=== PATIENT | male | born 1960 | race Caucasian/White ===

== ENCOUNTER → 2017-09-17 | Outpatient (CLI) | payer OTHER ==
[~2017-09-17] MED LIST: ALBIPROI INH; ALBU90OI; ARIP10 PO; ASPI325; ASPI325 PO; ATOR40TA PO; BASAGLAR K100 UNIT/1 SC; CEPH500 PO; CLOP75 PO; CRUTCH4 USE; FLUO10 PO; FLUO20 PO; Flomax0.4 MG PO; GABA100; GABA300 PO; GLIP5; HYDACE5 PO; IBUP800 PO; INSULANPEN SC; LAMO100 PO; LEVSOD150 PO; LISI5 PO; METF500 PO; METPRE4DP PO; Norco 7.5-3251 EACH PO; Novolog Fl100 UNIT/1 SC; OXYACE5T PO; PANT40 PO; POTASSIUM99 MG PO; PROM25 PO; Percocet 5-3251 EACH PO; RXERYTOPTH OP; RXHYDACE PO; RXOXYACE PO; SYNTHROID25 MCG PO; TRAZ100 PO; VICODIN 5-3001 EACH PO; ZOLP5 PO
== END ==
LOC: LAB SHORT 16:11 → LAB 16:11
DX: A49.02 Methicillin resistant Staphylococcus aureus infection, unspecified site (principal)
CPT/HCPCS: 87070; 87205

== ENCOUNTER 2018-01-05 12:30 | Emergency (ER) | payer OTHER ==
[~2018-01-05] VITALS: Ht 172.7 cm; Wt 122.5 kg
[~2018-01-05 12:30] MED LIST changes: +ARIP10; -ARIP10 PO; -ASPI325 PO; -ATOR40TA PO; -BASAGLAR K100 UNIT/1 SC; -CLOP75 PO; -IBUP800 PO; -LEVSOD150 PO; +LEVSOD50; -LISI5 PO; -Norco 7.5-3251 EACH PO; -Novolog Fl100 UNIT/1 SC; -PANT40 PO; -POTASSIUM99 MG PO; +ZOLP5; -ZOLP5 PO
[2018-01-05] MEDS ORDERED: LEVSOD150 PO (12:37)
[2018-01-05] MEDS ORDERED: ATOR10 PO (12:37)
[2018-01-05] MEDS ORDERED: Norco 7.5-3251 EACH PO (13:40)
== END 2018-01-05 13:46 | disposition home or self-care (01) ==
LOC: ER 12:30
DX: M79.672 Pain in left foot (principal); Z88.8 Allergy status to other drugs, medicaments and biological substances; Z79.899 Other long term (current) drug therapy; Z79.4 Long term (current) use of insulin; J44.9 Chronic obstructive pulmonary disease, unspecified; E11.9 Type 2 diabetes mellitus without complications; I25.2 Old myocardial infarction; Z87.891 Personal history of nicotine dependence
CPT/HCPCS: 10160; 99283

== ENCOUNTER 2018-03-17 07:03 | Day surgery (SDC) | payer OTHER ==
[~2018-03-17] VITALS: Ht 172.7 cm; Wt 125.9 kg
[~2018-03-17 07:03] MED LIST changes: -ARIP10; +ARIP10 PO; +ATOR40TA PO; +BASAGLAR K100 UNIT/1 SC; +IBUP800 PO; +LEVSOD150 PO; -LEVSOD50; +LISI5 PO; +Norco 7.5-3251 EACH PO; +Novolog Fl100 UNIT/1 SC; +PANT40 PO; +POTASSIUM99 MG PO; -ZOLP5; +ZOLP5 PO
[2018-03-17] MEDS ORDERED: CLOP75 PO (14:00)
[2018-03-17] MEDS ORDERED: ASPI325 PO (14:00)
== END 2018-03-17 18:17 | disposition home or self-care (01) ==
LOC: MHTC 07:03 → ICUW 15:24 → MHTC 18:17
PROC: 04CQ3ZZ Extirpation of Matter from Left Anterior Tibial Artery, Percutaneous Approach (ICD-10-PCS; principal; 2018-03-17)
PROC: 047L3Z1 Dilation of Left Femoral Artery using Drug-Coated Balloon, Percutaneous Approach (ICD-10-PCS; principal; 2018-03-17)
PROC: 04CL3ZZ Extirpation of Matter from Left Femoral Artery, Percutaneous Approach (ICD-10-PCS; principal; 2018-03-17)
PROC: 04CU3ZZ Extirpation of Matter from Left Peroneal Artery, Percutaneous Approach (ICD-10-PCS; principal; 2018-03-17)
PROC: 047Q3Z1 Dilation of Left Anterior Tibial Artery using Drug-Coated Balloon, Percutaneous Approach (ICD-10-PCS; principal; 2018-03-17)
PROC: 047U3Z1 Dilation of Left Peroneal Artery using Drug-Coated Balloon, Percutaneous Approach (ICD-10-PCS; principal; 2018-03-17)
DX: I70.212 Atherosclerosis of native arteries of extremities with intermittent claudication, left leg (principal); I70.92 Chronic total occlusion of artery of the extremities; I25.10 Atherosclerotic heart disease of native coronary artery without angina pectoris; I25.2 Old myocardial infarction; E11.65 Type 2 diabetes mellitus with hyperglycemia; E11.319 Type 2 diabetes mellitus with unspecified diabetic retinopathy without macular edema; E11.40 Type 2 diabetes mellitus with diabetic neuropathy, unspecified; J44.9 Chronic obstructive pulmonary disease, unspecified; E03.9 Hypothyroidism, unspecified; G47.33 Obstructive sleep apnea (adult) (pediatric); E78.5 Hyperlipidemia, unspecified; M19.90 Unspecified osteoarthritis, unspecified site; Z79.899 Other long term (current) drug therapy; Z79.4 Long term (current) use of insulin; Z87.891 Personal history of nicotine dependence; Z88.8 Allergy status to other drugs, medicaments and biological substances
CPT/HCPCS: 37225; 37229; 37233; 75630; 75774; 76937; 82947; 85347; 99152; 99153; C1714; C1725; C1769; C1884; C1885; C1887; C1894; C2623; J1644; J2250; J2720; J3010; J7030; J7040; Q9967

== ENCOUNTER 2018-04-10 13:06 | Emergency (ER) | payer OTHER ==
[~2018-04-10] VITALS: Ht 172.7 cm; Wt 124.7 kg
[~2018-04-10 13:06] MED LIST changes: +ASPI325 PO; +CLOP75 PO
[2018-04-10 13:45] LABS: BASOPHILS ABSOLUTE AUTO 0.05 K/mm3 (0.00-0.23); BASOPHILS PERCENT AUTO 1 % (0-2); EOSINOPHILS ABSOLUTE AUTO 0.31 K/mm3 (0.00-0.68); EOSINOPHILS PERCENT AUTO 3 % (0-6); Hematocrit 41.4 % (37.0-53.0); Hemoglobin 13.4 g/dL (13.5-17.5); IMMATURE GRAN ABSOLUTE AUTO 0.02 K/mm3 (0.00-0.10); IMMATURE GRAN PERCENT AUTO 0 % (0-1); LYMPHOCYTES ABSOLUTE AUTO 3.04 K/mm3 (0.84-5.20); LYMPHOCYTES PERCENT AUTO 31 % (21-46); MONOCYTES ABSOLUTE AUTO 0.69 K/mm3 (0.16-1.47); MONOCYTES PERCENT AUTO 7 % (4-13); Mean Corpuscular HGB 30.4 pg (26.0-34.0); Mean Corpuscular HGB Conc 32.4 g/dL (31.5-36.5); Mean Corpuscular Volume 94 fL (80-100); Mean Platelet Volume 10.6 fL (9.1-12.4); NEUTROPHILS ABSOLUTE AUTO 5.59 K/mm3 (1.96-9.15); NEUTROPHILS PERCENT AUTO 58 % (41-73); Platelet Count 321 K/mm3 (150-400); RDW Coefficient Variation 12.8 % (11.7-14.2); RDW Standard Deviation 44.3 fL (35.1-46.3); Red Blood Cell Count 4.41 M/mm3 (4.30-5.90)
[2018-04-10 14:05] LABS: Alanine Aminotransfer (ALT/SGP 44 U/L (12-78); Albumin, Blood 3.7 g/dL (3.4-5.0); Albumin/Globulin Ratio 0.9 (0.8-1.8); Alk Phos 137 U/L (50-136); Anion Gap 8 mmol/L (6-16); Aspartate Aminotrans (AST/SGOT 39 U/L (12-37); Bilirubin, Total 0.3 mg/dL (0.1-1.0); Blood Urea Nitrogen 22 mg/dL (8-24); Bun/Creatinine Ratio 16.9 (12.0-20.0); CO2, Blood 27 mmol/L (21-32); Calcium, Blood 8.7 mg/dL (8.5-10.1); Chloride, Blood 102 mmol/L (98-108); Globulin, Blood 4.1 g/dL (2.2-4.0); Glomerular Filtration Rate >60 (60-); Glucose, Blood 304 mg/dL (70-99); Potassium, Blood 4.4 mmol/L (3.5-5.5); Sodium, Blood 137 mmol/L (136-145); Total Protein, Blood 7.8 g/dL (6.4-8.2); Troponin I <0.015 ng/mL (0.000-0.040)
== END 2018-04-10 16:43 | disposition home or self-care (01) ==
LOC: ER 13:06
PROVIDERS: Physician Assistant
DX: R07.2 Precordial pain (principal); M79.661 Pain in right lower leg; J44.9 Chronic obstructive pulmonary disease, unspecified; E11.9 Type 2 diabetes mellitus without complications; I25.2 Old myocardial infarction; F32.9 Major depressive disorder, single episode, unspecified; Z88.8 Allergy status to other drugs, medicaments and biological substances; Z79.899 Other long term (current) drug therapy; Z79.4 Long term (current) use of insulin; Z79.82 Long term (current) use of aspirin; Z79.01 Long term (current) use of anticoagulants; Z79.51 Long term (current) use of inhaled steroids; Z87.891 Personal history of nicotine dependence
CPT/HCPCS: 36415; 71260; 80053; 83690; 83880; 84484; 85025; 93005; 93010; 93971; 96360; 99284-25; J7030; Q9967

== ENCOUNTER 2019-06-27 11:22 | Emergency (ER) | payer MEDICARE, BC ==
[~2019-06-27] VITALS: Ht 172.7 cm; Wt 122.5 kg
[2019-06-27 12:00] LABS: BASOPHILS ABSOLUTE AUTO 0.05 K/mm3 (0.00-0.23); BASOPHILS PERCENT AUTO 1 % (0-2); EOSINOPHILS ABSOLUTE AUTO 0.35 K/mm3 (0.00-0.68); EOSINOPHILS PERCENT AUTO 4 % (0-6); Hematocrit 45.8 % (37.0-53.0); Hemoglobin 14.9 g/dL (13.5-17.5); IMMATURE GRAN ABSOLUTE AUTO 0.04 K/mm3 (0.00-0.10); IMMATURE GRAN PERCENT AUTO 0 % (0-1); LYMPHOCYTES ABSOLUTE AUTO 2.26 K/mm3 (0.84-5.20); LYMPHOCYTES PERCENT AUTO 23 % (21-46); MONOCYTES ABSOLUTE AUTO 0.62 K/mm3 (0.16-1.47); MONOCYTES PERCENT AUTO 6 % (4-13); Mean Corpuscular HGB 29.7 pg (26.0-34.0); Mean Corpuscular HGB Conc 32.5 g/dL (31.5-36.5); Mean Corpuscular Volume 91 fL (80-100); Mean Platelet Volume 10.3 fL (9.1-12.4); NEUTROPHILS ABSOLUTE AUTO 6.39 K/mm3 (1.96-9.15); NEUTROPHILS PERCENT AUTO 66 % (41-73); Platelet Count 316 K/mm3 (150-400); RDW Coefficient Variation 12.9 % (11.7-14.2); RDW Standard Deviation 42.7 fL (35.1-46.3); Red Blood Cell Count 5.01 M/mm3 (4.30-5.90); White Blood Cell Count 9.71 K/mm3 (4.00-11.30)
[2019-06-27 12:30] LABS: Troponin I <0.015 ng/mL (0.000-0.040)
[2019-06-27 12:31] LABS: Alanine Aminotransfer (ALT/SGP 34 U/L (12-78); Albumin, Blood 3.6 g/dL (3.4-5.0); Albumin/Globulin Ratio 0.9 (0.8-1.8); Alk Phos 119 U/L (50-136); Anion Gap 4 mmol/L (6-16); Aspartate Aminotrans (AST/SGOT 26 U/L (12-37); Bilirubin, Total 0.4 mg/dL (0.1-1.0); Blood Urea Nitrogen 21 mg/dL (8-24); CO2, Blood 27 mmol/L (21-32); Calcium, Blood 9.4 mg/dL (8.5-10.1); Chloride, Blood 108 mmol/L (98-108); Creatinine, Blood 0.75 mg/dL (0.60-1.20); Globulin, Blood 4.2 g/dL (2.2-4.0); Glomerular Filtration Rate >60 (60-); Glucose, Blood 124 mg/dL (70-99); Potassium, Blood 4.6 mmol/L (3.5-5.5); Sodium, Blood 139 mmol/L (136-145); Total Protein, Blood 7.8 g/dL (6.4-8.2)
== END 2019-06-27 16:00 | disposition home or self-care (01) ==
LOC: ER 11:22
PROVIDERS: Physician Assistant
DX: M79.661 Pain in right lower leg (principal); J44.9 Chronic obstructive pulmonary disease, unspecified; I25.2 Old myocardial infarction; E11.9 Type 2 diabetes mellitus without complications; F32.9 Major depressive disorder, single episode, unspecified
CPT/HCPCS: 36415; 71046; 80053; 84484; 85025; 85379; 93005; 93010; 99284-25

== ENCOUNTER 2019-10-31 09:10 | Day surgery (SDC) | payer MEDICARE, BC ==
[~2019-10-31] VITALS: Ht 172.7 cm; Wt 120.5 kg
[~2019-10-31 09:10] MED LIST changes: +Cilostazol100 MG PO; +VENTOLIN INH
--- NOTE | 2019-10-31 16:47 | NUR ---
PT BROUGHT BACK TO RECOVERY ROOM WITH FEMSTOP IN PLACE TO LEFT GROIN SITE. REPORTED THAT ANGIOSEAL CLOSURE DEVICE WAS NOT SUCCESSFUL. NO ACTIVE BLEEDING NOTED AT THIS TIME. PT APPEARS DROWSY, SNORING, BUT OPENS EYES TO COMMAND. PT ABLE TO FOLLOW COMMANDS, ALTHOUGH APPEARS ALTERED ASKING REPEATATIVE QUESTIONS. RIGHT PEDAL ACCESS SITES WNL. CLEAR TEGADERMS INTACT TO BOTH PEDAL ACCESS SITES. AWAITING PCU BED FOR EXTENDED RECOVERY. PHONE CALL PLACED TO PT'S TO INFORM HER OF DISCHARGE TIME. WILL CONTINUE TO MONITOR. VSS.
--- NOTE | 2019-10-31 17:13 | NUR ---
TRANSFER OF CARE: THIS NURSE TO TAKE OVER CARE FOR KAITY Yang RN.
--- NOTE | 2019-10-31 18:23 | NUR ---
EXT. RECOVERY ADMISSION / SHIFT SUMMARY: PT ARRIVED TO ICU 11 AT APPROX 1745. ON ARRIVAL, HE IS A&O, PLEASANT & COOPERATIVE. ANGIO SITES TO R DP, R PT & L GROIN. ALL SITES ARE WNL, FREE OF BLEEDING, BRUISING OR HEMATOMA FORMATION. PT ON 1L NC FOR DESATS WHEN SLEEPING R/T LENA DX. LS CLEAR T/O. MONITOR SHOWS SR W/ HR 60s, BP STABLE. PT HAS NO GI COMPLAINTS OTHER THAN BEING HUNGRY, HE IS ABLE TO VOID W/ USE OF URINAL & STAFF ASSIST. NO ACUTE CHANGES SINCE ASSUMING CARE. PT IS NOW SITTING UP W/ HOB AT 30 DEGREES. ALL ANGIO SITES REMAIN STABLE & WNL. PT TOLERATING PO INTAKE W/O DIFFICULTY. PLAN IS FOR HIM TO D/C HOME AT 2030, D/C PAPERWORK HAS BEEN COMPLETED BY HC RN & IS IN CHART. WILL CONTINUE TO MONITOR & REPORT OFF TO ONCOMING RN.
--- NOTE | 2019-10-31 19:58 | NUR ---
REVIEWED DISCHARGE MEDICATIONS WITH PT. WILL REVIEW WITH HIS SPOUSE PRIOR TO DISCHARGE.
--- NOTE | 2019-10-31 20:03 | NUR ---
PT A&0X3. DENIES PAIN. ARMINDA DRESSING INTACT TO RIGHT DP-OLD BLOOD NOTED, BUT IT DOESN'T EXTEND PAST DEMARCATED AREA. PT WITH CLEAR OCCLLUSIVE DRESSING-NO ACUTE BLEEDING OR HEMATOMA TO EITHER SITE-RIGHT DP/PT PULSES 1+ LEFT FEMORAL SITE WITH ANGIOSEAL-RIGHT GROIN IS SOFT AND ARV-PIXOHR-OH BLEEDING OR HEMATOMA. ECG SHOWS SR WITH RATE 60'S. SBP 140-160'S/80-90'S. LUNGS DISTANT, BUT PT DENIES SOB AND MAINTAINS SATS>90% ON RA. TOLERATING PO WELL. MED WITH PLETAL PER DR. MONTALVO ORDERS-SEE EMAR. REVIEWED DISCHARGE INSTRUCTIONS AND MED WITH PT. WILL REVIEW WHEN SPOUSE ARRIVE-LEFT WRITTEN DISCHARGE INSTRUCTIONS AND ENCOURAGED PT TO REVIEW AND ASK QUESTIONS PRN. PT VERBALIZES AGREEMENT.
--- NOTE | 2019-10-31 20:30 | NUR ---
REVIEWED DISCHARGE INSTRUCTIONS WITH PT AND SPOUSE-ALLOWED FOR BOTH TO ANSWER QUESTIONS. PT AND SPOUSE GALLITO DENIED ANY QUESTIONS AT THIS TIME. DISCHARGED TO HOME, OUT VIA WHEELCHAIR WITH DISCHARGE INSTRUCTIONS AND BELONGINGS ON HAND.
== END 2019-10-31 20:30 | disposition home or self-care (01) ==
LOC: MHTC 09:10 → ICUW 17:55 → MHTC 17:55 → ICUW 18:00 → MHTC 20:30
PROC: 04CM3ZZ Extirpation of Matter from Right Popliteal Artery, Percutaneous Approach (ICD-10-PCS; principal; 2019-10-31)
PROC: B41D1ZZ Fluoroscopy of Aorta and Bilateral Lower Extremity Arteries using Low Osmolar Contrast (ICD-10-PCS; principal; 2019-10-31)
PROC: 04CK3ZZ Extirpation of Matter from Right Femoral Artery, Percutaneous Approach (ICD-10-PCS; principal; 2019-10-31)
PROC: 047P3ZZ Dilation of Right Anterior Tibial Artery, Percutaneous Approach (ICD-10-PCS; principal; 2019-10-31)
PROC: 047M3Z1 Dilation of Right Popliteal Artery using Drug-Coated Balloon, Percutaneous Approach (ICD-10-PCS; principal; 2019-10-31)
PROC: 047K3Z1 Dilation of Right Femoral Artery using Drug-Coated Balloon, Percutaneous Approach (ICD-10-PCS; principal; 2019-10-31)
DX: E11.51 Type 2 diabetes mellitus with diabetic peripheral angiopathy without gangrene (principal); I70.213 Atherosclerosis of native arteries of extremities with intermittent claudication, bilateral legs; E11.40 Type 2 diabetes mellitus with diabetic neuropathy, unspecified; I25.10 Atherosclerotic heart disease of native coronary artery without angina pectoris; E11.319 Type 2 diabetes mellitus with unspecified diabetic retinopathy without macular edema; J44.9 Chronic obstructive pulmonary disease, unspecified; E03.9 Hypothyroidism, unspecified; G47.33 Obstructive sleep apnea (adult) (pediatric); E78.5 Hyperlipidemia, unspecified; M19.90 Unspecified osteoarthritis, unspecified site; E66.9 Obesity, unspecified; I69.328 Other speech and language deficits following cerebral infarction; I25.2 Old myocardial infarction; Z79.1 Long term (current) use of non-steroidal anti-inflammatories (NSAID); Z79.02 Long term (current) use of antithrombotics/antiplatelets; Z79.4 Long term (current) use of insulin; Z79.899 Other long term (current) drug therapy; Z87.891 Personal history of nicotine dependence; Z88.8 Allergy status to other drugs, medicaments and biological substances
CPT/HCPCS: 37225; 37228; 37232; 75625; 75716; 75774; 76937; 82947; 85347; 99152; 99153; C1724; C1725; C1760; C1769; C1887; C1894; C2623; J1644; J2250; J3010; J7030; J7040; Q9967

== ENCOUNTER 2020-01-24 10:17 | Day surgery (SDC) | payer BC, MEDICARE ==
[~2020-01-24] VITALS: Ht 172.7 cm; Wt 120.0 kg
[~2020-01-24 10:17] MED LIST changes: +ALBU90OI INH; +ARIPIPRAZOLE15 MG PO; +HUMALOG KW100 UNIT/1 SQ; +PROZAC20 MG PO; +SYNTHROID175 MC1 PO; +TRAZ50 PO; +TRULICITY1.5 MG/0.5 SC; +XARELTO15 MG PO
--- NOTE | 2020-01-24 15:51 | NUR ---
PT TO RECOVERY ROOM POST PROCEDURE. PT IS AWAKE AND CONVERSING APPROPRIATELY, DENIES PAIN POST PROCEDURE. MONITOR SR 70'S, B/P 164/84, AFEBRILE, SPO2 97% RA. L GROIN SITE NO SWELLING/HEMATOMA, TEGADERM DRSG INTACT; ANGIO SEAL DEPLOYED. BLE: RLE-2+ X 2, LLE-1+ x 2.
--- NOTE | 2020-01-24 17:10 | NUR ---
PT AMB TO BATHROOM WITHOUT ISSUE, SITE UNCHANGED.
--- NOTE | 2020-01-24 17:35 | NUR ---
PT TOOK DINNER WITHOUT ISSUE.
--- NOTE | 2020-01-24 17:50 | NUR ---
PT DRESSED SELF WITHOUT ISSUE, SITE UNCHANGED; IV REMOVED-CANNULA INTACT.
--- NOTE | 2020-01-24 18:03 | NUR ---
PT RECEIVED DISCHARGE INSTRUCTIONS, MED LIST AND AFTER CARE INSTRUCTIONS; VERBALIZED GOOD UNDERSTANDING. PT LEFT FACILITY VIA W/C, CONDITION STABLE.
== END 2020-01-24 22:57 | disposition home or self-care (01) ==
LOC: MHTC 10:17
DX: I70.213 Atherosclerosis of native arteries of extremities with intermittent claudication, bilateral legs (principal)
CPT/HCPCS: 37228; 37232; 75625; 75716; 75774; 82947; 85347; 99152; 99153; C1725; C1757; C1769; C1887; C1894; C2623; C9764; J0360; J1644; J2250; J3010; J7030; Q9967

== ENCOUNTER 2020-06-04 17:50 | Emergency (ER) | payer BC, MEDICARE ==
[~2020-06-04] VITALS: Ht 172.7 cm; Wt 119.8 kg
[2020-06-04] MEDS ORDERED: TRULICITY (19:08)
[2020-06-04 19:58] LABS: BASOPHILS ABSOLUTE AUTO 0.06 K/mm3 (0.00-0.23); BASOPHILS PERCENT AUTO 1 % (0-2); EOSINOPHILS ABSOLUTE AUTO 0.18 K/mm3 (0.00-0.68); EOSINOPHILS PERCENT AUTO 2 % (0-6); Hematocrit 41.2 % (37.0-53.0); Hemoglobin 13.8 g/dL (13.5-17.5); IMMATURE GRAN ABSOLUTE AUTO 0.04 K/mm3 (0.00-0.10); IMMATURE GRAN PERCENT AUTO 0 % (0-1); LYMPHOCYTES ABSOLUTE AUTO 2.36 K/mm3 (0.84-5.20); LYMPHOCYTES PERCENT AUTO 23 % (21-46); MONOCYTES ABSOLUTE AUTO 0.79 K/mm3 (0.16-1.47); MONOCYTES PERCENT AUTO 8 % (4-13); Mean Corpuscular HGB 30.1 pg (26.0-34.0); Mean Corpuscular HGB Conc 33.5 g/dL (31.5-36.5); Mean Corpuscular Volume 90 fL (80-100); Mean Platelet Volume 10.8 fL (9.1-12.4); NEUTROPHILS ABSOLUTE AUTO 6.95 K/mm3 (1.96-9.15); NEUTROPHILS PERCENT AUTO 67 % (41-73); Platelet Count 277 K/mm3 (150-400); RDW Coefficient Variation 12.5 % (11.7-14.2); RDW Standard Deviation 40.8 fL (35.1-46.3); Red Blood Cell Count 4.59 M/mm3 (4.30-5.90); White Blood Cell Count 10.38 K/mm3 (4.00-11.30)
[2020-06-04 20:18] LABS: Alanine Aminotransfer (ALT/SGP 29 U/L (12-78); Albumin, Blood 3.7 g/dL (3.4-5.0); Alk Phos 113 U/L (50-136); Anion Gap 7 mmol/L (6-16); Aspartate Aminotrans (AST/SGOT 18 U/L (12-37); Bilirubin, Total 0.3 mg/dL (0.1-1.0); Blood Urea Nitrogen 20 mg/dL (8-24); Bun/Creatinine Ratio 16.5 (12.0-20.0); CO2, Blood 27 mmol/L (21-32); Calcium, Blood 9.2 mg/dL (8.5-10.1); Chloride, Blood 103 mmol/L (98-108); Creatinine, Blood 1.21 mg/dL (0.60-1.20); Globulin, Blood 3.8 g/dL (2.2-4.0); Glomerular Filtration Rate >60 (60-); Glucose, Blood 432 mg/dL (70-99); Potassium, Blood 4.2 mmol/L (3.5-5.5); Sodium, Blood 137 mmol/L (136-145); Total Protein, Blood 7.5 g/dL (6.4-8.2)
[2020-06-04 20:37] LABS: CPK Creatine Kinase 121 U/L (39-308); Creatine Kinase MB 2.5 ng/mL (0.0-3.6); Creatine Kinase MB Index 2.1 (0.0-4.0); Troponin I <0.015 ng/mL (0.000-0.040)
[2020-06-04 21:25] LABS: Source, Urine Clean Catch
[2020-06-04 21:27] LABS: Bilirubin, Urine Neg (Neg); Blood, Urine Neg (Neg); Glucose Qualitative, Urine 4+ (Neg); Ketones, Urine Neg (Neg); Leukocyte Esterase, Urine Neg (Neg); Nitrite, Urine Neg (Neg); Protein, Urine 2+ (Neg); Specific Gravity, Urine 1.015 (1.003-1.022); Urobilinogen, Urine NORM (Normal)
[2020-06-04 21:33] LABS: Appearance, Urine Clear (Clear); Color, Urine Yellow (P-Yellow)
[2020-06-04 21:34] LABS: Amorphous Light (0-Heavy); Bacteria Not Seen /hpf; Red Blood Cells, Urine 0-2 /hpf (0-2); Squamous Epithelial Cells Not Seen /hpf (Few); White Blood Cells, Urine 0-2 /hpf (0-5)
== END 2020-06-04 22:22 | disposition home or self-care (01) ==
LOC: ER 17:50
PROVIDERS: Emergency Medicine
DX: I95.9 Hypotension, unspecified (principal); J44.9 Chronic obstructive pulmonary disease, unspecified; E11.51 Type 2 diabetes mellitus with diabetic peripheral angiopathy without gangrene; I25.10 Atherosclerotic heart disease of native coronary artery without angina pectoris; F32.9 Major depressive disorder, single episode, unspecified; E78.5 Hyperlipidemia, unspecified; E03.9 Hypothyroidism, unspecified; K21.9 Gastro-esophageal reflux disease without esophagitis; Z79.4 Long term (current) use of insulin; Z79.899 Other long term (current) drug therapy; Z79.02 Long term (current) use of antithrombotics/antiplatelets; Z79.01 Long term (current) use of anticoagulants; Z86.73 Personal history of transient ischemic attack (TIA), and cerebral infarction without residual deficits; Z87.891 Personal history of nicotine dependence
CPT/HCPCS: 36415; 70450; 71045; 80053; 81001; 82550; 82553; 84484; 85025; 93005; 93010; 99284-25

== ENCOUNTER 2020-07-03 11:13 | Day surgery (SDC) | payer BC, MEDICARE ==
[~2020-07-03] VITALS: Ht 172.7 cm; Wt 111.9 kg
[~2020-07-03 11:13] MED LIST changes: +CILO100 PO; +HUMALOG KW100 UNIT/1 SC; +TRULICITY
--- NOTE | 2020-07-03 12:38 | NUR ---
07/03/20 [address] AMARAL & DR. TY NOTIFIED OF PT.'S CBG OF 334, ORDERS GIVEN BY DR. TY TO GIVE 6 UNITS OF REGULAR INSULIN SQ WHICH WAS GIVEN. PT VERBALIZES HE HASN'T CHECKED HIS CBG IN OVER A WEEK & HASN'T TAKEN ANY REGULAR INSULIN IN OVER A WEEK. PT. DID TAKE HIS METFORMIN ER TODAY AT 0800. PT. WITH ALLERGY TO REGULAR METFORMIN BUT CAN TAKE THE EXTENDED RELEASE ON. ALSO DENIES ALLERGY TO TRULICITY. PT. ALSO HAS SLEEP APNEA BUT DOESN'T USE HIS CPAP. DR. TY INSTRUCTED PT. ON IMPORTANCE OF USING HIS CPAP.
--- NOTE | 2020-07-03 13:38 | NUR ---
07/03/20 1338 Kaelyn Law [address] TY NOTIFIED, NO NEW ORDERS.
== END 2020-07-03 13:32 | disposition home or self-care (01) ==
LOC: ORSCSDS 11:13
DX: R19.7 Diarrhea, unspecified (principal); Z86.010 Personal history of colon polyps; D12.2 Benign neoplasm of ascending colon; D12.3 Benign neoplasm of transverse colon; K63.5 Polyp of colon; K57.30 Diverticulosis of large intestine without perforation or abscess without bleeding; K64.1 Second degree hemorrhoids; I10 Essential (primary) hypertension; I25.10 Atherosclerotic heart disease of native coronary artery without angina pectoris; J44.9 Chronic obstructive pulmonary disease, unspecified; E11.65 Type 2 diabetes mellitus with hyperglycemia; E03.9 Hypothyroidism, unspecified; Z86.73 Personal history of transient ischemic attack (TIA), and cerebral infarction without residual deficits; E66.01 Morbid (severe) obesity due to excess calories; Z68.37 Body mass index [BMI] 37.0-37.9, adult; Z79.01 Long term (current) use of anticoagulants; Z79.82 Long term (current) use of aspirin; Z79.4 Long term (current) use of insulin
CPT/HCPCS: 82947; 88305; J1815; J2704; J7120

== ENCOUNTER 2020-09-11 19:40 | Observation (INO) | payer BC, MEDICARE, OTHER ==
[~2020-09-11] VITALS: Ht 172.7 cm; Wt 120.2 kg
[2020-09-11] MEDS ORDERED: TRAZ50 PO (20:43)
[2020-09-11] MEDS ORDERED: CILO100 PO (20:43)
[2020-09-11] MEDS ORDERED: PANTOPRAZOLE SO40 M2 PO (20:43)
[2020-09-11] MEDS ORDERED: GABAPENTIN600 MG PO (20:43)
[2020-09-11] MEDS ORDERED: EUTHYROX175 MC1 PO (20:44)
[2020-09-11] MEDS ORDERED: XARELTO20 MG PO (20:44)
[2020-09-11] MEDS ORDERED: METFORMIN HCL500 M3 PO (20:45)
[2020-09-11] MEDS ORDERED: OXYC5 PO (20:45)
[2020-09-11] MEDS ORDERED: ATORVASTATIN CA20 MG PO (20:46)
[2020-09-11] MEDS ORDERED: HUMALOG KW100 UNIT/1 SC (20:47)
[2020-09-11] MEDS ORDERED: BASAGLAR K100 UNIT/1 SC (20:48)
[2020-09-11 23:03] LABS: Alanine Aminotransfer (ALT/SGP 32 U/L (12-78); Albumin, Blood 3.6 g/dL (3.4-5.0); Alk Phos 125 U/L (50-136); Anion Gap 4 mmol/L (6-16); Aspartate Aminotrans (AST/SGOT 28 U/L (12-37); Bilirubin, Total 0.5 mg/dL (0.1-1.0); Blood Urea Nitrogen 17 mg/dL (8-24); Bun/Creatinine Ratio 19.2 (12.0-20.0); CO2, Blood 28 mmol/L (21-32); CPK Creatine Kinase 335 U/L (39-308); Calcium, Blood 8.8 mg/dL (8.5-10.1); Chloride, Blood 107 mmol/L (98-108); Creatinine, Blood 0.89 mg/dL (0.60-1.20); Globulin, Blood 3.7 g/dL (2.2-4.0); Glomerular Filtration Rate >60 (60-); Glucose, Blood 145 mg/dL (70-99); Potassium, Blood 4.4 mmol/L (3.5-5.5); Sodium, Blood 139 mmol/L (136-145); Total Protein, Blood 7.3 g/dL (6.4-8.2)
[2020-09-11 23:03] LABS: BASOPHILS ABSOLUTE AUTO 0.05 K/mm3 (0.00-0.23); BASOPHILS PERCENT AUTO 0 % (0-2); EOSINOPHILS PERCENT AUTO 3 % (0-6); Hematocrit 40.3 % (37.0-53.0); Hemoglobin 13.3 g/dL (13.5-17.5); IMMATURE GRAN ABSOLUTE AUTO 0.03 K/mm3 (0.00-0.10); IMMATURE GRAN PERCENT AUTO 0 % (0-1); LYMPHOCYTES ABSOLUTE AUTO 2.68 K/mm3 (0.84-5.20); LYMPHOCYTES PERCENT AUTO 22 % (21-46); MONOCYTES ABSOLUTE AUTO 1.39 K/mm3 (0.16-1.47); MONOCYTES PERCENT AUTO 11 % (4-13); Mean Corpuscular Volume 91 fL (80-100); Mean Platelet Volume 10.3 fL (9.1-12.4); NEUTROPHILS ABSOLUTE AUTO 7.75 K/mm3 (1.96-9.15); NEUTROPHILS PERCENT AUTO 64 % (41-73); Platelet Count 370 K/mm3 (150-400); RDW Coefficient Variation 12.8 % (11.7-14.2); RDW Standard Deviation 42.2 fL (35.1-46.3); Red Blood Cell Count 4.44 M/mm3 (4.30-5.90)
[2020-09-11 23:21] LABS: Creatine Kinase MB 4.1 ng/mL (0.0-3.6); Creatine Kinase MB Index 1.2 (0.0-4.0)
[2020-09-12] MEDS ORDERED: TRULICITY0.75 MG/01 (00:17)
--- NOTE | 2020-09-12 00:45 | NUR ---
PT ARRIVED TO ROOM FROM ER. PT ACCOMPANIED BY . PT A/O, VSS. RLE SWOLLEN W/2+EDEMA TO FOOT, CALF MUSCLE TIGHT, SWOLLEN AND BOUND UP NEAR TOP OF CALF. PT WIGGLES TOES, REP PAIN W/ATTEMPTING TO FLEX FOOT. PT REP HE HAS BEEN ABLE TO BEAR WT ON LEG. CAP REFILL WNL, PEDAL PULSE PRESENT. DR RYAN IN ROOM TO SEE PT. PLAN TO WRAP LEG W/SHERRY WRAP, ELEVATE AND APPLY ICE. PT EDUCATED ON NPO STATUS. WILL MONITOR AND TX PER ORDERS.
[2020-09-12 05:54] LABS: BASOPHILS ABSOLUTE AUTO 0.05 K/mm3 (0.00-0.23); BASOPHILS PERCENT AUTO 1 % (0-2); EOSINOPHILS ABSOLUTE AUTO 0.22 K/mm3 (0.00-0.68); EOSINOPHILS PERCENT AUTO 2 % (0-6); IMMATURE GRAN ABSOLUTE AUTO 0.03 K/mm3 (0.00-0.10); IMMATURE GRAN PERCENT AUTO 0 % (0-1); LYMPHOCYTES ABSOLUTE AUTO 1.87 K/mm3 (0.84-5.20); LYMPHOCYTES PERCENT AUTO 21 % (21-46); MONOCYTES ABSOLUTE AUTO 0.79 K/mm3 (0.16-1.47); MONOCYTES PERCENT AUTO 9 % (4-13); Mean Corpuscular HGB 29.5 pg (26.0-34.0); Mean Corpuscular HGB Conc 32.5 g/dL (31.5-36.5); Mean Corpuscular Volume 91 fL (80-100); Mean Platelet Volume 10.4 fL (9.1-12.4); NEUTROPHILS ABSOLUTE AUTO 6.14 K/mm3 (1.96-9.15); NEUTROPHILS PERCENT AUTO 68 % (41-73); Platelet Count 330 K/mm3 (150-400); RDW Coefficient Variation 12.8 % (11.7-14.2); RDW Standard Deviation 42.5 fL (35.1-46.3)
[2020-09-12 06:05] LABS: SARS-Cov-2 (COVID-19) PCR, MMC NEGATIVE (NEGATIVE)
[2020-09-12 06:06] LABS: Influenza A, PCR NEGATIVE (NEGATIVE); Influenza B, PCR NEGATIVE (NEGATIVE); Resp Syncytial Virus, PCR NEGATIVE (NEGATIVE)
[2020-09-12 06:08] LABS: Prothrombin Time Results 10.7 Sec (9.7-11.5)
[2020-09-12 06:24] LABS: Anion Gap 5 mmol/L (6-16); Blood Urea Nitrogen 14 mg/dL (8-24); Bun/Creatinine Ratio 16.5 (12.0-20.0); CO2, Blood 29 mmol/L (21-32); Calcium, Blood 8.8 mg/dL (8.5-10.1); Chloride, Blood 107 mmol/L (98-108); Creatinine, Blood 0.85 mg/dL (0.60-1.20); Glomerular Filtration Rate >60 (60-); Glucose, Blood 182 mg/dL (70-99); Sodium, Blood 141 mmol/L (136-145)
--- NOTE | 2020-09-12 06:40 | NUR ---
PT VSS HAD NO CHANGES SINCE ARRIVING TO FLOOR. SHERRY WRAP IN PLACE TO RLE, LEG ELEVATED W/ICE APPLIED. SWELLING APPEARS IMPROVED, CAP REFILL AND PULSE WNL. PT DENIED N/T. PT REP LEG LESS PAINFUL, DECLINED NEED FOR PAIN MEDS. PT NPO SINCE ARRIVING TO FLOOR. DR ADAMS IN TO SEE PT THIS AM, UPDATED ON PT STATUS.
--- NOTE | 2020-09-12 14:56 | NUR ---
DR REZA IN TO SEE PT.
--- NOTE | 2020-09-12 17:15 | NUR ---
DISCHARGED PT REC'D ORTHO BOOT W/INSTRUCTIONS FOR USE. FOUND PT AMBULATING IN ROOM W/O BOOT ON, REITERATED THAT MUST WEAR BOOT WHEN AMBULATING. PT VERBALIZED UNDERSTANDING. REVIEWED DC INSTRUCTIONS W/PT; VERBALIZED UNDERSTANDING. DC'D IV, CATHETER INTACT. REMOVED AND RETURNED TELE. PT AWAITING RIDE.
--- NOTE | 2020-09-12 17:40 | NUR ---
PT LEFT UNIT IN WC W/POSSESSIONS TO RIDE AWAITING OUTSIDE.
== END 2020-09-12 17:25 | disposition home or self-care (01) ==
LOC: ER 19:40 → SURS 23:28
PROVIDERS: Physician Assistant; ADMIT Internal Medicine
DX: S86.011A Strain of right Achilles tendon, initial encounter (principal); V48.4XXA Person boarding or alighting a car injured in noncollision transport accident, initial encounter; G47.33 Obstructive sleep apnea (adult) (pediatric); E11.51 Type 2 diabetes mellitus with diabetic peripheral angiopathy without gangrene; E11.42 Type 2 diabetes mellitus with diabetic polyneuropathy; E11.319 Type 2 diabetes mellitus with unspecified diabetic retinopathy without macular edema; J44.9 Chronic obstructive pulmonary disease, unspecified; I25.2 Old myocardial infarction; E78.5 Hyperlipidemia, unspecified; K21.9 Gastro-esophageal reflux disease without esophagitis; I25.10 Atherosclerotic heart disease of native coronary artery without angina pectoris; E03.9 Hypothyroidism, unspecified; E66.01 Morbid (severe) obesity due to excess calories; I69.928 Other speech and language deficits following unspecified cerebrovascular disease; Z68.41 Body mass index [BMI] 40.0-44.9, adult; Z79.01 Long term (current) use of anticoagulants; Z87.891 Personal history of nicotine dependence; Z79.4 Long term (current) use of insulin; Z88.8 Allergy status to other drugs, medicaments and biological substances; Z20.822 Contact with and (suspected) exposure to COVID-19
CPT/HCPCS: 0241U; 36415; 73590; 80048; 80053; 82550; 82553; 82947; 85025; 85610; 93926; 93971; 96372; 96374; 99285-25; A9270; G0008; G0378; J1644; J3010; Q2038

== ENCOUNTER 2021-11-05 06:33 | Day surgery (SDC) | payer BC ==
[~2021-11-05] VITALS: Ht 172.7 cm; Wt 117.0 kg
[~2021-11-05 06:33] MED LIST changes: +ATORVASTATIN CA20 MG PO; +EUTHYROX175 MC1 PO; +GABAPENTIN600 MG PO; +METFORMIN HCL500 M3 PO; +OXYC5 PO; +PANTOPRAZOLE SO40 M2 PO; +TRULICITY0.75 MG/01; +XARELTO20 MG PO
--- NOTE | 2021-11-05 13:54 | NUR ---
PT UP AND DRESSED, TO AND FROM BATHROOM. BOTH R GROIN AND LEFT PT SITES STABLE. SALINE LOCK REMOVED WITH CATHETER INTACT. DISCHARGE INSTRUCTIONS REVIEWED WITH PT, VERBALIZES UNDERSTANDING. PT TO PRIVATE VEHICLE PER W/C WITH ONE STAFF.
== END 2021-11-05 13:45 | disposition home or self-care (01) ==
LOC: MHTC 06:33
DX: E11.51 Type 2 diabetes mellitus with diabetic peripheral angiopathy without gangrene (principal); I70.213 Atherosclerosis of native arteries of extremities with intermittent claudication, bilateral legs; I10 Essential (primary) hypertension; J44.9 Chronic obstructive pulmonary disease, unspecified; E03.9 Hypothyroidism, unspecified; Z87.891 Personal history of nicotine dependence; Z88.8 Allergy status to other drugs, medicaments and biological substances
CPT/HCPCS: 76937; 85347; 99152; 99153; C1714; C1725; C1760; C1769; C1887; C1894; C2623; J0360; J1644; J2250; J3010; J7030; J7040; Q9967

== ENCOUNTER 2021-11-14 08:13 | Emergency (ER) | payer BC ==
[~2021-11-14] VITALS: Ht 172.7 cm; Wt 114.8 kg
== END 2021-11-14 11:18 | disposition home or self-care (01) ==
LOC: ER 08:13
DX: G89.18 Other acute postprocedural pain (principal); M79.662 Pain in left lower leg; J44.9 Chronic obstructive pulmonary disease, unspecified; E11.9 Type 2 diabetes mellitus without complications; I25.2 Old myocardial infarction; Z87.891 Personal history of nicotine dependence; Z79.4 Long term (current) use of insulin; Z79.899 Other long term (current) drug therapy
CPT/HCPCS: 93926

== ENCOUNTER → 2021-12-31 | Outpatient (CLI) | payer BC, OTHER ==
[~2021-12-31] MED LIST changes: +ABILIFY MYCITE PO; +Golytely Solu4000 ML PO; +PROZAC20 M2 PO
== END | disposition home or self-care (01) ==
LOC: LAB SHORT 10:33 → LAB 10:33
DX: S90.822A Blister (nonthermal), left foot, initial encounter (principal); E11.621 Type 2 diabetes mellitus with foot ulcer; L97.522 Non-pressure chronic ulcer of other part of left foot with fat layer exposed; L08.9 Local infection of the skin and subcutaneous tissue, unspecified
CPT/HCPCS: 87070; 87205

== ENCOUNTER → 2022-02-04 | Day surgery (SDC) | payer BC, OTHER | LOC: WOUND 02:35 | DX: E11.621 Type 2 diabetes mellitus with foot ulcer (principal); L97.522 Non-pressure chronic ulcer of other part of left foot with fat layer exposed; E11.51 Type 2 diabetes mellitus with diabetic peripheral angiopathy without gangrene; I70.213 Atherosclerosis of native arteries of extremities with intermittent claudication, bilateral legs; I10 Essential (primary) hypertension; Z88.8 Allergy status to other drugs, medicaments and biological substances; Z87.891 Personal history of nicotine dependence; E11.40 Type 2 diabetes mellitus with diabetic neuropathy, unspecified | CPT/HCPCS: A9270; G0463 ==

== ENCOUNTER 2022-02-11 01:18 | Day surgery (SDC) | payer BC, MEDICARE, OTHER | END 2022-02-11 23:40 | disposition home or self-care (01) | LOC: WOUND 01:18 | DX: E11.621 Type 2 diabetes mellitus with foot ulcer (principal); L97.525 Non-pressure chronic ulcer of other part of left foot with muscle involvement without evidence of necrosis; E11.51 Type 2 diabetes mellitus with diabetic peripheral angiopathy without gangrene; I70.213 Atherosclerosis of native arteries of extremities with intermittent claudication, bilateral legs; I10 Essential (primary) hypertension | CPT/HCPCS: A9270 ==

== ENCOUNTER 2022-02-18 12:15 | Inpatient (IN) | payer BC, MEDICARE, OTHER ==
[~2022-02-18] VITALS: Ht 172.7 cm; Wt 109.0 kg
[~2022-02-18 12:15] MED LIST changes: -ATORVASTATIN CA20 MG PO; +ATORVASTATIN CA40 M1 PO; +BASAGLAR K100 UNIT/1; -EUTHYROX175 MC1 PO; +LEVOTHYROXINE200 MCG PO; +XARELTO2.5 M1 PO; -XARELTO20 MG PO
[2022-02-18 16:42] LABS: BASOPHILS ABSOLUTE AUTO 0.04 K/mm3 (0.00-0.23); BASOPHILS PERCENT AUTO 0 % (0-2); EOSINOPHILS ABSOLUTE AUTO 0.01 K/mm3 (0.00-0.68); EOSINOPHILS PERCENT AUTO 0 % (0-6); Hematocrit 38.8 % (37.0-53.0); IMMATURE GRAN ABSOLUTE AUTO 0.11 K/mm3 (0.00-0.10); IMMATURE GRAN PERCENT AUTO 1 % (0-1); LYMPHOCYTES ABSOLUTE AUTO 1.28 K/mm3 (0.84-5.20); LYMPHOCYTES PERCENT AUTO 7 % (21-46); MONOCYTES ABSOLUTE AUTO 0.98 K/mm3 (0.16-1.47); MONOCYTES PERCENT AUTO 5 % (4-13); Mean Corpuscular HGB 29.1 pg (26.0-34.0); Mean Corpuscular HGB Conc 33.5 g/dL (31.5-36.5); Mean Corpuscular Volume 87 fL (80-100); Mean Platelet Volume 10.1 fL (9.1-12.4); NEUTROPHILS ABSOLUTE AUTO 16.34 K/mm3 (1.96-9.15); NEUTROPHILS PERCENT AUTO 87 % (41-73); Platelet Count 435 K/mm3 (150-400); RDW Coefficient Variation 12.1 % (11.7-14.2); RDW Standard Deviation 38.8 fL (35.1-46.3); Red Blood Cell Count 4.46 M/mm3 (4.30-5.90); White Blood Cell Count 18.76 K/mm3 (4.00-11.30)
[2022-02-18 17:09] LABS: Albumin, Blood 2.6 g/dL (3.4-5.0); Albumin/Globulin Ratio 0.4 (0.8-1.8); Bilirubin, Total 0.6 mg/dL (0.1-1.0); Bun/Creatinine Ratio 21.2 (12.0-20.0); Calcium, Blood 9.9 mg/dL (8.5-10.1); Creatinine, Blood 0.76 mg/dL (0.60-1.20); Globulin, Blood 5.8 g/dL (2.2-4.0); Potassium, Blood 4.4 mmol/L (3.5-5.5); Total Protein, Blood 8.4 g/dL (6.4-8.2)
[2022-02-18] MEDS ORDERED: Prozac20 MG PO (17:43)
[2022-02-18] MEDS ORDERED: CLOP75 PO (17:43)
[2022-02-18] MEDS ORDERED: Avidoxy100 MG PO (17:50)
--- NOTE | 2022-02-19 04:57 | NUR ---
SHIFT SUMMARY: A/OX4, 1 PERSON ASSIST WITH AMBULATION OR STAND AND PIVOT. LEFT LEG ELEVATED ON PILLOW DUE TO SWELLING FROM DIABETIC ULCERS ON LEFT FOOT (PICTURES IN CHART. PT REPORTS SLIGHT DISCOMFORT BUT IS TOLERABLE NOT REQUIRING MEDICATION INTERVENTION. PT HAS FREQUENT URINATION, URGENCY AND SMALL AMOUNTS WITH EACH OUTPUT- REPORTS THIS IS BASELINE. NEW IV PLACED IN LEFT UPPER ARM DUE TO IV ANTIBIOTIC NON COMPATABILITY WITH IV FLUIDS. PATIENT CONTINUES TO CALL APPROPRIATELY- NO ATTEMPTS TO GET OUT OF BED AND AMBULATE WITHOUT ASSISTANCE. BED REMAINS IN LOW POSITION, CALL CACERES AND BELONGINGS IN REACH.
[2022-02-19 05:56] LABS: Hematocrit 36.5 % (37.0-53.0); Hemoglobin 12.1 g/dL (13.5-17.5); Mean Corpuscular HGB 28.7 pg (26.0-34.0); Mean Corpuscular HGB Conc 33.2 g/dL (31.5-36.5); Mean Corpuscular Volume 87 fL (80-100); Mean Platelet Volume 10.1 fL (9.1-12.4); Platelet Count 453 K/mm3 (150-400); RDW Coefficient Variation 12.1 % (11.7-14.2); RDW Standard Deviation 38.5 fL (35.1-46.3); Red Blood Cell Count 4.22 M/mm3 (4.30-5.90); White Blood Cell Count 15.26 K/mm3 (4.00-11.30)
[2022-02-19 06:29] LABS: Bun/Creatinine Ratio 17.4 (12.0-20.0); Calcium, Blood 9.2 mg/dL (8.5-10.1); Creatinine, Blood 0.63 mg/dL (0.60-1.20); Thyroid Stimulating Hormone 7.02 uIU/mL (0.360-4.800)
[2022-02-19 08:03] LABS: SARS-Cov-2 (COVID-19) Antigen Positive (NEGATIVE)
--- NOTE | 2022-02-19 13:02 | NUR ---
PATIENT WAS TRANSFERED DOWN FOR PROCEDURE AT [facility] NOON TODAY. AFTER THE PROCEDURE, HE WILL ENTER PCU #[id number]. HIS BELONGINGS HAVE ALREADY BEEN SENT TO PCU.
--- NOTE | 2022-02-19 16:44 | NUR ---
END OF SHIFT SUMMARY: PATIENT HAS BEEN RESTING SINCE TRANSFERRED FROM [facility]. PATIENT HAS A RIGHT GROIN SITE TO ACCESS LEFT LEG. DR. Zamarripa. PATIENT HAS BEEN SLIGHTLY HYPERTENSIVE SPOKE WITH HOSP. DR. GARCIA AND PRN HYDRALAZINE ORDERED WILL AWAIT NEXT BLOOD PRESSURE AND EVALUATE NEED FOR HTN MED. DENIES CHEST PAIN, MCKEON, SOB. PATIENT RESTING IN NO PAIN, INCONTINENT WHEN SLEEPING OF URINE DURING THIS SHIFT. SHALLOW BREATHES, CPAP ORDER FOR RT, PATIENT DOES NOT LIKE THE NC IN WHILE SLEEPING SPO2 > 88 PERCENT, WHILE SLEEPING. PATIENT WHEN AWAKE ON RA 94%. PATIENT HAS BEEN ALERT AND ORIENTED, FOLLOWING COMMANDS APPROPRIATELY. PATIENT HAD HEMOSTASIS ACHIEVED AT 1325 AND WILL NEED TO BE FLAT AND REACCESSED 4 HOURS AFTER. PATIENT CBG ON ARRIVAL 202 HELD FOOD DUE TO SEDATION, HE IS STILL DROWSY AT THIS TIME. WILL CONTINUE TO MONITOR AT THIS TIME, NO CONCERNS, NO SIGNS OF ACUTE DISTRESS, RIGHT FOOT ACCESSED MULITPLE TIMES SINCE ARRIVAL AND PULSES ARE PALPABLE TO TOUCH AND DOPPLER, FOOT IS STILL PINK AND WARM TO TOUCH. SITE IS CDI NO MORE DRAINAGE SINCE ARRIVAL.
[2022-02-20 05:07] LABS: BASOPHILS ABSOLUTE AUTO 0.04 K/mm3 (0.00-0.23); BASOPHILS PERCENT AUTO 0 % (0-2); EOSINOPHILS ABSOLUTE AUTO 0.15 K/mm3 (0.00-0.68); EOSINOPHILS PERCENT AUTO 1 % (0-6); Hematocrit 37.4 % (37.0-53.0); Hemoglobin 12.2 g/dL (13.5-17.5); IMMATURE GRAN ABSOLUTE AUTO 0.08 K/mm3 (0.00-0.10); IMMATURE GRAN PERCENT AUTO 1 % (0-1); LYMPHOCYTES ABSOLUTE AUTO 1.71 K/mm3 (0.84-5.20); LYMPHOCYTES PERCENT AUTO 12 % (21-46); MONOCYTES ABSOLUTE AUTO 1.09 K/mm3 (0.16-1.47); MONOCYTES PERCENT AUTO 7 % (4-13); Mean Corpuscular HGB 28.6 pg (26.0-34.0); Mean Corpuscular HGB Conc 32.6 g/dL (31.5-36.5); Mean Corpuscular Volume 88 fL (80-100); Mean Platelet Volume 9.9 fL (9.1-12.4); NEUTROPHILS ABSOLUTE AUTO 11.69 K/mm3 (1.96-9.15); NEUTROPHILS PERCENT AUTO 79 % (41-73); Platelet Count 490 K/mm3 (150-400); RDW Coefficient Variation 12.1 % (11.7-14.2); Red Blood Cell Count 4.26 M/mm3 (4.30-5.90); White Blood Cell Count 14.76 K/mm3 (4.00-11.30)
--- NOTE | 2022-02-20 06:19 | NUR ---
SHIFT SUMMARY ASSUMED CARE OF PT AT 1900. PT IS A/OX4 BUT VERY LETHARGIC AND EASILY AWAKENED. HEART SOUNDS REGULAR. TELE SHOWS SINUS. LUNG SOUNDS CLEAR. PT WAS RA T/O THE NIGHT. PT WAS INCONTIENT/ CONTINENT DURING THE NIGHT. PT R GROIN SITE SOFT AND NONTENDER. PT L FOOT HAS VERY FAINT PEDL PULSE. WOUND OPEN TO AIR. PT HAD NO NEW COMPLAINTS. N/T IN EXTREMITIES IS NORMAL FOR HIM PER PT. PT HAD NO NEW COMPLAINTS.
--- NOTE | 2022-02-20 18:18 | NUR ---
END OF SHIFT SUMMARY: CHANGES: PATIENT SEEN BY PODIATRY, PATIENT WENT TO OR THIS EVENING, PARTIAL REMOVAL OF LEFT FOOT PLEASE SEE OP NOTE. CURRENLTY WRAPPED WITH XEROFORM GAUZE AND SHERRY BANDAGE, HE RECIEVED 150 OF PROP AND 50 OF FENTANYL. ADDITIONALLY, LEFT FOTT IS BLOCKED PATIENT IS CURRENLTY RESTING IN ACUTE SIGN OF DISTRESS. FLAGYL AND TAZICEF NON WEIGHT BEARING ON THAT FOOT. PATIENT IS SLEEPING HAS BEEN UPDATED. INFUSING: LR AT 50. BOTH IV'S FLUSH WELL, CURRENLTY RUNNING LR IN MANAS. PATIENT HAS NEW ANTIBIOTICS. FROM PREVIOUS SHIFT. INCONTINENT MOST OF THE DAY WAS ABLE TO USE THE URINAL A COUPLE OF TIMES. HAS BEEN SINUS RHYTHM NO CHEST PAIN PRESSURE, OR SOB. PATIENT ALSO RESTED MOST OF THE DAY DID NOT NEED ANY COVERAGE FROM THIS RN. SKIPPED LUNCH PATIENT WAS SO SLEEPY. AND HODLING DINNER UNTIL PATIENT IS MORE ALERT AND ORIENTED AFTER SURGERY, TRAY IS IN PANTRY. WILL CONTINUE TO MONITOR UNTIL SHIFT CHANGE.
[2022-02-21 04:42] LABS: BASOPHILS ABSOLUTE AUTO 0.01 K/mm3 (0.00-0.23); BASOPHILS PERCENT AUTO 0 % (0-2); EOSINOPHILS ABSOLUTE AUTO 0.02 K/mm3 (0.00-0.68); EOSINOPHILS PERCENT AUTO 0 % (0-6); Hematocrit 38.2 % (37.0-53.0); Hemoglobin 12.1 g/dL (13.5-17.5); IMMATURE GRAN ABSOLUTE AUTO 0.11 K/mm3 (0.00-0.10); IMMATURE GRAN PERCENT AUTO 1 % (0-1); LYMPHOCYTES PERCENT AUTO 11 % (21-46); MONOCYTES ABSOLUTE AUTO 0.72 K/mm3 (0.16-1.47); MONOCYTES PERCENT AUTO 5 % (4-13); Mean Corpuscular HGB 28.3 pg (26.0-34.0); Mean Corpuscular HGB Conc 31.7 g/dL (31.5-36.5); Mean Corpuscular Volume 89 fL (80-100); Mean Platelet Volume 10.1 fL (9.1-12.4); NEUTROPHILS ABSOLUTE AUTO 10.97 K/mm3 (1.96-9.15); NEUTROPHILS PERCENT AUTO 82 % (41-73); Platelet Count 524 K/mm3 (150-400); RDW Coefficient Variation 12.2 % (11.7-14.2); RDW Standard Deviation 39.8 fL (35.1-46.3); Red Blood Cell Count 4.28 M/mm3 (4.30-5.90); White Blood Cell Count 13.33 K/mm3 (4.00-11.30)
[2022-02-21 04:54] LABS: International Normalized Ratio 1.16; Prothrombin Time Results 12.1 Sec (9.7-11.5)
[2022-02-21 05:03] LABS: CPK Creatine Kinase 54 U/L (39-308)
[2022-02-21 05:48] LABS: Alanine Aminotransfer (ALT/SGP 24 U/L (12-78); Albumin, Blood 2.1 g/dL (3.4-5.0); Albumin/Globulin Ratio 0.4 (0.8-1.8); Alk Phos 114 U/L (50-136); Anion Gap 5 mmol/L (6-16); Aspartate Aminotrans (AST/SGOT 23 U/L (12-37); Bilirubin, Total 0.4 mg/dL (0.1-1.0); Blood Urea Nitrogen 11 mg/dL (8-24); Bun/Creatinine Ratio 14.3 (12.0-20.0); CO2, Blood 30 mmol/L (21-32); Calcium, Blood 8.9 mg/dL (8.5-10.1); Chloride, Blood 102 mmol/L (98-108); Creatine Kinase MB <1.0 ng/mL (0.0-3.6); Creatine Kinase MB Index Unable to Calculate (0.0-4.0); Creatinine, Blood 0.77 mg/dL (0.60-1.20); Globulin, Blood 5.4 g/dL (2.2-4.0); Glomerular Filtration Rate 101 (60-); Glucose, Blood 199 mg/dL (70-99); Potassium, Blood 4.2 mmol/L (3.5-5.5); Sodium, Blood 137 mmol/L (136-145); Total Protein, Blood 7.5 g/dL (6.4-8.2)
--- NOTE | 2022-02-21 06:25 | NUR ---
SHIFT SUMMARY PT REMAINS A&O X4, VSS, 3 L VIA NC, PT REFUSES BIPAP SO O2 WAS LEFT IN PLACE WHILE SLEEPING. PT ENC TO KEEP LEFT LOWER EXTREMITY ELEVATED ON A PILLOW, DRSG REMAINS C/D/I, PAIN WNL AND MEDICATED PER EMAR, PT STATES HE HAS MINOR "TINGLING & ITCHING TO HIS TOES". PT ENC TO ASSIST IN BED MOBILITY BUT EDUCATED ON HOW TO NOT USE THE SURGICAL FOOT. PT IS TOLERATING PO INTAKE, URINE OUTPUT WNL. CALL LIGHT IN REACH WCTM & REPORT TO RN
--- NOTE | 2022-02-21 16:54 | NUR ---
SHIFT SUMMARY PT A/O X4 AND COOPERATIVE OF CARE. VSS THROUGHOUT SHIFT WITH O2 SATS >91% ON RA THROUGHOUT SHIFT. NO REPORT OF CHEST PAIN/PRESSURE THROUGHOUT SHIFT. NO REPORT OF SOB/DYSPNEA THROUGHOUT SHIFT. PT SEEN BY PHYSICAL THERAPYMONTY, 2 PERSON ASSIST. PT ABLE TO SIT UP AT EDGE OF BED ON HIS OWN, REMINDERS OF NO WEIGHT BEARING ON LEFT FOOT. PEDIATRIST SEEN PT TODAY, CHANGED DRESSING OF LEFT FOOT, DILAUDID ORDERED FOR PAIN, SEE EMAR. PT CALLED APPROPIATE DURING SHIFT. REPORT GIVEN TO HASEEB KERN AROUND 1630.
--- NOTE | 2022-02-22 01:00 | NUR ---
OXYGEN PT PLACED ON 3L O2 VIA NC FOR SPO2 <88%, PT STATES HE HAS NOT BEEN COMPLIANT WITH HOME CPAP BECAUSE HE "LOST IT", PT STATES HE WILL ATTEMPT HOSPITAL CPAP, RT NOTIFIED AT THIS TIME TO ASSIT WITH SET UP, SPO2 >90% ON 3L.
[2022-02-22 06:30] LABS: BASOPHILS ABSOLUTE AUTO 0.04 K/mm3 (0.00-0.23); BASOPHILS PERCENT AUTO 0 % (0-2); EOSINOPHILS ABSOLUTE AUTO 0.25 K/mm3 (0.00-0.68); EOSINOPHILS PERCENT AUTO 2 % (0-6); Hematocrit 36.7 % (37.0-53.0); Hemoglobin 11.6 g/dL (13.5-17.5); IMMATURE GRAN PERCENT AUTO 1 % (0-1); LYMPHOCYTES ABSOLUTE AUTO 2.46 K/mm3 (0.84-5.20); LYMPHOCYTES PERCENT AUTO 21 % (21-46); MONOCYTES ABSOLUTE AUTO 0.91 K/mm3 (0.16-1.47); MONOCYTES PERCENT AUTO 8 % (4-13); Mean Corpuscular HGB 28.4 pg (26.0-34.0); Mean Corpuscular HGB Conc 31.6 g/dL (31.5-36.5); Mean Corpuscular Volume 90 fL (80-100); NEUTROPHILS ABSOLUTE AUTO 8.13 K/mm3 (1.96-9.15); NEUTROPHILS PERCENT AUTO 68 % (41-73); Platelet Count 498 K/mm3 (150-400); RDW Coefficient Variation 12.2 % (11.7-14.2); RDW Standard Deviation 40.5 fL (35.1-46.3); Red Blood Cell Count 4.08 M/mm3 (4.30-5.90); White Blood Cell Count 11.89 K/mm3 (4.00-11.30)
--- NOTE | 2022-02-22 06:48 | NUR ---
SHIFT SUMMARY PT HAS BEEN RESTING COMFORTABLY THROUGH THE NIGHT, VSS, PAIN MNGD WITH PO MEDS, PT ENC TO KEEP LEFT LEG ELEVATED ON PILLOWS, DRSG REMAINS C/D/I. INCENTIVE SPIROMETER ENC, PT PLACED ON CPAP WHILE SLEEPING TO KEEP SPO2 >90%, PT STATED HE HAD LOST HIS HOME MACHINE. PT IS VOIDING WNL & TOLERATING PO INTAKE, ABX INFUSED PER EMAR, NO OTHER ACUTE CHANGES NOTED. CALL LIGHT IN REACH WCTM & REPORT TO DAY RN.
[2022-02-22 06:55] LABS: Bun/Creatinine Ratio 17.2 (12.0-20.0); C-REACTIVE PROTEIN, EXT RANGE 6.56 mg/dL (0.000-0.300); Calcium, Blood 8.6 mg/dL (8.5-10.1); Creatinine, Blood 0.7 mg/dL (0.60-1.20); Potassium, Blood 3.4 mmol/L (3.5-5.5)
--- NOTE | 2022-02-22 16:20 | NUR ---
END OF SHIFT: CARMINA HAS BEEN UNCHAGED FROM ASSUMPTION OF CARE. PATIENT REQUIRES 2L VIA NC WHILE ASLEEP AND NOT ON CPAP. PATIENT TOLERATED THE CPAP DURING THE NIGHT, HAS BEEN REFUSING DURING THIS DAY SHIFT, WHILE NAPPING, BUT IS AGREEABLE TO WEARING THE O2. PATIENT HAS BEEN ALERT AND ORIENTED, BUT VERY SLIGHTLY WITHDRAWN, IMPROVED MOOD WITH STOPPING BY. PATIENT HAS NOT NEEDED COVERAGE FOR CBG, INFORMED PATIENT THAT WE NEED ATLEAST A MINIMUM OF 2 HOURS OF FASTING FOR ACCURATE CBG. PATIENT AWARE, WILL PREFORM CBG AT 1800. ZOSYN WAS CHANGED BY PHARMACY TO QID AND FAST RATE, NOW THAT HE HAS BEEN CHANGED TO SURGICAL STATUS. PATIENT HAS BEEN ABLE TO TRANSFER VIA PIVOT AND NONWEIGHTBEARING ON HIS LEFT FOOT. PATIENT TOLERATED WELL WAS IN THE CHAIR FOR LUNCH AND RETURNED TO BED, DUE TO NEED OF ELEVATING AFFECTED LIMB AND PATIENT PREFERENCE. CAP REFILL ON LEFT FOOOT, AND PULSES FELT THROUGHOUT LOWER EXTREMITY NO SIGN SOF OCCLUSION WILL CONTINUE TO MONITOR UNTIL SHIFT CHANGE.
[2022-02-23 04:36] LABS: BASOPHILS ABSOLUTE AUTO 0.04 K/mm3 (0.00-0.23); BASOPHILS PERCENT AUTO 0 % (0-2); EOSINOPHILS ABSOLUTE AUTO 0.27 K/mm3 (0.00-0.68); EOSINOPHILS PERCENT AUTO 2 % (0-6); Hematocrit 37.3 % (37.0-53.0); Hemoglobin 11.8 g/dL (13.5-17.5); IMMATURE GRAN ABSOLUTE AUTO 0.15 K/mm3 (0.00-0.10); IMMATURE GRAN PERCENT AUTO 1 % (0-1); LYMPHOCYTES ABSOLUTE AUTO 2.44 K/mm3 (0.84-5.20); LYMPHOCYTES PERCENT AUTO 20 % (21-46); MONOCYTES ABSOLUTE AUTO 0.78 K/mm3 (0.16-1.47); MONOCYTES PERCENT AUTO 6 % (4-13); Mean Corpuscular HGB 28.5 pg (26.0-34.0); Mean Corpuscular HGB Conc 31.6 g/dL (31.5-36.5); Mean Corpuscular Volume 90 fL (80-100); Mean Platelet Volume 9.7 fL (9.1-12.4); NEUTROPHILS ABSOLUTE AUTO 8.62 K/mm3 (1.96-9.15); NEUTROPHILS PERCENT AUTO 70 % (41-73); Platelet Count 617 K/mm3 (150-400); RDW Coefficient Variation 12.2 % (11.7-14.2); RDW Standard Deviation 40.4 fL (35.1-46.3); Red Blood Cell Count 4.14 M/mm3 (4.30-5.90)
[2022-02-23 04:50] LABS: International Normalized Ratio 1.09; Prothrombin Time Results 11.4 Sec (9.7-11.5)
[2022-02-23 04:53] LABS: Albumin, Blood 2.1 g/dL (3.4-5.0); Albumin/Globulin Ratio 0.4 (0.8-1.8); Bilirubin, Total 0.2 mg/dL (0.1-1.0); Bun/Creatinine Ratio 13.7 (12.0-20.0); C-REACTIVE PROTEIN, EXT RANGE 5.71 mg/dL (0.000-0.300); Calcium, Blood 8.7 mg/dL (8.5-10.1); Creatinine, Blood 0.8 mg/dL (0.60-1.20); Globulin, Blood 5.5 g/dL (2.2-4.0); Magnesium, Blood 1.6 mg/dL (1.6-2.4); Phosphorus, Blood 3.3 mg/dL (2.5-4.9); Potassium, Blood 3.6 mmol/L (3.5-5.5); Total Protein, Blood 7.6 g/dL (6.4-8.2)
--- NOTE | 2022-02-23 06:28 | NUR ---
SOFT IRON INSPECTOR SUMMARY PT IS ALERT AND ORIENTED COMMUNICATING APPRORPIATELY W STAFF THIS SHIFT. PT HAS DENIED ANY PAIN OR NAUSEA THIS SHIFT. O2 SATS >90% ON 2L NC HE REFUSED TO WEAR HIS CPAP THIS SHIFT.BP WNL AND STABLE THIS SHIFT. PT WAS ABLE TO SLEEP FOR MOST OF THE NIGHT W NO EVENTS THIS SHIFT. WILL REPORT TO ONCOMING RN.
--- NOTE | 2022-02-23 13:11 | NUR ---
PODIATRY AND HOSPITALIST: NO CONCERNS EXPRESSED FROM EITHER PROVIDER, HOWEVER, DR. RHODES ENDORSED TO SEE PATIENT AGAIN ON WEDNESDAY, OR IF HE IS DISCHARGED, TO SEE PATIENT WEDNESDAY. PATIENT AWARE, WILL PASS ONTO NIGHT RN. IF NOT IN PODIATRY NOTE. DR. LARA, HAD NO ACUTE ISSUES AT THIS TIME.
--- NOTE | 2022-02-23 16:16 | NUR ---
END OF SHIFT SUMMARY: PATIENT HAS BEEN AFEBRILE ALERT AND ORIENTED, WAS SEEN BY PODIATRY AND HOSPITALIST PLEASE SEE NOTE, NO CHANGE IN CARE. PATIENT HAS BEEN PLESANT, COOPERATIVE WITH CARE, HAS BEEN EXPERIECING CONSISTENT HTN AND HAS NEEDED TREATMENT WITH HYDRALAZINE THIS SHIFT, HOSPITALIST INFORMED. NO NEW ORDERS. PATIENT HAS BEEN CHEST PAIN FREE NO SOB, OR PRESSURE. PATIENT ON RA WHILE AWAKE, 2L VIA NC WHILE SLEEPING, HAS BEEN REFUSING THE CPAP. PATIENT EDUCATED MULTIPLE TIMES, ABOUT IMPORTANCE, WILL CONSIDER. PATIENT HAS BEEN MANAGED FOR PAIN PER SEP AND ROTATING BETWEEN PAIN MED AND TYLENOL. PATIENT TOLERATES WELL, ATTEMPTED TO WORK WITH PHYSICAL THERAPY BUT DUE TO RECENT ADMINISTRATION OF HYDRALAZINE PATIENT FELT SLIGHTLY DIZZY DURING ATTEMPT TO STNAD. PATIENT PIVOT TRANSFERRED FOR THIS RABBLER YESTERDAY. PATIENT ATE AT THE SIDE OF THE BED, EDUCATED ON INCENTIVE SPIROMETRY AND IMPORTANCE OF DEEP BREATHING TECHNIQUES. PATIENT IS NON WEIGHT BEARING ON THAT FOOT, GOOD CONCEPT. PATIENT IS OCCASSIONALLY INCONTINENT/ MAKES A MESS, URINAL IN THE BED MOST OF THE DAY RECIEVED A BEDBATH. WILL CONTINUE TO MONITOR UNTIL SHIFT CHANGE. NO ACUTE SIGNS OF DISTRESS.
--- NOTE | 2022-02-23 19:57 | NUR ---
ARRIVAL/SHIFT SUMMARY PT ARRIVED JUST AFTER 1800 FROM PCU VIA WC, TRANSFERED TO BSC UPON ARRIVAL AND INITIAL VS TAKEN WHEN FINISHED AND TRANSFERRED TO BED. PT STABLE AT TIME OF ARRIVAL AND AT TIME OF REPORT TO NOC RN. PT DENIES ANY NEEDS AT THIS TIME, ORIENTED TO ROOM. REPORT GIVEN TO NOC RN.
--- NOTE | 2022-02-24 04:16 | NUR ---
SUMMARY NO NEW ISSUES NOTED. PT DENIES PAIN AND IS IN GOOD SPIRITS. PT HAS SLEPT DURING SHIFT WITHOUT ISSUE. CALL LIGHT IN REACH
[2022-02-24 05:57] LABS: Hemoglobin 12.1 g/dL (13.5-17.5); Mean Corpuscular HGB Conc 32.7 g/dL (31.5-36.5); Mean Corpuscular Volume 89 fL (80-100); Mean Platelet Volume 9.6 fL (9.1-12.4); Platelet Count 636 K/mm3 (150-400); RDW Coefficient Variation 12.3 % (11.7-14.2); RDW Standard Deviation 40.2 fL (35.1-46.3); Red Blood Cell Count 4.17 M/mm3 (4.30-5.90); White Blood Cell Count 13.93 K/mm3 (4.00-11.30)
[2022-02-24 06:09] LABS: Albumin, Blood 2.1 g/dL (3.4-5.0); Anion Gap 4 mmol/L (6-16); Blood Urea Nitrogen 7 mg/dL (8-24); Bun/Creatinine Ratio 9.9 (12.0-20.0); CO2, Blood 33 mmol/L (21-32); Calcium, Blood 9.1 mg/dL (8.5-10.1); Chloride, Blood 103 mmol/L (98-108); Glomerular Filtration Rate 104 (60-); Glucose, Blood 89 mg/dL (70-99); Phosphorus, Blood 3.2 mg/dL (2.5-4.9); Potassium, Blood 3.5 mmol/L (3.5-5.5); Sodium, Blood 140 mmol/L (136-145)
--- NOTE | 2022-02-24 16:14 | NUR ---
SHIFT SUMMARY POD4 L TMA c NWB STATUS, A/OX4, VSS, TOLERATING PO, PAIN WELL MANAGED. PT WORKED WITH PHYSICAL THERAPY TODAY, SPENT A FEW HOURS UP TO THE CHAIR BUT REPORTED IT TO BE UNCOMFORTABLE TO STAY IN MUCH LONGER, DOES WELL WITH TRANSFERS AND KNOWS ABOUT HIS WEIGHT BEARING STATUS. CALLS APPROPRIATELY AND ABLE TO MAKE NEEDS KNOWN. NO ACUTE EVENTS THIS SHIFT, CALL LIGHT IN REACH, WILL CTM AND REPORT TO ONCOMING ARABELLA RN.
[2022-02-25 05:08] LABS: Hematocrit 36.9 % (37.0-53.0); Hemoglobin 11.7 g/dL (13.5-17.5); Mean Corpuscular HGB 28.4 pg (26.0-34.0); Mean Corpuscular HGB Conc 31.7 g/dL (31.5-36.5); Mean Corpuscular Volume 90 fL (80-100); Mean Platelet Volume 9.5 fL (9.1-12.4); Platelet Count 607 K/mm3 (150-400); RDW Coefficient Variation 12.5 % (11.7-14.2); RDW Standard Deviation 40.5 fL (35.1-46.3); Red Blood Cell Count 4.12 M/mm3 (4.30-5.90); White Blood Cell Count 13.89 K/mm3 (4.00-11.30)
[2022-02-25 05:31] LABS: Albumin, Blood 2.1 g/dL (3.4-5.0); Anion Gap 4 mmol/L (6-16); Blood Urea Nitrogen 8 mg/dL (8-24); Bun/Creatinine Ratio 11.6 (12.0-20.0); CO2, Blood 31 mmol/L (21-32); Calcium, Blood 9.2 mg/dL (8.5-10.1); Chloride, Blood 104 mmol/L (98-108); Creatinine, Blood 0.69 mg/dL (0.60-1.20); Glomerular Filtration Rate 105 (60-); Glucose, Blood 155 mg/dL (70-99); Phosphorus, Blood 3.4 mg/dL (2.5-4.9); Potassium, Blood 3.7 mmol/L (3.5-5.5); Sodium, Blood 139 mmol/L (136-145)
--- NOTE | 2022-02-25 05:32 | NUR ---
SHIFT SUMMARY: PT SLEPT WELL T/O THE NIGHT. PAIN WAS WELL MANAGED WITH ORDERS PER EMAR AND UNINTERUPTED REST. BANDAGE AND WRAP ON THE L FOOT IS CLEAN, DRY, AND INTACT. PT USES URINAL AT BEDSIDE. DRINKING AND VOIDING. NO NEW CHANGES.
--- NOTE | 2022-02-25 18:35 | NUR ---
SHIFT SUMMARY PT POD #5 FOR TOE AMPUTATION ON THE LEFT FOOT. PT IS NON-WEIGHT BEARING ON THAT FOOT AND DOES NOT ADHERE TO PRECAUTIONS WELL. PT AGREEABLE TO GO TO SNF AND WILL POSSIBLY DISCHARGE TO [facility] ON WEDNESDAY. VSS. WILL REPORT TO ARABELLA KERN.
[2022-02-26 04:16] LABS: Hemoglobin 11.6 g/dL (13.5-17.5); Mean Corpuscular HGB 28.9 pg (26.0-34.0); Mean Corpuscular HGB Conc 32.2 g/dL (31.5-36.5); Mean Corpuscular Volume 90 fL (80-100); Mean Platelet Volume 9.5 fL (9.1-12.4); Platelet Count 560 K/mm3 (150-400); RDW Coefficient Variation 12.5 % (11.7-14.2); RDW Standard Deviation 41.4 fL (35.1-46.3); Red Blood Cell Count 4.01 M/mm3 (4.30-5.90); White Blood Cell Count 13.69 K/mm3 (4.00-11.30)
--- NOTE | 2022-02-26 06:35 | NUR ---
CUT OFF OPERATOR SCORER SUMMARY NO ACUTE CHANGES THIS SHIFT. PT AAOX4 AND PLEASANT. ENCOURAGED PT TO GET UP TO BSC WHICH HE HAS DONE SEVERAL TIMES TONIGHT. NO ADDITIONAL DRAINAGE NOTED TO L FOOT DRESSING. MEDICATED FOR PAIN X1 EARLY THIS AM WITH MIREYA 5 MG. GOOD PAIN CONTROL. VSS, WILL CONTINUE TO MONITOR.
[2022-02-26 13:44] LABS: Influenza A, PCR NEGATIVE (NEGATIVE); Influenza B, PCR NEGATIVE (NEGATIVE); Resp Syncytial Virus, PCR NEGATIVE (NEGATIVE)
[2022-02-26 13:49] LABS: SARS-Cov-2 (COVID-19) PCR, MMC POSITIVE (NEGATIVE)
--- NOTE | 2022-02-26 16:57 | NUR ---
SUMMARY NO ACUTE CHANGES T/O SHIFT. PT WORKED W/THERAPY TODAY. HAS DIFFICULTY MAINTAINING NWB STATUS TO LLE, LIGHTLY PLACED HEEL ON FLOOR FOR BALANCE. NO BOWEL MOVEMENTS THUS FAR THIS SHIFT. VOIDING W/O DIFFICULTY. MEDICATED ONCE THIS SHIFT FOR LLE PAIN. USES CALL LIGHT APPROPRIATELY.
--- NOTE | 2022-02-27 05:53 | NUR ---
DENTAL HYGIENE ADMINISTRATIVE ASSISTANT SUMMARY NO ACUTE CHANGES THIS SHIFT. PT AAOX4 AND PLEASANT. DRESSING TO L FOOT REMAINS INTACT WITH NO CHANGES NOTED. PT DENIES ANY NEW N/T TO THE AREA ASIDE FROM HIS CHRONIC NEUROPATHY. PT TO HOPEFULLY BE SEEN BY PODIATRY LATER TODAY. VSS, WILL CONTINUE TO MONITOR.
--- NOTE | 2022-02-27 17:21 | NUR ---
SUMMARY NO ACUTE CHANGES T/O SHIFT. DR RHODES IN TODAY AND CHANGED DRESSING TO PT'S L FOOT. NEW DRESSING TO STAY IN PLACE UNTIL FOLLOW UP IN 1 WEEK. KEEP CDI. PT HAD ONE SMALL INCONTINENT BM. MEDICATED ONCE DURING SHIFT FOR PAIN. CALL LIT WITHIN REACH.
[2022-02-28 04:44] LABS: Hematocrit 35.9 % (37.0-53.0); Hemoglobin 11.4 g/dL (13.5-17.5); Mean Corpuscular HGB 28.6 pg (26.0-34.0); Mean Corpuscular HGB Conc 31.8 g/dL (31.5-36.5); Mean Corpuscular Volume 90 fL (80-100); Mean Platelet Volume 9.8 fL (9.1-12.4); Platelet Count 500 K/mm3 (150-400); RDW Coefficient Variation 12.6 % (11.7-14.2); RDW Standard Deviation 41.3 fL (35.1-46.3); Red Blood Cell Count 3.98 M/mm3 (4.30-5.90); White Blood Cell Count 11.18 K/mm3 (4.00-11.30)
--- NOTE | 2022-02-28 06:02 | NUR ---
PETROLEUM ANALYST SUMMARY NO ACUTE CHANGES THIS SHIFT. PT AAOX4 AND PLEASANT. PT ABLE TO PLACE PARTIAL WEIGHT ON HEEL WHEN PIVOT TRANSFERING TO BSC PER DR RHODES. MEDICATED FOR PAIN X2 WITH OXYCODONE. NEW DRESSING ON L FOOT C/D/I. PLAN FOR DISCHARGE TO SNF ON WEDNESDAY. VSS, LUCAS.
--- NOTE | 2022-02-28 16:25 | NUR ---
SHIFT SUMMARY POD 8 PARTIAL AMPUTATION OF L FOOT. PT WORKING WITH THERAPY TODAY, REPORTS FEELING STRONGER TODAY. PAIN WELL CONTROLLED WITH PO MEDICATIONS. REINFORCED DRESSING TO LEFT FOOT PT STRUGGLING TO FOLLOW PRECAUTIONS WHEN MOVING FROM SHOWER. SOME SPOTTING TO SHERRY WRAP ON LEFT FOOT. PT TOLERATING PO WELL.
--- NOTE | 2022-03-01 05:17 | NUR ---
SHIFT SUMMARY: PT VERY PLEASANT AND COOPERATIVE. SLEPT WELL T/O THE NIGHT. HAD MINIMAL PAIN EARLY IN THE SHIFT THAT WAS WELL MANAGED WITH UNINTERRUPTED REST AND ORDERS PER EMAR. SHERRY WRAP AND GAUZE ON L FOOT IS CLEAN, DRY, AND INTACT. PT IS STILL USING THE URINAL AT BEDSIDE. HE WAS ABLE TO STAND WITH THE WALKER/GAIT BELT AT BEDSIDE FOR BEDDING AND BRIEF CHANGE. EATING, DRINKING, AND URINATING WELL. CALL LIGHT IS WITHIN REACH. NO NEW CHANGES AT THIS TIME.
--- NOTE | 2022-03-01 16:38 | NUR ---
SHIFT SUMMARY POD 9 PART AMPUTATION LEFT FOOT DRESSING REMAINS CDI. PT AA0X4 DURING SHIFT. REPORTS PAIN WELL CONTROLLED PER EMAR. TOLERATING PO WELL. VOIDING WELL. PT EAGER TO DISCHARGE AND PLAN IS FOR DISCHARGE TOMORROW.
--- NOTE | 2022-03-02 05:26 | NUR ---
SHIFT SUMMARY: PT SLEPT COMFORTABLY T/O THE NIGHT. PAIN WAS WELL MANAGED PER EMAR ORDERS. BANDAGE IS C/D/I ON L FOOT. PT USING URINAL AND AMBULATING TO BATHROOM W/ FWW. EATING, DRINKING, VOIDING. PT WAS REPOSITIONED TO RELIEVE PRESSURE ON COCCYX AND WAS RECEPTIVE TO EDUCATION. CALLS APPROPORATELY. PLAN FOR DISCHARGE TODAY TO SNF.
--- NOTE | 2022-03-02 14:45 | NUR ---
TRANSFER SUMMARY PT A&OX4, VSS/RA, PAIN MANAGED WELL WITH OXY 5 MG PRN (GIVEN 1X TODAY), NINFA PO, VOIDING/BMS, AMB TO BRP W/HEEL/NWB, UP TO CHAIR FOR MEALS. REPORT CALLED TO [facility]. IV DC'D. LEFT VIA WC WITH TRANSPORT WITH ALL PERSONAL POSSESSIONS. PACKET GIVEN TO PLANE RUNNER WITH NARC SCRIPT INSIDE.
[2022-03-15] MEDS ORDERED: MIRALAX1713 PO (06:28)
[2022-03-15] MEDS ORDERED: LISI5 PO (07:39)
[2022-03-15] MEDS ORDERED: MULVITA PO (07:40)
[2022-03-15] MEDS ORDERED: VITAMIN D5000 UNIT PO (07:45)
[2022-03-16] MEDS ORDERED: PROBIOTIC1 EA13 PO (16:10)
[2022-03-16] MEDS ORDERED: SULTRIDS PO (16:11)
== END 2022-03-02 14:42 | DRG 239 ==
LOC: ER 12:15 → SURS 18:40 → PCU 18:40 → MEDS 18:40 → PCU 02-19 12:00 → SURS 02-23 18:38
PROVIDERS: Emergency Medicine; Family Medicine; Internal Medicine; ADMIT Internal Medicine
PROC: 8E0ZXY6 Isolation (ICD-10-PCS; 2022-02-18)
PROC: 04FL3ZZ Fragmentation of Left Femoral Artery, Percutaneous Approach (ICD-10-PCS; principal; 2022-02-19)
PROC: 047Q3ZZ Dilation of Left Anterior Tibial Artery, Percutaneous Approach (ICD-10-PCS; 2022-02-19)
PROC: B41GYZZ Fluoroscopy of Left Lower Extremity Arteries using Other Contrast (ICD-10-PCS; 2022-02-19)
PROC: 0Y6N0Z9 Detachment at Left Foot, Partial 1st Ray, Open Approach (ICD-10-PCS; 2022-02-20)
PROC: 0Y6N0ZF Detachment at Left Foot, Partial 5th Ray, Open Approach (ICD-10-PCS; 2022-02-20)
DX: E11.52 Type 2 diabetes mellitus with diabetic peripheral angiopathy with gangrene (principal); U07.1 COVID-19; K52.1 Toxic gastroenteritis and colitis; I25.110 Atherosclerotic heart disease of native coronary artery with unstable angina pectoris; M86.8X7 Other osteomyelitis, ankle and foot; I70.262 Atherosclerosis of native arteries of extremities with gangrene, left leg; E11.69 Type 2 diabetes mellitus with other specified complication; E11.51 Type 2 diabetes mellitus with diabetic peripheral angiopathy without gangrene; E11.40 Type 2 diabetes mellitus with diabetic neuropathy, unspecified; I10 Essential (primary) hypertension; E03.9 Hypothyroidism, unspecified; T36.0X5A Adverse effect of penicillins, initial encounter; Z79.01 Long term (current) use of anticoagulants; G47.33 Obstructive sleep apnea (adult) (pediatric); E11.319 Type 2 diabetes mellitus with unspecified diabetic retinopathy without macular edema; E78.5 Hyperlipidemia, unspecified; M19.90 Unspecified osteoarthritis, unspecified site; Z87.891 Personal history of nicotine dependence; Z88.8 Allergy status to other drugs, medicaments and biological substances; Z79.02 Long term (current) use of antithrombotics/antiplatelets; Z79.899 Other long term (current) drug therapy; Z79.4 Long term (current) use of insulin; I69.328 Other speech and language deficits following cerebral infarction; E66.01 Morbid (severe) obesity due to excess calories; I25.2 Old myocardial infarction; Z98.890 Other specified postprocedural states; Z68.38 Body mass index [BMI] 38.0-38.9, adult
CPT/HCPCS: 0241U; 36415; 37228; 73630; 75716; 75774; 76937; 80048; 80053; 80069; 82550; 82553; 82947; 83735; 84100; 84443; 85025; 85027; 85347; 85610; 85651; 86140; 86141; 87070; 87077; 87186; 87205; 87426; 88307; 88311; 93926; 94660; 94760; 94762; 96365; 96366; 97110; 97112; 97116; 97161; 97530; 99152; 99153; 99285-25; A9270; C1725; C1760; C1769; C1887; C1894; C9764; C9803; J0295; J0360; J0713; J1170; J1644; J1650; J1815; J2001; J2250; J2370; J2543; J2704; J2795; J3010; J3370; J7030; J7040; J7060; J7120; Q9967

== ENCOUNTER 2022-05-14 17:13 | Inpatient (IN) | payer BC, MEDICARE ==
[~2022-05-14] VITALS: Ht 172.7 cm; Wt 119.1 kg
[~2022-05-14 17:13] MED LIST changes: +Avidoxy100 MG PO; +MIRALAX1713 PO; +MULVITA PO; +PROBIOTIC1 EA13 PO; +Prozac20 MG PO; +SULTRIDS PO; +VITAMIN D5000 UNIT PO
[2022-05-14] MEDS ORDERED: Cleocin HCl150 MG PO (18:21)
[2022-05-14 19:36] LABS: BASOPHILS ABSOLUTE AUTO 0.04 K/mm3 (0.00-0.23); BASOPHILS PERCENT AUTO 0 % (0-2); EOSINOPHILS ABSOLUTE AUTO 0.23 K/mm3 (0.00-0.68); EOSINOPHILS PERCENT AUTO 2 % (0-6); Hematocrit 37.4 % (37.0-53.0); Hemoglobin 12.4 g/dL (13.5-17.5); IMMATURE GRAN ABSOLUTE AUTO 0.03 K/mm3 (0.00-0.10); IMMATURE GRAN PERCENT AUTO 0 % (0-1); LYMPHOCYTES ABSOLUTE AUTO 2.11 K/mm3 (0.84-5.20); LYMPHOCYTES PERCENT AUTO 22 % (21-46); MONOCYTES ABSOLUTE AUTO 0.82 K/mm3 (0.16-1.47); MONOCYTES PERCENT AUTO 9 % (4-13); Mean Corpuscular HGB 29.2 pg (26.0-34.0); Mean Corpuscular HGB Conc 33.2 g/dL (31.5-36.5); Mean Corpuscular Volume 88 fL (80-100); Mean Platelet Volume 10.1 fL (9.1-12.4); NEUTROPHILS PERCENT AUTO 66 % (41-73); Platelet Count 407 K/mm3 (150-400); RDW Coefficient Variation 14.6 % (11.7-14.2); RDW Standard Deviation 47.4 fL (35.1-46.3); Red Blood Cell Count 4.25 M/mm3 (4.30-5.90); White Blood Cell Count 9.53 K/mm3 (4.00-11.30)
[2022-05-14 19:56] LABS: Albumin/Globulin Ratio 0.5 (0.8-1.8); Bilirubin, Total 0.2 mg/dL (0.1-1.0); Bun/Creatinine Ratio 11.3 (12.0-20.0); Calcium, Blood 9.2 mg/dL (8.5-10.1); Creatinine, Blood 0.89 mg/dL (0.60-1.20); Globulin, Blood 5.5 g/dL (2.2-4.0); Potassium, Blood 3.9 mmol/L (3.5-5.5); Total Protein, Blood 8.5 g/dL (6.4-8.2)
[2022-05-14] MEDS ORDERED: CHLO25B PO (22:40)
[2022-05-14] MEDS ORDERED: MIRALAX17 GM PO (22:49)
[2022-05-14] MEDS ORDERED: LEVEMIR FL100 UNIT/2 SC (22:50)
[2022-05-14] MEDS ORDERED: OXYC5 PO (22:51)
[2022-05-14] MEDS ORDERED: FIASP 100100 UNIT/3 SC (22:54)
[2022-05-14] MEDS ORDERED: HUMALOG KW100 UNIT/1 SC (22:56)
[2022-05-14] MEDS ORDERED: MUPIROCIN1 G1 TOP (22:57)
[2022-05-14] MEDS ORDERED: FLUT.05NI (22:57)
[2022-05-14] MEDS ORDERED: SELENIUM SULFIDE TOP (23:00)
[2022-05-15 05:45] LABS: BASOPHILS ABSOLUTE AUTO 0.03 K/mm3 (0.00-0.23); BASOPHILS PERCENT AUTO 0 % (0-2); EOSINOPHILS PERCENT AUTO 2 % (0-6); Hematocrit 34.1 % (37.0-53.0); IMMATURE GRAN ABSOLUTE AUTO 0.02 K/mm3 (0.00-0.10); IMMATURE GRAN PERCENT AUTO 0 % (0-1); LYMPHOCYTES ABSOLUTE AUTO 1.84 K/mm3 (0.84-5.20); LYMPHOCYTES PERCENT AUTO 21 % (21-46); MONOCYTES ABSOLUTE AUTO 0.81 K/mm3 (0.16-1.47); MONOCYTES PERCENT AUTO 9 % (4-13); Mean Corpuscular HGB 28.6 pg (26.0-34.0); Mean Corpuscular HGB Conc 32.3 g/dL (31.5-36.5); Mean Corpuscular Volume 89 fL (80-100); Mean Platelet Volume 10.3 fL (9.1-12.4); NEUTROPHILS ABSOLUTE AUTO 5.86 K/mm3 (1.96-9.15); NEUTROPHILS PERCENT AUTO 67 % (41-73); Platelet Count 339 K/mm3 (150-400); RDW Coefficient Variation 14.6 % (11.7-14.2); Red Blood Cell Count 3.84 M/mm3 (4.30-5.90); White Blood Cell Count 8.76 K/mm3 (4.00-11.30)
[2022-05-15 06:03] LABS: International Normalized Ratio 1.04; Prothrombin Time Results 10.9 Sec (9.7-11.5)
--- NOTE | 2022-05-15 06:14 | NUR ---
SHIFT SUMMARY PT ADMITTED FOR LEFT FOOT WOUND- REPORT THAT PT WILL HAVE A BKA TODAY- NPO AT MIDNIGHT- CBG Q6, IV INFUSING NS AT 100, MEDICATED WITH FENTANYL FOR LEFT FOOT PAIN, POWERGLIDE IN LEFT UPPER ARM- PT A&O X 4- SBA TO BSC - USES URINAL
[2022-05-15 06:18] LABS: Bun/Creatinine Ratio 13.7 (12.0-20.0); Calcium, Blood 8.8 mg/dL (8.5-10.1); Creatinine, Blood 0.8 mg/dL (0.60-1.20)
[2022-05-15 07:18] LABS: Influenza A, PCR NEGATIVE (NEGATIVE); Influenza B, PCR NEGATIVE (NEGATIVE); Resp Syncytial Virus, PCR NEGATIVE (NEGATIVE); SARS-Cov-2 (COVID-19) PCR, MMC NEGATIVE (NEGATIVE)
--- NOTE | 2022-05-15 17:35 | NUR ---
SHIFT SUMMARY: PATIENT A&OX4. PLEASANT AND COOPERATIVE WITH CARE. USES CALL LIGHT APPROPRIATLEY AND ABLE TO ADVOCATE FOR HIS NEEDS. PATIENT HAS BEEN RESTING IN BED OFF AND ON T/O THE DAY. RECEIVED ALL SCHEDULED MEDS THIS SHIFT. RECEIVED ONE DOSE OF PRN FENTANYL FOR PAIN TO L FOOT 11/25. PATIENT REPORTS OF GREAT RELIEF PAIN DOWN TO 08/28. AROUND 1518 PATIENT BP TAKEN ON R ARM WAS 184/98, HR OF 91 BPM, L ARM WAS 169/78, HR OF [address] NOVOA HOSPITALIST. RECEIVED AN ORDER TO GIVE HYDRALAZINE 10 MG IV ONE TIME DOSE. AROUND 1633 BP TAKEN TO R ARM 144/74 WITH HR OF 84 BPM. PATIENT RECEIVED BS COVERAGE T/O SHIFT PER EMAR. RECEIVED CALL FROM DR. WEINER (ORTHO SURGEON) AROUND 1601. RECEIVED ORDER TO HAVE PATIENT NPO AFTER MN FOR POSSIBLE SURGERY TO L BKA TOMORROW 05/16/22 IN AM. POWERGLIDE TO L AC,INFUSING NS AT 100 MLS/HR. PATIENT IS INCONTINENCE/CONTINENCE VOID WEAR ATTENDS AND USES URINAL T/O SHIFT. SCD'S INPLACE TO BLE'S. BED IN LOWEST POSITION, LOCKED AND BED ALARM ON FOR SAFETY. CALL LIGHT, ICE WATER AND URINAL WITHIN REACH.
[2022-05-15 22:34] LABS: Vancomycin, Trough 12.5 ug/mL (5.0-10.0)
--- NOTE | 2022-05-16 05:16 | NUR ---
SHIFT SUMMARY PT NPO T/O NIGHT FOR SURGERY PLANNED THIS AM- NS @100 INFUSING TO POWERGLIDE IN LEFT UPPER ARM- VANCOMYCIN AND CEFEPIME INFUSED T/O NIGHT - PT IN NWB TO LEFT FOOT- PT A&OX4- MEDICATED WITH FENTANYL FOR LEFT FOOT PAIN
[2022-05-16 05:21] LABS: BASOPHILS ABSOLUTE AUTO 0.04 K/mm3 (0.00-0.23); BASOPHILS PERCENT AUTO 0 % (0-2); EOSINOPHILS ABSOLUTE AUTO 0.27 K/mm3 (0.00-0.68); EOSINOPHILS PERCENT AUTO 2 % (0-6); Hematocrit 37.2 % (37.0-53.0); Hemoglobin 11.7 g/dL (13.5-17.5); IMMATURE GRAN ABSOLUTE AUTO 0.03 K/mm3 (0.00-0.10); IMMATURE GRAN PERCENT AUTO 0 % (0-1); LYMPHOCYTES ABSOLUTE AUTO 1.98 K/mm3 (0.84-5.20); LYMPHOCYTES PERCENT AUTO 17 % (21-46); MONOCYTES ABSOLUTE AUTO 0.92 K/mm3 (0.16-1.47); MONOCYTES PERCENT AUTO 8 % (4-13); Mean Corpuscular HGB 28.3 pg (26.0-34.0); Mean Corpuscular HGB Conc 31.5 g/dL (31.5-36.5); Mean Corpuscular Volume 90 fL (80-100); Mean Platelet Volume 9.9 fL (9.1-12.4); NEUTROPHILS ABSOLUTE AUTO 8.15 K/mm3 (1.96-9.15); NEUTROPHILS PERCENT AUTO 71 % (41-73); Platelet Count 343 K/mm3 (150-400); RDW Coefficient Variation 14.6 % (11.7-14.2); Red Blood Cell Count 4.14 M/mm3 (4.30-5.90); White Blood Cell Count 11.39 K/mm3 (4.00-11.30)
[2022-05-16 05:46] LABS: Bun/Creatinine Ratio 16.4 (12.0-20.0); Creatinine, Blood 0.61 mg/dL (0.60-1.20)
--- NOTE | 2022-05-16 12:33 | NUR ---
PT TO OR AT 1220.
--- NOTE | 2022-05-16 18:00 | NUR ---
LATE ENTRY/RETURNED FROM OR 1605: PT RETURNED FROM OR VIA BED TRANSFER. PT HAD L BKA, DRESSING C/D/I WITH A HEMOVAC DRAIN INTACT & PATENT. SCANT AMOUNT OF SEROSANGUINOUS DRAINAGE NOTED IN DRAIN TUBE. POWERHOUSE OPERATOR GAVE BEDSIDE REPORT, REPORTING THAT FENTANYL GIVEN JUST PRIOR TO TRANSFER BACK TO ROOM. PT DROWSY THOUGH AROUSABLE, ON 2 L's O2 VIA N/C, O2 SATS >90%. POWERGLIDE IV IN L UPPER ARM INTACT AND PATENT, FLUSHED WELL WITH 10ML NS. AT BEDSIDE. PER EMAR PT DUE FOR PAIN MEDS AT 1945. PT A&O X 4. VSS.
[2022-05-17 06:01] LABS: BASOPHILS ABSOLUTE AUTO 0.02 K/mm3 (0.00-0.23); BASOPHILS PERCENT AUTO 0 % (0-2); EOSINOPHILS ABSOLUTE AUTO 0.04 K/mm3 (0.00-0.68); EOSINOPHILS PERCENT AUTO 0 % (0-6); Hematocrit 31.6 % (37.0-53.0); Hemoglobin 10.3 g/dL (13.5-17.5); IMMATURE GRAN ABSOLUTE AUTO 0.04 K/mm3 (0.00-0.10); IMMATURE GRAN PERCENT AUTO 0 % (0-1); LYMPHOCYTES ABSOLUTE AUTO 1.64 K/mm3 (0.84-5.20); LYMPHOCYTES PERCENT AUTO 12 % (21-46); MONOCYTES ABSOLUTE AUTO 1.33 K/mm3 (0.16-1.47); MONOCYTES PERCENT AUTO 10 % (4-13); Mean Corpuscular HGB 28.5 pg (26.0-34.0); Mean Corpuscular HGB Conc 32.6 g/dL (31.5-36.5); Mean Corpuscular Volume 88 fL (80-100); Mean Platelet Volume 10.3 fL (9.1-12.4); NEUTROPHILS ABSOLUTE AUTO 10.72 K/mm3 (1.96-9.15); NEUTROPHILS PERCENT AUTO 78 % (41-73); Platelet Count 370 K/mm3 (150-400); RDW Coefficient Variation 14.3 % (11.7-14.2); Red Blood Cell Count 3.61 M/mm3 (4.30-5.90); White Blood Cell Count 13.79 K/mm3 (4.00-11.30)
[2022-05-17 06:20] LABS: Bun/Creatinine Ratio 12.6 (12.0-20.0); Calcium, Blood 8.9 mg/dL (8.5-10.1); Creatinine, Blood 0.79 mg/dL (0.60-1.20); Potassium, Blood 3.9 mmol/L (3.5-5.5)
--- NOTE | 2022-05-17 07:59 | NUR ---
STARCH MANGLE TENDER SUMMARY: A&Ox4. PLEASANT AND COOPERATIVE WITH CARE. ABLE TO COMMUNICATE NEEDS AND CALLS APPROPRIATELY. C/O INCREASED PAIN T/O THE NIGHT AND ADMINISTERED ALTERNATING IV FENTANYL AND PO TRAMADOL. PAIN WHEN ELEVATING ON A PILLOW SO CONTINUES TO KEEP OFF OF A PILLOW. GLUCOSE CHECKS COVERED WITH SS. NO ACUTE CONCERNS THROUGHOUT THE NIGHT. WILL REPORT TO ONCOMING RN.
[2022-05-17 10:56] LABS: Vancomycin, Trough 17.1 ug/mL (5.0-10.0)
--- NOTE | 2022-05-17 18:57 | NUR ---
SHIFT SUMMARY PT A&O X 4. VSS. BG's COVERED PER SS INDICATED. PT SAT UP ON EDGE OF BED FOR DINNER AND DID QUITE WELL. MD CHANGED PT'S PAIN MEDICATION AND PT RECEIVED GOOD PAIN RELIEF WITH PERCOCET ORDERED. FENTANYL WAS USED ONCE TO RELIEVE PAIN. SURGEON REMOVED HEMOVAC DRAIN FROM WOUND AND CHANGED THE DRESSING. DRESSING REMAINS C/D/I. IV ABX GIVEN ORDERED.
[2022-05-18 03:42] LABS: BASOPHILS ABSOLUTE AUTO 0.02 K/mm3 (0.00-0.23); BASOPHILS PERCENT AUTO 0 % (0-2); EOSINOPHILS ABSOLUTE AUTO 0.21 K/mm3 (0.00-0.68); EOSINOPHILS PERCENT AUTO 2 % (0-6); Hematocrit 29.2 % (37.0-53.0); Hemoglobin 9.5 g/dL (13.5-17.5); IMMATURE GRAN ABSOLUTE AUTO 0.05 K/mm3 (0.00-0.10); IMMATURE GRAN PERCENT AUTO 0 % (0-1); LYMPHOCYTES ABSOLUTE AUTO 1.96 K/mm3 (0.84-5.20); LYMPHOCYTES PERCENT AUTO 15 % (21-46); MONOCYTES ABSOLUTE AUTO 1.58 K/mm3 (0.16-1.47); MONOCYTES PERCENT AUTO 12 % (4-13); Mean Corpuscular HGB 29.1 pg (26.0-34.0); Mean Corpuscular HGB Conc 32.5 g/dL (31.5-36.5); Mean Corpuscular Volume 89 fL (80-100); Mean Platelet Volume 10.2 fL (9.1-12.4); NEUTROPHILS ABSOLUTE AUTO 8.94 K/mm3 (1.96-9.15); NEUTROPHILS PERCENT AUTO 70 % (41-73); Platelet Count 336 K/mm3 (150-400); RDW Coefficient Variation 14.5 % (11.7-14.2); RDW Standard Deviation 47.7 fL (35.1-46.3); Red Blood Cell Count 3.27 M/mm3 (4.30-5.90); White Blood Cell Count 12.76 K/mm3 (4.00-11.30)
[2022-05-18 04:10] LABS: Vancomycin, Trough 20.6 ug/mL (5.0-10.0)
--- NOTE | 2022-05-18 05:32 | NUR ---
CITY CONSTABLE SUMMARY: A&Ox4. PLEASANT AND COOPERATIVE WITH CARE. CONTINUES TO C/O PAIN BUT IS TRYING TO STRETCH OUT THE TIME BETWEEN DOSES OF MEDICATIONS. UTILIZING FENTALYL IV 25MCG q4-6h AND PERCOCET 5/325 1 PO Q4-6h. REPORTS HE IS ABLE TO MOVE HIS LEG A LITTLE MORE THAN HE WAS YESTERDAY. HAS BEEN ABLE TO GET SOME SLEEP AND STATES THIS HAS HELPED HIS PSYCHE. VSS. NO BM; STATES HE IS HAVING A DIFFICULT TIME ALLOWING HIMSELF TO GO "IN BED" IN SPITE OF HAVING BED NELSON BENEATH HIM. DISCUSSED USING BEDSIDE COMMODE; STATES HE WILL CONSIDER IT AND LET US KNOW IF HE FEELS THE NEED TO STOOL. NO ACUTE CONCERNS T/O THE NIGHT. WILL REPORT TO ONCOMING RN.
--- NOTE | 2022-05-18 19:32 | NUR ---
SHIFT SUMMARY PT A&O X 4. VSS, THOUGH BP SOMEWHAT SOFTER THAN WHAT HE'S BEEN RUNNING. (SEE VITAL SIGNS) PT STATES HE'S QUITE TIRED AND IS SLEEPY. LOW GRADE TEMP 100.1, GAVE TYLENOL. WBC'S 12.6 TODAY. ENCOURAGED DEEP BREATHING & COUGHING. SAT PT UPRIGHT AND HAD HIM TAKE IN DEEP BREATHS AND COUGH. CHECKED BG's TWICE TO BE SURE HE WASN'T HAVING LOW BG. HE HAS RESTED THROUGHOUT AFTERNOON, RESP EVEN & UNLABORED. HAS DENIED PAIN THIS SHIFT. L STUMP DRESSING C/D/I. PT COOPERATED WITH PT & OT TODAY. PLAN IS FOR SNF PLACEMENT UPON DC.
--- NOTE | 2022-05-19 06:04 | NUR ---
PARKING ENFORCEMENT TECHNICIAN SUMMARY PT VERY LETHARGIC T/O THE SHIFT; ABLE TO AROUSE FOR BRIEF PERIODS OF TIME; NOT STAYING AWAKE. PT WAS ON 2L 02 NC AT THE BEGINNING OF SHIFT; TRIED WEANING; PT FELL ASLEEP; O2 SAT DROPPED TO 74%. BACK ON 2L NC AND NEW ORDER FOR CONT PULSE OX. PT HAS A FEW EPISODES OF DROPPING INTO THE 80'S T/O THE NIGHT. PT THINKS THE PAIN MEDS ARE THE REASON FOR DROWSINESS AND REPORTED NO PAIN T/O MOST OF THE NIGHT UNTIL THIS AM; C/O PHANTOM PAIN 01/25; ADMIN 1 DOSE OF PERCOSET. CONT TO ENCOURAGE DEEP BREATH/COUGH; INCENTIVE SPIROMETER AT BEDSIDE W/INSTRUCTION. PT EPISODE OF INCONTENINCE; SAT BRIEF AND CHUCKS; DURING HEAVY SLEEP. CALL LIGHT IN REACH.
--- NOTE | 2022-05-19 17:50 | NUR ---
PATIENT GROGGY THIS AM. SOME MEDICATIONS HELD PER PROVIDER. PAIN MEDICATION HAS A HIGH EFFECT WITH LETHARGY. PAIN IS HIGH WHEN UNTREATED. OXYGEN CONTINUES TO DESAT WITHOUT THE NC. WE ARE ATTEMPTING TO WEAN BUT WHEN HE FALLS ASLEEP, THE SATS DROP. ARPITA WAS SEEN BY THE SURGEON THIS SHIFT. WE UNWRAPPED HIS AMP, AND THE SURGEON WAS HAPPY WITH THE RESULT. PIERCE ARE IN PLACE WITH SLIGHT BROWN DRAINIAGE- NOT MUCH. DRESSING WAS CHANGED AND SURGEON STATED THAT DRESSING CHANGES COULD BE DRY, GAUZE THEN ABD WITH WRAP AROUND. COMPANY PRESENT THIS SHIFT. IS HERE NOW. SHE TAMELA IN FOOD, AND THEY ALSO DRANK ROOT BEER- PATIENT IS WORKING ON HIS HOSPITAL [facility] [employer].
--- NOTE | 2022-05-20 04:05 | NUR ---
SHIFT SUMMARY 62 YR M ADMITTED ON 05/14/22 FOR LEFT BKA. FULL CODE. NO ACUTE CHANGES THIS SHIFT. PT WAS MEDICATED FOR PAIN EARLY IN THIS SHIFT AND OF 399 HAS HAD NO OTHER C/O PAIN. HE HAD SEVERAL INCONTINENT EPISODES THIS SHIFT, HE SLEPT FOR MOST OF IT. BLOOD GLUCOSE WAS 196 @ 2100 DESPITE HAVING OUTSIDE FOOD AND SODA. LANTIS GIVEN BUT SLIDING SCALE COVERAGE WAS NOT INDICATED. PT IS PLEASANT AND COOPERATIVE WITH CARE.
[2022-05-20 06:20] LABS: BASOPHILS ABSOLUTE AUTO 0.03 K/mm3 (0.00-0.23); BASOPHILS PERCENT AUTO 0 % (0-2); EOSINOPHILS ABSOLUTE AUTO 0.29 K/mm3 (0.00-0.68); EOSINOPHILS PERCENT AUTO 3 % (0-6); Hematocrit 26.2 % (37.0-53.0); Hemoglobin 8.4 g/dL (13.5-17.5); IMMATURE GRAN ABSOLUTE AUTO 0.02 K/mm3 (0.00-0.10); IMMATURE GRAN PERCENT AUTO 0 % (0-1); LYMPHOCYTES ABSOLUTE AUTO 1.46 K/mm3 (0.84-5.20); LYMPHOCYTES PERCENT AUTO 14 % (21-46); MONOCYTES ABSOLUTE AUTO 1.09 K/mm3 (0.16-1.47); MONOCYTES PERCENT AUTO 11 % (4-13); Mean Corpuscular HGB 29.1 pg (26.0-34.0); Mean Corpuscular HGB Conc 32.1 g/dL (31.5-36.5); Mean Corpuscular Volume 91 fL (80-100); Mean Platelet Volume 10.2 fL (9.1-12.4); NEUTROPHILS ABSOLUTE AUTO 7.39 K/mm3 (1.96-9.15); NEUTROPHILS PERCENT AUTO 72 % (41-73); Platelet Count 386 K/mm3 (150-400); RDW Coefficient Variation 14.6 % (11.7-14.2); Red Blood Cell Count 2.89 M/mm3 (4.30-5.90); White Blood Cell Count 10.28 K/mm3 (4.00-11.30)
[2022-05-20 06:35] LABS: Bun/Creatinine Ratio 18.4 (12.0-20.0); Calcium, Blood 8.8 mg/dL (8.5-10.1); Creatinine, Blood 2.39 mg/dL (0.60-1.20); Potassium, Blood 4.3 mmol/L (3.5-5.5)
--- NOTE | 2022-05-20 16:37 | NUR ---
SHIFT SUMMARY- PT CONFUSED AND SLEEPY AT TIMES. VSS. PT REQUESTED 'BREAK FROM O2" PT STABLE SATING 92-94% ACCORDING TO PULSE OX. WILL CONTINUE TO MONITOR. PT ABLE TO URINATE SMALL AMOUNTS AT A TIME VIA URINAL. C/O PAIN X2, MEDICATED PER EMAR. ALERT WHEN AROUSED. PT UP IN CHAIR FOR 1 HR TODAY. ELEVATED LLE UNDER PILLOW. SOME TIMES OF INCONITENCE. SIDE RAILS UP FOR SAFETY, CALL LIGHT IN REACH.
--- NOTE | 2022-05-20 17:53 | NUR ---
END OF SHIFT- PT REPORTS HAVING HALLUCINATIONS A TIMES THROUGHOUT DAY. MENTATIONS SLOW TO RESPOND AT TIMES, VSS. BLADDER SCAN 288ML , PT VOIDED 150 AFTER. WILL CONTINUE TO MONITOR.
--- NOTE | 2022-05-21 05:09 | NUR ---
SHIFT LARGELY UNREMARKABLE. CLIENT IS RESPONDING WELL TO PAIN MANAGEMENT PER EMR AND OXYGEN SATURATION HAS REMAINED >90% WITH 2 LITERS OF O2 VIA NASAL CANNULA. AMPUTATION DRESSING SCHEDULED TO BE CHANGED TODAY. PATIENT HAS BEEN AOX2-3 THROUGHOUT SHIFT. USES URINAL FOR VOIDING, OUTPUT IS DOCUMENTED. CALL LIGHT LEFT WITHIN REACH.
[2022-05-21 06:07] LABS: Bun/Creatinine Ratio 21.8 (12.0-20.0); Calcium, Blood 8.7 mg/dL (8.5-10.1); Creatinine, Blood 1.88 mg/dL (0.60-1.20); Potassium, Blood 4.2 mmol/L (3.5-5.5)
[2022-05-21] MEDS ORDERED: DOCU100 PO (12:09)
[2022-05-21 12:57] LABS: SARS-Cov-2 (COVID-19) PCR, MMC NEGATIVE (NEGATIVE)
--- NOTE | 2022-05-21 16:18 | NUR ---
DISCHARGE NOTE: PT A&O X3, PLEASANT AND COOPERATIVE. PT NOTIFIED OF TRANSPORTATION TO [facility] BY . PT POWERGLIDE REMOVED WITH CATHETER INTACTED. PT TRANSFERED TO BY LIFT. PT PERSONAL BELONGINGS PACKED BY CASER ANU KERN. PT ESCORTED BY TRANSPORTATION TO [facility] VIA . REPORT GIVEN TO RIKKI KERN AT [facility] AT 1500.
== END 2022-05-21 16:12 | DRG 474 ==
LOC: ER 17:13 → MEDS 21:17
PROVIDERS: Family Medicine; Orthopaedic Surgery; Physician Assistant; Student in an Organized Health Care Education/Training Program; ADMIT Family Medicine
PROC: 3E03329 Introduction of Other Anti-infective into Peripheral Vein, Percutaneous Approach (ICD-10-PCS; principal; 2022-05-14)
PROC: 0Y6J0Z1 Detachment at Left Lower Leg, High, Open Approach (ICD-10-PCS; 2022-05-16)
DX: T87.44 Infection of amputation stump, left lower extremity (principal); A41.1 Sepsis due to other specified staphylococcus; E87.1 Hypo-osmolality and hyponatremia; L03.116 Cellulitis of left lower limb; M86.8X7 Other osteomyelitis, ankle and foot; N17.9 Acute kidney failure, unspecified; E78.00 Pure hypercholesterolemia, unspecified; K21.9 Gastro-esophageal reflux disease without esophagitis; I10 Essential (primary) hypertension; E03.9 Hypothyroidism, unspecified; E11.42 Type 2 diabetes mellitus with diabetic polyneuropathy; R34 Anuria and oliguria; A49.02 Methicillin resistant Staphylococcus aureus infection, unspecified site; E11.51 Type 2 diabetes mellitus with diabetic peripheral angiopathy without gangrene; E11.621 Type 2 diabetes mellitus with foot ulcer; L97.529 Non-pressure chronic ulcer of other part of left foot with unspecified severity; J44.9 Chronic obstructive pulmonary disease, unspecified; M83.9 Adult osteomalacia, unspecified; F32.A Depression, unspecified; M46.02 Spinal enthesopathy, cervical region; M79.7 Fibromyalgia; D75.839 Thrombocytosis, unspecified; D64.9 Anemia, unspecified; I25.10 Atherosclerotic heart disease of native coronary artery without angina pectoris; M79.2 Neuralgia and neuritis, unspecified; G47.33 Obstructive sleep apnea (adult) (pediatric); Z20.822 Contact with and (suspected) exposure to COVID-19; Z86.718 Personal history of other venous thrombosis and embolism; I25.2 Old myocardial infarction; Z79.891 Long term (current) use of opiate analgesic; Z88.8 Allergy status to other drugs, medicaments and biological substances; Z86.711 Personal history of pulmonary embolism; Z87.891 Personal history of nicotine dependence; Z98.890 Other specified postprocedural states; Z79.2 Long term (current) use of antibiotics; Z79.899 Other long term (current) drug therapy; Z79.01 Long term (current) use of anticoagulants; Z79.02 Long term (current) use of antithrombotics/antiplatelets; Z79.4 Long term (current) use of insulin; Z79.811 Long term (current) use of aromatase inhibitors; Z95.820 Peripheral vascular angioplasty status with implants and grafts; Z89.432 Acquired absence of left foot; Z79.52 Long term (current) use of systemic steroids
CPT/HCPCS: 0241U; 36415; 73552; 73590; 73620; 76770; 80048; 80053; 80202; 82947; 83605; 85025; 85610; 85651; 86140; 87040; 88307; 88311; 94760; 94762; 97110; 97116; 97162; 97166; 97530; 97535; 99285-25; A9270; C1751; J0360; J0692; J1650; J1815; J2370; J2704; J3010; J3370; J7030; J7050; J7120; U0004

== ENCOUNTER → 2022-06-29 | Outpatient (CLI) | payer BC, MEDICARE ==
[~2022-06-29] MED LIST changes: +CHLO25B PO; +Cleocin HCl150 MG PO; +DOCU100 PO; +FIASP 100100 UNIT/3 SC; +FLUT.05NI; +LEVEMIR FL100 UNIT/2 SC; +MIRALAX17 GM PO; +MUPIROCIN1 G1 TOP; +SELENIUM SULFIDE TOP
[2022-06-30 15:20] LABS: Campylobacter Sp Not Detected (NOT DETECT); Enteroaggregative E. coli-EAEC Not Detected (NOT DETECT); Plesiomonas Shigelloides Not Detected (NOT DETECT); Salmonella Sp Not Detected (NOT DETECT); Vibrio Cholerae Not Detected (NOT DETECT); Vibrio Sp Not Detected (NOT DETECT); Yersinia Enterocolitica Not Detected (NOT DETECT)
[2022-06-30 15:21] LABS: Adenovirus F 40/41 Not Detected (NOT DETECT); Astrovirus Not Detected (NOT DETECT); Cryptosporidium Not Detected (NOT DETECT); Cyclospora Cayetanensis Not Detected (NOT DETECT); E. Coli O157 Not Detected (NOT DETECT); Entamoeba Histolytica Not Detected (NOT DETECT); Enteropathogenic E. coli-EPEC Not Detected (NOT DETECT); Enterotoxigenic E. coli-ETEC Not Detected (NOT DETECT); Giardia Lamblia Not Detected (NOT DETECT); Norovirus GI/GII Not Detected (NOT DETECT); Rotavirus A Not Detected (NOT DETECT); Sapovirus Not Detected (NOT DETECT); Shiga Toxin-prod E. coli-STEC Not Detected (NOT DETECT); Shigella/Enteroin E. coli-EIEC Not Detected (NOT DETECT)
== END | disposition home or self-care (01) ==
LOC: LAB SHORT 19:45 → LAB 19:45
PROVIDERS: Nurse Practitioner Family
DX: R19.7 Diarrhea, unspecified (principal)
CPT/HCPCS: 87507

== ENCOUNTER → 2022-10-23 | Outpatient (CLI) | payer BC, MEDICARE, OTHER | END | disposition home or self-care (01) | LOC: LAB SHORT 17:34 | DX: M54.50 Low back pain, unspecified (principal); R35.0 Frequency of micturition; R42 Dizziness and giddiness | CPT/HCPCS: 87086 ==

== ENCOUNTER → 2023-06-22 | Outpatient (CLI) | payer MEDICARE, OTHER | LOC: LAB 13:46 → LAB SHORT 13:46 | DX: R07.89 Other chest pain (principal) | CPT/HCPCS: 84484 ==

== ENCOUNTER → 2023-12-28 | Outpatient (CLI) | payer OTHER ==
[~2023-12-28] MED LIST changes: +INSULANI SC; +JARDIANCE25 MG PO; +TRULICITY3 MG/0.5 M SC
== END | disposition home or self-care (01) ==
LOC: LAB SHORT 08:30 → LAB 08:30
DX: T87.40 Infection of amputation stump, unspecified extremity (principal)
CPT/HCPCS: 87070; 87075; 87076; 87205

== ENCOUNTER 2024-03-08 05:40 | Day surgery (SDC) | payer OTHER | END 2024-03-08 23:16 | disposition home or self-care (01) | LOC: WOUND 05:40 | DX: L89.893 Pressure ulcer of other site, stage 3 (principal); E11.622 Type 2 diabetes mellitus with other skin ulcer; E11.51 Type 2 diabetes mellitus with diabetic peripheral angiopathy without gangrene; I10 Essential (primary) hypertension; Z88.8 Allergy status to other drugs, medicaments and biological substances; Z87.891 Personal history of nicotine dependence; J44.9 Chronic obstructive pulmonary disease, unspecified; G47.30 Sleep apnea, unspecified; E03.9 Hypothyroidism, unspecified | CPT/HCPCS: A6213; G0463 ==

== ENCOUNTER 2024-03-22 09:23 | Day surgery (SDC) | payer OTHER | END 2024-03-22 22:52 | disposition home or self-care (01) | LOC: WOUND 09:23 | DX: L89.93 Pressure ulcer of unspecified site, stage 3 (principal); E11.622 Type 2 diabetes mellitus with other skin ulcer; E11.51 Type 2 diabetes mellitus with diabetic peripheral angiopathy without gangrene; I10 Essential (primary) hypertension | CPT/HCPCS: G0463 ==

== ENCOUNTER 2024-07-03 10:27 | Inpatient (IN) | payer OTHER ==
[~2024-07-03] VITALS: Ht 172.7 cm; Wt 114.8 kg
[2024-07-03 11:18] LABS: BASOPHILS ABSOLUTE AUTO 0.04 K/mm3 (0.00-0.23); BASOPHILS PERCENT AUTO 0 % (0-2); EOSINOPHILS ABSOLUTE AUTO 0.11 K/mm3 (0.00-0.68); EOSINOPHILS PERCENT AUTO 1 % (0-6); Hematocrit 42.2 % (37.0-53.0); Hemoglobin 14.1 g/dL (13.5-17.5); IMMATURE GRAN ABSOLUTE AUTO 0.04 K/mm3 (0.00-0.10); IMMATURE GRAN PERCENT AUTO 0 % (0-1); LYMPHOCYTES ABSOLUTE AUTO 1.66 K/mm3 (0.84-5.20); LYMPHOCYTES PERCENT AUTO 18 % (21-46); MONOCYTES ABSOLUTE AUTO 0.69 K/mm3 (0.16-1.47); MONOCYTES PERCENT AUTO 7 % (4-13); Mean Corpuscular HGB 30.5 pg (26.0-34.0); Mean Corpuscular HGB Conc 33.4 g/dL (31.5-36.5); Mean Corpuscular Volume 91 fL (80-100); Mean Platelet Volume 10.6 fL (9.1-12.4); NEUTROPHILS ABSOLUTE AUTO 6.73 K/mm3 (1.96-9.15); NEUTROPHILS PERCENT AUTO 73 % (41-73); Platelet Count 269 K/mm3 (150-400); RDW Standard Deviation 42.7 fL (35.1-46.3); Red Blood Cell Count 4.63 M/mm3 (4.30-5.90); White Blood Cell Count 9.27 K/mm3 (4.00-11.30)
[2024-07-03 11:46] LABS: Albumin, Blood 3.3 g/dL (3.4-5.0); Albumin/Globulin Ratio 0.8 (0.8-1.8); Bilirubin, Total 0.5 mg/dL (0.1-1.0); Bun/Creatinine Ratio 18.4 (12.0-20.0); Calcium, Blood 9.5 mg/dL (8.5-10.1); Creatinine, Blood 1.03 mg/dL (0.60-1.20); Globulin, Blood 4.4 g/dL (2.2-4.0); Potassium, Blood 4.3 mmol/L (3.5-5.5); Total Protein, Blood 7.7 g/dL (6.4-8.2)
[2024-07-03] MEDS ORDERED: Nitroglycerin 0.4 MG SUBL SL PRN (13:40)
[2024-07-03 14:37] LABS: Prothrombin Time Results 10.7 Sec (9.7-11.5)
[2024-07-03] MEDS ORDERED: Dose Adjust by Pharmacy XX STA ×2 (14:39→22:21)
[2024-07-03] MEDS ORDERED: Heparin Sodium 5000 Units/ML 1ML MDV IV ONE (14:40)
[2024-07-03] MEDS ORDERED: Heparin Sodium,Porcine/0.5 NS 500 ML IV SCH (14:40)
[2024-07-03] MEDS ORDERED: BASAGLAR K100 UNIT/8 SC (15:32)
[2024-07-03] MEDS ORDERED: FIASP 100100 UNIT/3 SC (15:34)
[2024-07-03] MEDS ORDERED: FLU VACC TS2024-25(6MOS UP)/PF 45 MCG/0.5 ML SYRINGE IM ONE (15:50)
[2024-07-03] MEDS ORDERED: OxyCODONE HCL 5 MG TAB PO PRN (16:05)
[2024-07-03] MEDS ORDERED: Insulin Human Lispro 100 Units/ML 3ML Syringe SC SCH (16:30)
[2024-07-03 18:25] VITALS: BP 151/84
--- NOTE | 2024-07-03 18:52 | NUR ---
ASSUMPTION OF CARE/ SHIFT SUMMARY PT FROM ER, REPORT RECEIVED BY THIS RN FROM ER NURSE. PT BROUGHT TO PCU 17 , PT SLIDE HIMSELF WITH ASSISTANCE FROM ER BED TO PCU BED. PT RESTING IN THE ROOM REQUESTING FOOD VSS.
[2024-07-03 20:06] VITALS: BP 135/69
[2024-07-03] MEDS ORDERED: Cilostazol 50 MG Tab PO SCH (21:00)
[2024-07-03] MEDS ORDERED: Gabapentin 300 MG Cap PO SCH (21:00)
[2024-07-03] MEDS ORDERED: Atorvastatin 40 MG Tab PO SCH (21:00)
[2024-07-03] MEDS ORDERED: Insulin Glargine-Yfgn 100 Unit/mL 3 ML SYR SC SCH (21:00)
[2024-07-03] MEDS ORDERED: TraZODone HCl 100 MG Tab PO SCH (21:00)
[2024-07-04] VITALS (12 sets, daily range): BP systolic 118–166; BP diastolic 51–92
[2024-07-04 04:33] LABS: BASOPHILS ABSOLUTE AUTO 0.03 K/mm3 (0.00-0.23); BASOPHILS PERCENT AUTO 0 % (0-2); EOSINOPHILS PERCENT AUTO 2 % (0-6); Hematocrit 41.7 % (37.0-53.0); Hemoglobin 13.7 g/dL (13.5-17.5); IMMATURE GRAN ABSOLUTE AUTO 0.03 K/mm3 (0.00-0.10); IMMATURE GRAN PERCENT AUTO 0 % (0-1); LYMPHOCYTES ABSOLUTE AUTO 1.39 K/mm3 (0.84-5.20); LYMPHOCYTES PERCENT AUTO 13 % (21-46); MONOCYTES ABSOLUTE AUTO 0.85 K/mm3 (0.16-1.47); MONOCYTES PERCENT AUTO 8 % (4-13); Mean Corpuscular HGB 30.2 pg (26.0-34.0); Mean Corpuscular HGB Conc 32.9 g/dL (31.5-36.5); Mean Corpuscular Volume 92 fL (80-100); Mean Platelet Volume 10.5 fL (9.1-12.4); NEUTROPHILS ABSOLUTE AUTO 8.31 K/mm3 (1.96-9.15); NEUTROPHILS PERCENT AUTO 77 % (41-73); Platelet Count 252 K/mm3 (150-400); RDW Coefficient Variation 13.1 % (11.7-14.2); RDW Standard Deviation 44.4 fL (35.1-46.3); Red Blood Cell Count 4.53 M/mm3 (4.30-5.90); White Blood Cell Count 10.81 K/mm3 (4.00-11.30)
[2024-07-04 05:13] LABS: Albumin, Blood 3.1 g/dL (3.4-5.0); Albumin/Globulin Ratio 0.7 (0.8-1.8); Bilirubin, Total 0.6 mg/dL (0.1-1.0); Bun/Creatinine Ratio 20.8 (12.0-20.0); Calcium, Blood 9.3 mg/dL (8.5-10.1); Creatinine, Blood 1.01 mg/dL (0.60-1.20); Globulin, Blood 4.3 g/dL (2.2-4.0); Potassium, Blood 4.1 mmol/L (3.5-5.5); Total Protein, Blood 7.4 g/dL (6.4-8.2)
[2024-07-04] MEDS ORDERED: Dose Adjust by Pharmacy XX STA (05:26)
[2024-07-04] MEDS ORDERED: Levothyroxine Sodium 0.1 MG Tab PO SCH (06:00)
[2024-07-04] MEDS ORDERED: Pantoprazole Sodium 40 MG Tab PO SCH (06:00)
--- NOTE | 2024-07-04 06:40 | NUR ---
SHIFT SUMMARY ASSUMED CARE OF PT AT 1900. PT A&O4, COOPERATIVE IN CARE AND ABLE TO EXPRESS NEEDS APPROPRIATELY. PT PRESENTED WITH HEALED L BKA AND CALLUS TO THE KNEE AND STUMP; NO OTHER SKIN BREAKDOWN PRESENT. PT C/O SOB WITH EXERTION, PLACED 2LNC AND MALE WICKING SYSTEM. PT DENIED CP/PRESSURE OVERNIGHT. HEP GTTS RUNNING AND TITRATION ORDERS MANAGED BY RX. BED IN LOWEST POSITION CAN CALL LIGHT WITHIN REACH.
[2024-07-04] MEDS ORDERED: Nitroglycerin 2 MG/20 ML BTL ONE (07:38)
[2024-07-04] MEDS ORDERED: NS 250 ML IV ONE (07:38)
[2024-07-04] MEDS ORDERED: Verapamil HCL 2.5 MG/ML 2ML Injection ONE (07:38)
[2024-07-04] MEDS ORDERED: Heparin Sodium 1000 Units/ML 10ML MDV ONE (07:38)
[2024-07-04] MEDS ORDERED: NS 1,000 ML IV ONE ×2 (07:38→10:50)
[2024-07-04] MEDS ORDERED: Clopidogrel Bisulfate 75 MG Tab PO SCH (09:00)
[2024-07-04] MEDS ORDERED: FLUoxetine HCL 20 MG CAP PO SCH (09:00)
[2024-07-04] MEDS ORDERED: Empagliflozin 25 MG TAB PO SCH (09:00)
[2024-07-04] MEDS ORDERED: ARIPiprazole 5 MG Tab PO SCH (09:00)
[2024-07-04] MEDS ORDERED: FentaNYL Citrate 50 MCG/ML 2 ML Injection ONE (10:49)
[2024-07-04] MEDS ORDERED: Midazolam HCl 1MG / ML 2ML Vial ONE (10:50)
[2024-07-04] MEDS ORDERED: Tirofiban HCL Monohydrate 3.75 MG/15 ML Vial ONE (11:30)
--- NOTE | 2024-07-04 13:17 | NUR ---
TRANSFER OF CARE NOTE. PT TRANSFERED TO PCU 17 AT 1200 S/P CORONARY ANGIOGRAM/DIAGNOSTIC. PT AWAKE AND ALERT, DENIES COMPLAINTS. BEDSIDE REPORT GIVEN TO SYLWIA KERN. TR BAND SITE TO RIGHT RADIAL REVIEWED W RN, SITE WNL.
--- NOTE | 2024-07-04 18:20 | NUR ---
SHIFT SUMMARY; ASSUMED CARE AT 0700. ANGIO TODAY RIGHT WRIST TR BAND RECOVERED PER ORDERS. NO BLEEDING OR HEMATOMA. HEPARIN RESTARTED PER CARDILOGY AFTER TR BANK RECOVERED. ARM BOARD INPLACE. A/A/OX4, SPOUSE AT BEDSIDE MOST OF SHIFT. PLEASANT AND COOPERATIVE WITH CARE. PENDING COBRA TRANSFER, DENIES CP OR SOB. 2L 02 VIA NC PRN TO MAINTAIN SATS 94%. WILL CONTINUE TO MONITOR AND TREAT UNTIL CHANGE OF SHIFT.
[2024-07-04] MEDS ORDERED: Insulin Glargine-Yfgn 100 Unit/mL 3 ML SYR SC SCH (21:00)
--- NOTE | 2024-07-04 21:18 | NUR ---
ASSUMPTION OF CARE THIS RN ASSUMED CARE OF PATIENT AT 1900. BEDSIDE SHIFT REPORT DONE WITH CONCHA CHATTERJEE. PT NOTED TO HAVE PULLED IV OUT, HEPARIN GTT STILL RUNNING AND PUDDLE NOTED ON FLOOR. PHARMACY NOTIFIED. NEW IV ESTABLISHED AND HEPARIN GTT INFUSING AGAIN PER EMAR. VSS. ON 2L VIA NC TO MAINTAIN SPO2. RT RADIAL SITE WITH TEGADERM IN PLACE. C/D/I. SIT WITH MINIMAL SWELLING AT PUNCTURE SITE. ARMBOARD IN PLACE. THIS RN REINFORCED EDUCATION REGARDING USE OF HAND/WRIST AND RESTRICTIONS. PPP. PT REPORTS CONTINUED CHEST PAIN, MD AWARE. PT STATES IT IS MINIMAL AND HE IS ABLE TO SLEEP THROUGH IT. BED IN LOWEST POSITION AND CALL LIGHT WITHIN REACH.
[2024-07-05] MEDS ORDERED: Dose Adjust by Pharmacy XX STA (00:06)
[2024-07-05 04:04] VITALS: BP 134/72
--- NOTE | 2024-07-05 04:34 | NUR ---
SHIFT SUMMARY SEE PREVIOUS NOTE. HEP GTT INFUSING PER EMAR. NO CHANGES TO RT RADIAL ACCESS SITE, MINIMAL SWELLING UNCHANGED DURING THIS SHIFT. ON 2L VIA NC. OTHER VSS. NO ACUTE CHANGES DURING THIS SHIFT. MALE PUREWICK IN PLACE DRAINING DARK YELLOW URINE. PT CALLING APPROPRIATELY. BED IN LOWEST POSITION AND CALL LIGHT WITHIN REACH. THIS RN WILL REPORT TO ONCOMING DAYSHIFT RN.
[2024-07-05 06:45] LABS: BASOPHILS ABSOLUTE AUTO 0.05 K/mm3 (0.00-0.23); BASOPHILS PERCENT AUTO 1 % (0-2); EOSINOPHILS ABSOLUTE AUTO 0.21 K/mm3 (0.00-0.68); EOSINOPHILS PERCENT AUTO 2 % (0-6); Hematocrit 39.3 % (37.0-53.0); Hemoglobin 12.8 g/dL (13.5-17.5); IMMATURE GRAN ABSOLUTE AUTO 0.03 K/mm3 (0.00-0.10); IMMATURE GRAN PERCENT AUTO 0 % (0-1); LYMPHOCYTES ABSOLUTE AUTO 1.82 K/mm3 (0.84-5.20); LYMPHOCYTES PERCENT AUTO 20 % (21-46); MONOCYTES ABSOLUTE AUTO 0.89 K/mm3 (0.16-1.47); MONOCYTES PERCENT AUTO 10 % (4-13); Mean Corpuscular HGB 30.6 pg (26.0-34.0); Mean Corpuscular HGB Conc 32.6 g/dL (31.5-36.5); Mean Corpuscular Volume 94 fL (80-100); Mean Platelet Volume 10.8 fL (9.1-12.4); NEUTROPHILS ABSOLUTE AUTO 6.15 K/mm3 (1.96-9.15); NEUTROPHILS PERCENT AUTO 67 % (41-73); Platelet Count 242 K/mm3 (150-400); RDW Coefficient Variation 13.2 % (11.7-14.2); RDW Standard Deviation 45.1 fL (35.1-46.3); Red Blood Cell Count 4.18 M/mm3 (4.30-5.90); White Blood Cell Count 9.15 K/mm3 (4.00-11.30)
[2024-07-05 06:55] LABS: Albumin, Blood 2.7 g/dL (3.4-5.0); Albumin/Globulin Ratio 0.6 (0.8-1.8); Bilirubin, Total 0.7 mg/dL (0.1-1.0); Bun/Creatinine Ratio 21.2 (12.0-20.0); Calcium, Blood 9.2 mg/dL (8.5-10.1); Creatinine, Blood 1.18 mg/dL (0.60-1.20); Globulin, Blood 4.2 g/dL (2.2-4.0); Potassium, Blood 4.1 mmol/L (3.5-5.5); Total Protein, Blood 6.9 g/dL (6.4-8.2)
[2024-07-05] MEDS ORDERED: Lactated Ringer's 500 ML IV SCH (08:00)
[2024-07-05 08:34] VITALS: BP 142/67
[2024-07-05 10:50] VITALS: BP 142/67
[2024-07-05 11:42] VITALS: BP 125/65
--- NOTE | 2024-07-05 12:50 | NUR ---
COBRA NOTE PT A&O X4, ABLE TO MAKE NEEDS KNOWN, OBEYS COMMANDS. DID NOT GET UP FOR THIS RN THIS SHIFT BUT BASELINE PT IS ABLE TO AMBULATE IND WITH FWW AND PROSTHETIC LEG, PT HAS HX LEFT BKA. LUNGS SOUND CLEAR T/O, DENIES SOB, NO SIGNS OF RESPIRIATORY DISTRESS NOTED, PT ON 2L O2 VIA NC WHILE SLEEPING, RA WHILE AWAKE. CONTINUOUS TELE MONITORING, SINUS RHYTHEM WITH PVC S, PT REPORTS CHEST PAIN/DISCOMFORT THAT HAS REMAINED THE SAME SINCE ADMISSION, DENIES ANY WORSENING CHEST P/P, HR 70-80 S. PT DENIES NAUSEA OR FEELINGS OF CONSTIPATION. PT CONNECTED TO MALE PUREWICK THAT IS SET TO LOW CONTINUOUS SUCTION, URINE CARL IN COLOR. RIGHT RADIAL SITE REMAINED UNCHANGED FROM START OF THIS SHIFT/NO SIGNS OF INFECTION/SMALL AMOUNT OF SWELLING, DRESSING C/D/I. REPORT GIVEN TO PCU NURSE AT [facility]. PT TAKING OUT MY MEDICAL TRANSPORT VIA [facility] @ APPROX 1244.
== END 2024-07-05 12:35 | disposition short-term general hospital (02) | DRG 281 ==
LOC: ER 10:27 → PCU 18:06
PROVIDERS: Emergency Medicine; Physician Assistant; ADMIT Family Medicine
PROC: B2111ZZ Fluoroscopy of Multiple Coronary Arteries using Low Osmolar Contrast (ICD-10-PCS; principal; 2024-07-04)
PROC: 4A023N7 Measurement of Cardiac Sampling and Pressure, Left Heart, Percutaneous Approach (ICD-10-PCS; 2024-07-04)
DX: I21.4 Non-ST elevation (NSTEMI) myocardial infarction (principal); F33.9 Major depressive disorder, recurrent, unspecified; J44.9 Chronic obstructive pulmonary disease, unspecified; E11.51 Type 2 diabetes mellitus with diabetic peripheral angiopathy without gangrene; I25.10 Atherosclerotic heart disease of native coronary artery without angina pectoris; Z96.652 Presence of left artificial knee joint; G47.33 Obstructive sleep apnea (adult) (pediatric); R51.9 Headache, unspecified; E03.9 Hypothyroidism, unspecified; K21.9 Gastro-esophageal reflux disease without esophagitis; M79.7 Fibromyalgia; E66.01 Morbid (severe) obesity due to excess calories; E11.65 Type 2 diabetes mellitus with hyperglycemia; T81.89XA Other complications of procedures, not elsewhere classified, initial encounter; X58.XXXA Exposure to other specified factors, initial encounter; Z87.891 Personal history of nicotine dependence; Z68.39 Body mass index [BMI] 39.0-39.9, adult; Z86.718 Personal history of other venous thrombosis and embolism; Z98.890 Other specified postprocedural states; Z79.891 Long term (current) use of opiate analgesic; Z79.4 Long term (current) use of insulin; Z88.8 Allergy status to other drugs, medicaments and biological substances; Z86.73 Personal history of transient ischemic attack (TIA), and cerebral infarction without residual deficits; Z79.899 Other long term (current) drug therapy; Z79.890 Hormone replacement therapy; Z79.02 Long term (current) use of antithrombotics/antiplatelets; Z79.84 Long term (current) use of oral hypoglycemic drugs; Z89.512 Acquired absence of left leg below knee; E78.5 Hyperlipidemia, unspecified
CPT/HCPCS: 36415; 71046; 76937; 80053; 80061; 82947; 83036; 83880; 84484; 85025; 85610; 85730; 93005; 93010; 93458; 96374; 99152; 99153; 99285-25; A9270; C1769; C1887; C1894; C8929; J1644; J1815; J2250; J3010; J3246; J7030; J7050; Q9957; Q9967

== ENCOUNTER 2025-02-26 11:01 | Inpatient (IN) | payer OTHER ==
[2025-02-26] VITALS (24 sets, daily range): BP systolic 98–148; BP diastolic 55–107
[~2025-02-26] VITALS: Ht 172.7 cm; Wt 109.7 kg
[~2025-02-26 11:01] MED LIST changes: +BASAGLAR K100 UNIT/8 SC
[2025-02-26] MEDS ORDERED: FentaNYL Citrate 50 MCG/ML 2 ML Injection IV PRN (11:10)
[2025-02-26 11:27] LABS: BASOPHILS ABSOLUTE AUTO 0.04 K/mm3 (0.00-0.23); BASOPHILS PERCENT AUTO 0 % (0-2); EOSINOPHILS ABSOLUTE AUTO 0.10 K/mm3 (0.00-0.68); EOSINOPHILS PERCENT AUTO 1 % (0-6); Hematocrit 42.6 % (37.0-53.0); Hemoglobin 13.5 g/dL (13.5-17.5); IMMATURE GRAN ABSOLUTE AUTO 0.02 K/mm3 (0.00-0.10); IMMATURE GRAN PERCENT AUTO 0 % (0-1); LYMPHOCYTES ABSOLUTE AUTO 1.57 K/mm3 (0.84-5.20); LYMPHOCYTES PERCENT AUTO 14 % (21-46); MONOCYTES ABSOLUTE AUTO 0.93 K/mm3 (0.16-1.47); MONOCYTES PERCENT AUTO 8 % (4-13); Mean Corpuscular HGB Conc 31.7 g/dL (31.5-36.5); Mean Corpuscular Volume 93 fL (80-100); NEUTROPHILS ABSOLUTE AUTO 8.36 K/mm3 (1.96-9.15); NEUTROPHILS PERCENT AUTO 76 % (41-73); NRBC ABSOLUTE 0.00 K/mm3 (0.00-0.02); NRBC Auto 0.0 /100 WBC (0.0-0.2); Platelet Count 206 K/mm3 (150-400); RDW Coefficient Variation 13.3 % (11.7-14.2); RDW Standard Deviation 45.4 fL (35.1-46.3)
[2025-02-26 11:54] LABS: Prothrombin Time Results 13.5 Sec (9.7-11.5)
[2025-02-26 11:56] LABS: Alanine Aminotransfer (ALT/SGP 29.0 U/L (12-78); Albumin, Blood 3.4 g/dL (3.4-5.0); Albumin/Globulin Ratio 0.8 (0.8-1.8); Anion Gap 5.0 mmol/L (3-11); Aspartate Aminotrans (AST/SGOT 42.0 U/L (12-37); Bilirubin, Total 0.9 mg/dL (0.1-1.0); Blood Urea Nitrogen 24.0 mg/dL (8-24); CO2, Blood 23.0 mmol/L (21-32); Calcium, Blood 9.0 mg/dL (8.5-10.1); Chloride, Blood 107.0 mmol/L (98-108); Creatinine, Blood 1.05 mg/dL (0.60-1.20); Globulin, Blood 4.0 g/dL (2.2-4.0); Glucose, Blood 143.0 mg/dL (70-99); Potassium, Blood 4.3 mmol/L (3.5-5.5); Sodium, Blood 131.0 mmol/L (136-145); Total Protein, Blood 7.4 g/dL (6.4-8.2)
[2025-02-26] MEDS ORDERED: Dose Adjust by Pharmacy XX STA (12:24)
[2025-02-26] MEDS ORDERED: Heparin Sodium 5000 Units/ML 1ML MDV IV ONE (12:25)
[2025-02-26] MEDS ORDERED: Heparin Sodium,Porcine/0.5 NS 500 ML IV SCH (12:25)
[2025-02-26] MEDS ORDERED: Midazolam HCl 1MG / ML 2ML Vial ONE (15:18)
[2025-02-26] MEDS ORDERED: FentaNYL Citrate 50 MCG/ML 2 ML Injection ONE (15:18)
[2025-02-26] MEDS ORDERED: Verapamil HCL 2.5 MG/ML 2ML Injection ONE (15:18)
[2025-02-26] MEDS ORDERED: NS 250 ML IV ONE (15:19)
[2025-02-26] MEDS ORDERED: Nitroglycerin 2 MG/20 ML BTL ONE (15:19)
[2025-02-26] MEDS ORDERED: NS 2,000 ML IV ONE (15:19)
[2025-02-26] MEDS ORDERED: Heparin Sodium 1000 Units/ML 10ML MDV ONE ×4 (15:19→17:34)
[2025-02-26] MEDS ORDERED: CARV6.25 PO (15:23)
[2025-02-26] MEDS ORDERED: Phenylephrine HCl 100 MCG/ML-NS 10MLSYR (1MG/10ML) ONE (16:55)
[2025-02-26] MEDS ORDERED: NS 500 ML IV ONE (17:45)
[2025-02-26] MEDS ORDERED: NS 1,000 ML IV SCH (18:30)
--- NOTE | 2025-02-26 19:13 | NUR ---
Admit/ End of shift note. Pt admitted from the ED into PCU4. Pt was oriented to room and call light system. Hep gtt infusing in right hand IV site. Angio completed this afternoon. Some complaints of CP (3/10) before angio. Post angio, denies pain. MD at bedside for first TR band assessment, 1mL of air was added to band, for total of 11mL. Pt is able to make needs known. Call light is within reach. Bed alarm is active.
--- NOTE | 2025-02-26 19:17 | NUR ---
Admit/ End of shift note. Pt admitted from the ED into PCU4. Pt was oriented to room and call light system. Hep gtt infusing in right hand IV site. Angio completed this afternoon. Some complaints of CP (3/10) before angio. MD at bedside for first TR band assessment, 1mL of air was added to band, for total of 11mL. Pt is able to make needs known. Call light is within reach. Bed alarm is active.
[2025-02-26] MEDS ORDERED: Insulin Human Lispro 100 Units/ML 3ML Syringe SC SCH (21:00)
[2025-02-27] VITALS (28 sets, daily range): BP systolic 100–151; BP diastolic 54–97
[2025-02-27 04:38] LABS: BASOPHILS ABSOLUTE AUTO 0.04 K/mm3 (0.00-0.23); BASOPHILS PERCENT AUTO 0 % (0-2); EOSINOPHILS ABSOLUTE AUTO 0.04 K/mm3 (0.00-0.68); EOSINOPHILS PERCENT AUTO 0 % (0-6); Hematocrit 41.1 % (37.0-53.0); Hemoglobin 13.0 g/dL (13.5-17.5); IMMATURE GRAN ABSOLUTE AUTO 0.03 K/mm3 (0.00-0.10); IMMATURE GRAN PERCENT AUTO 0 % (0-1); LYMPHOCYTES ABSOLUTE AUTO 1.20 K/mm3 (0.84-5.20); LYMPHOCYTES PERCENT AUTO 11 % (21-46); MONOCYTES ABSOLUTE AUTO 1.00 K/mm3 (0.16-1.47); MONOCYTES PERCENT AUTO 9 % (4-13); Mean Corpuscular HGB Conc 31.6 g/dL (31.5-36.5); Mean Corpuscular Volume 93 fL (80-100); NEUTROPHILS ABSOLUTE AUTO 8.95 K/mm3 (1.96-9.15); NEUTROPHILS PERCENT AUTO 79 % (41-73); NRBC ABSOLUTE 0.00 K/mm3 (0.00-0.02); NRBC Auto 0.0 /100 WBC (0.0-0.2); Platelet Count 205 K/mm3 (150-400); RDW Coefficient Variation 13.4 % (11.7-14.2); RDW Standard Deviation 46.1 fL (35.1-46.3)
[2025-02-27 05:18] LABS: Anion Gap 12.0 mmol/L (3-11); Blood Urea Nitrogen 23.0 mg/dL (8-24); CO2, Blood 23.0 mmol/L (21-32); Calcium, Blood 8.6 mg/dL (8.5-10.1); Chloride, Blood 107.0 mmol/L (98-108); Creatinine, Blood 0.99 mg/dL (0.60-1.20); Glucose, Blood 119.0 mg/dL (70-99); Potassium, Blood 3.9 mmol/L (3.5-5.5); Sodium, Blood 138.0 mmol/L (136-145)
--- NOTE | 2025-02-27 07:12 | NUR ---
PT STABLE THROUGHOUT THE SHIFT. VITAL SIGNS WNL. PT AOX4, 1 ASSIST. PT ABLE TO USE CALL LIGHT APPROPRIATELY. PT HAS HAD LEFT BKA AND PROSTHETIC IS PRESENT, PT IN BED THROUGHOUT SHIFT. PT HAS URINARY INCONTINENCE AND HAS HAD DIFFICULTY USING THE URINAL WITH RT ARM RESTRICTED D/T ANGIO, PUREWICK PLACED PER PT REQUEST. RT TR BAND COMPLETELY RECOVERED AT 0130, NO S/S BLEEDING/HEMATOMA/OOZING. WRIST BOARD REMAINING IN PLACE TO REMIND PT TO NOT USE ARM TO BEAR WEIGHT.
[2025-02-27] MEDS ORDERED: Insulin Human Lispro 100 Units/ML 3ML Syringe SC SCH (07:30)
[2025-02-27] MEDS ORDERED: NS 1,000 ML IV SCH (08:00)
[2025-02-27] MEDS ORDERED: Insulin Glargine-Yfgn 100 Unit/mL 3 ML SYR SC SCH (09:00)
--- NOTE | 2025-02-27 09:46 | NUR ---
UPDATE: PT EXPRESSING RESERVATIONS REGARDING LEFT HEART CATH. DR RASMUSSEN NOTIFIED AND CAME TO TALK WITH PT REGARDING RISK. PT CONTINUNING TO DECLINE ANGIOGRAM. HOWEVER, COMPLAINING OF 5/10 CHEST PAIN. EKG OBTAINED, NITRO ORDERED. VITAL SIGNS REMAIN STABLE.
--- NOTE | 2025-02-27 10:02 | NUR ---
UPDATE: PT RATING CHEST PAIN 2/10 AFTER X1 OF NITRO. PT EXPRESSING WANTING TO BE DISCHARGED. HOSPITALIST NOTIFIED. PT EDUCATED ON RISK OF LEAVING AGAINST MEDICAL ADVICE. PT AGREEABLE TO STAY UNTIL SPOUSE ARRIVES.
--- NOTE | 2025-02-27 11:16 | NUR ---
UPDATE: PT AGREEING TO HEART CATH AT THIS TIME. HEADER SET UP OPERATOR NOTIFIED. PLAN FOR ANGIOGRAM AT 1200. REMAINS NPO.
[2025-02-27] MEDS ORDERED: Ondansetron HCl 2 MG / ML 2ML Vial IV PRN (12:35)
[2025-02-27] MEDS ORDERED: NS 2,000 ML IV ONE (13:22)
[2025-02-27] MEDS ORDERED: Verapamil HCL 2.5 MG/ML 2ML Injection ONE (13:22)
[2025-02-27] MEDS ORDERED: Nitroglycerin 2 MG/20 ML BTL ONE (13:23)
[2025-02-27] MEDS ORDERED: NS 250 ML IV ONE (13:23)
[2025-02-27] MEDS ORDERED: FentaNYL Citrate 50 MCG/ML 2 ML Injection ONE (13:24)
[2025-02-27] MEDS ORDERED: Midazolam HCl 1MG / ML 2ML Vial ONE (13:25)
--- NOTE | 2025-02-27 13:39 | NUR ---
UPDATE: PT TO DRAPERY WORKER
[2025-02-27] MEDS ORDERED: Ondansetron HCl 2 MG / ML 2ML Vial ONE (13:45)
[2025-02-27] MEDS ORDERED: Prochlorperazine Edisylate 10 mg Vial IV ONE (14:10)
[2025-02-27] MEDS ORDERED: Heparin Sodium 1000 Units/ML 10ML MDV ONE ×2 (14:31→15:16)
--- NOTE | 2025-02-27 16:09 | NUR ---
UPDATE: PT BACK FROM SEMICONDUCTOR EQUIPMENT TECHNICIAN. VSS. PT WITH R. RADIAL SITE, 12ML IN TR BAND. WOFE AT BEDSIDE.
--- NOTE | 2025-02-27 16:57 | NUR ---
SHIFT SUMMARY: PT ALERT AND ORIENTED X3-4, ABLE TO FOLLOW COMMANDS AND MAKE NEEDS KNOWN. ANXIOUS AT TIMES. STRENGTH EQUAL BILATERALLY. BP AND HR STABLE. AFEBRILE. SPO2 >96% ON ROOM AIR. LUNG SOUNDS DIM IN BASES. ABD DISTENDED, BOWEL SOUNDS +. PULSES PALPABLE. PT WITH L.BKA.PT WITH PUREWICK IN PLACE, CONNECTED TO LCS. PT WITH 4/10 CHEST PAIN PRIOR TO ANGIOGRAM. PT BACK FROM MEAT TEAM MEMBER APPROX 1555 WITH R. RADIAL SITE. STENT PLACED TO OM. 12ML IN TR BAND. MINIMAL OOZING NOTED. WILL START DEFLATING APPROX 1730. AT BEDSIDE, UPDATED ON PT PLAN OF CARE. BED IN LOW, CALL LIGHT IN REACH, WILL REPORT TO ONCOMING RN.
[2025-02-28 03:14] VITALS: BP 122/73
--- NOTE | 2025-02-28 04:09 | NUR ---
NOTIFIED BY Haileo THAT PT HAD 4 BEAT RUN OF VTACH @ 8320. PT ASYMPTOMATIC, WAS GETTING BLOOD DRAWN FOR MORNING LABS AT THE TIME. SPOKE WITH DR. FATIMA, ORDERED MAGNESIUM TO BE ADDED ONTO MORNING LABS. ORDER INPUT.
--- NOTE | 2025-02-28 04:34 | NUR ---
SHIFT SUMMARY. SHIFT HAS BEEN UNREMARKABLE. PT AOX4, PLEASANT, COOPERATIVE WITH CARE, ABLE TO MAKE NEEDS KNOWN. HAS BEEN ABLE TO REST COMFORTABLY THROUGHOUT SHIFT. VITALS HAVE REMAINED STABLE, CONTINUES TO RUN SINUS ON TELE. PUREWICK IN PLACE, CHANGED THIS MORNING AND FUNCTIONING INTENDED. COMPLAINED OF 2/10 PAIN LAST NIGHT WHICH WAS MANAGED VIA EMAR, NO COMPLAINTS OF PAIN SINCE. NO BM THIS SHIFT THUS FAR. RIGHT RADIAL SITE C/D/I WITH ARM BOARD IN PLACE. BED LOCKED IN LOWEST POSITION. CALL LIGHT LEFT WITHIN REACH. CONTINUING TO MONITOR.
[2025-02-28 06:17] LABS: BASOPHILS ABSOLUTE AUTO 0.04 K/mm3 (0.00-0.23); BASOPHILS PERCENT AUTO 0 % (0-2); EOSINOPHILS ABSOLUTE AUTO 0.07 K/mm3 (0.00-0.68); EOSINOPHILS PERCENT AUTO 1 % (0-6); Hematocrit 41.3 % (37.0-53.0); Hemoglobin 12.8 g/dL (13.5-17.5); IMMATURE GRAN ABSOLUTE AUTO 0.07 K/mm3 (0.00-0.10); IMMATURE GRAN PERCENT AUTO 1 % (0-1); LYMPHOCYTES ABSOLUTE AUTO 1.25 K/mm3 (0.84-5.20); LYMPHOCYTES PERCENT AUTO 9 % (21-46); MONOCYTES ABSOLUTE AUTO 1.65 K/mm3 (0.16-1.47); MONOCYTES PERCENT AUTO 11 % (4-13); Mean Corpuscular HGB Conc 31.0 g/dL (31.5-36.5); Mean Corpuscular Volume 96 fL (80-100); NEUTROPHILS ABSOLUTE AUTO 11.54 K/mm3 (1.96-9.15); NEUTROPHILS PERCENT AUTO 79 % (41-73); NRBC ABSOLUTE 0.00 K/mm3 (0.00-0.02); NRBC Auto 0.0 /100 WBC (0.0-0.2); Platelet Count 224 K/mm3 (150-400); RDW Coefficient Variation 13.3 % (11.7-14.2); RDW Standard Deviation 48.0 fL (35.1-46.3)
[2025-02-28 06:38] LABS: Anion Gap 11.0 mmol/L (3-11); Blood Urea Nitrogen 28.0 mg/dL (8-24); CO2, Blood 21.0 mmol/L (21-32); Calcium, Blood 8.5 mg/dL (8.5-10.1); Chloride, Blood 105.0 mmol/L (98-108); Creatinine, Blood 1.01 mg/dL (0.60-1.20); Glucose, Blood 103.0 mg/dL (70-99); Magnesium, Blood 2.3 mg/dL (1.6-2.4); Potassium, Blood 4.2 mmol/L (3.5-5.5); Sodium, Blood 133.0 mmol/L (136-145)
[2025-02-28] MEDS ORDERED: Furosemide 10 MG / ML 2ML Vial IV ONE (07:05)
[2025-02-28 07:42] VITALS: BP 99/66
[2025-02-28 09:09] VITALS: BP 122/70
[2025-02-28 12:40] VITALS: BP 114/59
[2025-02-28] MEDS ORDERED: ASPI81CH PO (15:48)
[2025-02-28] MEDS ORDERED: TICA90TA PO (15:49)
[2025-02-28 16:30] VITALS: BP 146/73
--- NOTE | 2025-02-28 17:00 | NUR ---
DISCHARGE SUMMARY PATIENT A/OX4, NO CP, NO SOB OR RESP DISTRESS, NO N/V OR DIZZINESS. DISCHARGE INSTRUCTIONS AND MEDICATIONS REVIEWED WITH PATIENT AND QUESTIONS ANSWERED. PATIENT VERBALIZES UNDERSTANDING. HE WILL SCHEDULE APT WITH DR IBARRA IN 1-2 WEEKS AND F/U WITH PCP. RETURN PRECAUTIONS REVIEWED WITH PATIENT. IS AT PHARMACY PICKING UP RX NOW AND WILL PROVIDE TRANSPORT HOME.
== END 2025-02-28 17:56 | disposition home or self-care (01) | DRG 323 ==
LOC: ER 11:01 → PCU 13:05 → ER 14:20 → PCU 14:57
PROVIDERS: Emergency Medicine; ADMIT Internal Medicine
PROC: 02F03ZZ Fragmentation in Coronary Artery, One Artery, Percutaneous Approach (ICD-10-PCS; principal; 2025-02-26)
PROC: 02703ZZ Dilation of Coronary Artery, One Artery, Percutaneous Approach (ICD-10-PCS; 2025-02-26)
PROC: B2111ZZ Fluoroscopy of Multiple Coronary Arteries using Low Osmolar Contrast (ICD-10-PCS; 2025-02-26)
PROC: B240ZZ3 Ultrasonography of Single Coronary Artery, Intravascular (ICD-10-PCS; 2025-02-26)
PROC: 027034Z Dilation of Coronary Artery, One Artery with Drug-eluting Intraluminal Device, Percutaneous Approach (ICD-10-PCS; 2025-02-27)
PROC: 02F03ZZ Fragmentation in Coronary Artery, One Artery, Percutaneous Approach (ICD-10-PCS; 2025-02-27)
PROC: 4A023N7 Measurement of Cardiac Sampling and Pressure, Left Heart, Percutaneous Approach (ICD-10-PCS; 2025-02-27)
PROC: B2111ZZ Fluoroscopy of Multiple Coronary Arteries using Low Osmolar Contrast (ICD-10-PCS; 2025-02-27)
PROC: B240ZZ3 Ultrasonography of Single Coronary Artery, Intravascular (ICD-10-PCS; 2025-02-27)
DX: T82.855A Stenosis of coronary artery stent, initial encounter (principal); I21.A9 Other myocardial infarction type; F33.9 Major depressive disorder, recurrent, unspecified; I50.42 Chronic combined systolic (congestive) and diastolic (congestive) heart failure; I11.0 Hypertensive heart disease with heart failure; J44.9 Chronic obstructive pulmonary disease, unspecified; E11.51 Type 2 diabetes mellitus with diabetic peripheral angiopathy without gangrene; G47.33 Obstructive sleep apnea (adult) (pediatric); E03.9 Hypothyroidism, unspecified; I25.5 Ischemic cardiomyopathy; E78.5 Hyperlipidemia, unspecified; E66.9 Obesity, unspecified; I25.10 Atherosclerotic heart disease of native coronary artery without angina pectoris; M79.7 Fibromyalgia; Y71.2 Prosthetic and other implants, materials and accessory cardiovascular devices associated with adverse incidents; E11.42 Type 2 diabetes mellitus with diabetic polyneuropathy; Z87.891 Personal history of nicotine dependence; Z86.73 Personal history of transient ischemic attack (TIA), and cerebral infarction without residual deficits; Z89.512 Acquired absence of left leg below knee; Z79.4 Long term (current) use of insulin; I25.2 Old myocardial infarction; Z95.5 Presence of coronary angioplasty implant and graft; Z86.718 Personal history of other venous thrombosis and embolism; Z98.1 Arthrodesis status; Z79.85 Long-term (current) use of injectable non-insulin antidiabetic drugs; Z79.890 Hormone replacement therapy; Z79.01 Long term (current) use of anticoagulants; Z79.02 Long term (current) use of antithrombotics/antiplatelets; Z79.84 Long term (current) use of oral hypoglycemic drugs; Z68.38 Body mass index [BMI] 38.0-38.9, adult
CPT/HCPCS: 36415; 71045; 76937; 80048; 80053; 82947; 83735; 84484; 85025; 85347; 85520; 85610; 85730; 92920; 92972; 92978; 93005; 93010; 93454; 93458; 96374; 99152; 99153; 99285-25; A9270; C1725; C1753; C1761; C1769; C1874; C1887; C1894; C8929; C9600; J1644; J1815; J1938; J2250; J2371; J2405; J3010; J7030; J7040; J7050; Q9957; Q9967

== ENCOUNTER 2025-06-25 11:03 | Inpatient (IN) | payer OTHER ==
[~2025-06-25] VITALS: Ht 172.7 cm; Wt 103.8 kg
[2025-06-25] VITALS (38 sets, daily range): BP systolic 66–115; BP diastolic 49–69
[~2025-06-25 11:03] MED LIST changes: +ASPI81CH PO; +CARV6.25 PO; +TICA90TA PO
[2025-06-25] MEDS ORDERED: Ondansetron HCl 2 MG / ML 2ML Vial IV ONE (11:35)
[2025-06-25] MEDS ORDERED: NS 500 ML IV SCH (11:35)
[2025-06-25 11:58] LABS: pH Blood Venous 7.40 (7.34-7.37)
[2025-06-25 11:59] LABS: BASOPHILS ABSOLUTE AUTO 0.05 K/mm3 (0.00-0.23); BASOPHILS PERCENT AUTO 0 % (0-2); EOSINOPHILS ABSOLUTE AUTO 0.03 K/mm3 (0.00-0.68); EOSINOPHILS PERCENT AUTO 0 % (0-6); Hematocrit 40.4 % (37.0-53.0); Hemoglobin 13.0 g/dL (13.5-17.5); IMMATURE GRAN ABSOLUTE AUTO 0.09 K/mm3 (0.00-0.10); IMMATURE GRAN PERCENT AUTO 1 % (0-1); LYMPHOCYTES ABSOLUTE AUTO 0.55 K/mm3 (0.84-5.20); LYMPHOCYTES PERCENT AUTO 3 % (21-46); MONOCYTES ABSOLUTE AUTO 1.01 K/mm3 (0.16-1.47); MONOCYTES PERCENT AUTO 6 % (4-13); Mean Corpuscular HGB Conc 32.2 g/dL (31.5-36.5); Mean Corpuscular Volume 90 fL (80-100); NEUTROPHILS ABSOLUTE AUTO 15.36 K/mm3 (1.96-9.15); NEUTROPHILS PERCENT AUTO 90 % (41-73); NRBC ABSOLUTE 0.00 K/mm3 (0.00-0.02); NRBC Auto 0.0 /100 WBC (0.0-0.2); Platelet Count 263 K/mm3 (150-400); RDW Coefficient Variation 15.4 % (11.7-14.2); RDW Standard Deviation 51.3 fL (35.1-46.3)
[2025-06-25 12:31] LABS: Alanine Aminotransfer (ALT/SGP 59.0 U/L (12-78); Albumin, Blood 3.2 g/dL (3.4-5.0); Albumin/Globulin Ratio 0.8 (0.8-1.8); Anion Gap 10.0 mmol/L (3-11); Aspartate Aminotrans (AST/SGOT 43.0 U/L (12-37); Bilirubin, Total 0.9 mg/dL (0.1-1.0); Blood Urea Nitrogen 22.0 mg/dL (8-24); CO2, Blood 24.0 mmol/L (21-32); Calcium, Blood 8.7 mg/dL (8.5-10.1); Chloride, Blood 109.0 mmol/L (98-108); Creatinine, Blood 1.05 mg/dL (0.60-1.20); Globulin, Blood 3.8 g/dL (2.2-4.0); Glucose, Blood 212.0 mg/dL (70-99); Magnesium, Blood 2.0 mg/dL (1.6-2.4); Potassium, Blood 4.5 mmol/L (3.5-5.5); Sodium, Blood 138.0 mmol/L (136-145); Total Protein, Blood 7.0 g/dL (6.4-8.2)
[2025-06-25 12:39] LABS: Influenza A, PCR NEGATIVE (NEGATIVE); Influenza B, PCR NEGATIVE (NEGATIVE); Resp Syncytial Virus, PCR NEGATIVE (NEGATIVE); SARS-Cov-2 (COVID-19) PCR, MMC NEGATIVE (NEGATIVE)
[2025-06-25 12:47] LABS: Source, Urine Clean Catch
[2025-06-25] MEDS ORDERED: CefTRIAXone Sodium 1,000 MG in NS 50 ML IV ONE (12:50)
[2025-06-25 12:52] LABS: Bilirubin, Urine Neg (Neg); Color, Urine Yellow (P-Yellow); Glucose Qualitative, Urine 4+ (Neg); Ketones, Urine Neg (Neg); Leukocyte Esterase, Urine Neg (Neg); Protein, Urine 2+ (Neg); Specific Gravity, Urine 1.010 (1.003-1.022); Urobilinogen, Urine NORM (Normal)
[2025-06-25 13:06] LABS: Red Blood Cells, Urine 0-2 /hpf (0-2); White Blood Cells, Urine 0-2 /hpf (0-5)
[2025-06-25] MEDS ORDERED: OZEMPIC2 MG/0.75 SC (13:20)
[2025-06-25] MEDS ORDERED: LOSARTAN POTASS25 M2 PO (13:20)
[2025-06-25] MEDS ORDERED: SPIRONOLACTONE25 MG PO (13:20)
[2025-06-25] MEDS ORDERED: ARIPIPRAZOLE15 M3 PO (13:21)
[2025-06-25] MEDS ORDERED: NS 250 ML IV SCH (13:25)
--- NOTE | 2025-06-25 16:27 | NUR ---
Pt arrives to ICU room 12 at 1547. Pt is alert and oriented x3, believes he is in [place]. Pt falls to sleep immediately when not being stimulated. PT october to bedside. Pt hypotensive on arrival, levophed initiated to maintain map>65 as ordered. HR 90s, sinus per continuous cardiac exercise physiologist. Pt 92% on room air, lungs dim t/o. Pupils equal and reactive bilaterally. Pt has bka to l. leg. Small wound to lateral l. knee. Wound is being treated by wound care per . Photos in chart. Dr. Camarena updated on pt status and order for code status requested. Pt wishes to be full code per . PLan of care ongoing.
[2025-06-25 16:29] LABS: Anti-Xa UFH, PHA Monitoring <0.10 IU/mL; Prothrombin Time Results 11.9 Sec (9.7-11.5)
[2025-06-25] MEDS ORDERED: ENTRESTO 24 MG1 EAC3 PO (16:38)
[2025-06-25] MEDS ORDERED: METOPROLOL SUCC25 MG PO (16:40)
[2025-06-25] MEDS ORDERED: Heparin Sodium 5000 Units/ML 1ML MDV IV ONE (16:50)
[2025-06-25] MEDS ORDERED: Heparin Sodium,Porcine/0.5 NS 500 ML IV SCH (16:50)
[2025-06-25] MEDS ORDERED: Ondansetron HCl 2 MG / ML 2ML Vial IV PRN (17:00)
[2025-06-25] MEDS ORDERED: FLU VACC TS2025(65UP)/MF59C/PF 45 MCG/0.5 ML SYRINGE IM SCH (17:05)
[2025-06-25] MEDS ORDERED: CefTRIAXone Sodium 1,000 MG in NS 100 ML IV ONE (17:30)
[2025-06-25] MEDS ORDERED: Vancomycin (Pharmacy Consult) IV SCH (18:40)
[2025-06-25] MEDS ORDERED: Ipratropium/Albuterol SulF 2.5-0.5MG/3 ML Amp INH SCH (18:45)
[2025-06-25] MEDS ORDERED: Albuterol 2.5 MG/3 ML VIAL INH PRN (18:45)
[2025-06-25 20:36] LABS: U Amphetamine Screen Not Detected; U Barbiturate Screen Not Detected; U Benzodiazapine Screen DETECTED; U Buprenorphine Screen Not Detected; U Cannabinoids Screen Not Detected; U Cocaine Screen Not Detected; U Methadone Screen Not Detected; U Methamphetamine Screen Not Detected; U Opiates Screen Not Detected; U Oxycodone Screen DETECTED; U Phencyclidine Screen Not Detected
[2025-06-25] MEDS ORDERED: Lactobacil 2-S.Thermo-Bifido 1 1 Cap PO SCH (21:00)
[2025-06-25] MEDS ORDERED: Insulin Human Lispro 100 Units/ML 3ML Syringe SC SCH (21:00)
[2025-06-26] VITALS (30 sets, daily range): BP systolic 95–131; BP diastolic 59–73
[2025-06-26] MEDS ORDERED: Dose Adjust by Pharmacy XX STA ×3 (01:05→21:33)
--- NOTE | 2025-06-26 05:18 | NUR ---
SHIFT SUMMARY PT SLEEPING T/O THE NIGHT, WHEN AWAKE HE IS ALERT AND ORIENTED X4, ABLE TO MAKE NEEDS KNOWN, AND FOLLOWS COMMANDS. PT ON RA T/O THE NIGHT WITH SPO2 >90%. SBP IN THE 90-130'S WITH MAP >65 WHILE TITRATING LEVOPHED DOWN, HR IN 90-100'S, NO C/O OF CHEST PAIN/PRESSURE. PT HAD MEDIUM BM THIS SHIFT, MALE WICKING SYSTEM IN PLACE TO SUCTION. PT HAS HEPARIN GTT INFUSING, LEVOPHED GTT ON SB, SALINE LOCKED IN REMAINING PIV. BED IN LOWEST POSITION, CALL LIGHT WITHIN REACH, NO IMMEDIATE CONCERNS NOTED AT THIS TIME, WILL REPORT TO ONCOMING RN
[2025-06-26 05:36] LABS: BASOPHILS ABSOLUTE AUTO 0.06 K/mm3 (0.00-0.23); BASOPHILS PERCENT AUTO 0 % (0-2); EOSINOPHILS ABSOLUTE AUTO 0.01 K/mm3 (0.00-0.68); EOSINOPHILS PERCENT AUTO 0 % (0-6); Hematocrit 38.5 % (37.0-53.0); Hemoglobin 11.9 g/dL (13.5-17.5); IMMATURE GRAN ABSOLUTE AUTO 0.11 K/mm3 (0.00-0.10); IMMATURE GRAN PERCENT AUTO 1 % (0-1); LYMPHOCYTES ABSOLUTE AUTO 1.56 K/mm3 (0.84-5.20); LYMPHOCYTES PERCENT AUTO 7 % (21-46); MONOCYTES ABSOLUTE AUTO 1.57 K/mm3 (0.16-1.47); MONOCYTES PERCENT AUTO 7 % (4-13); Mean Corpuscular HGB Conc 30.9 g/dL (31.5-36.5); NEUTROPHILS ABSOLUTE AUTO 19.31 K/mm3 (1.96-9.15); NEUTROPHILS PERCENT AUTO 85 % (41-73); NRBC ABSOLUTE 0.00 K/mm3 (0.00-0.02); NRBC Auto 0.0 /100 WBC (0.0-0.2); Platelet Count 238 K/mm3 (150-400); RDW Coefficient Variation 15.9 % (11.7-14.2); RDW Standard Deviation 55.5 fL (35.1-46.3)
[2025-06-26 05:44] LABS: Mean Corpuscular Volume 95 fL (80-100)
[2025-06-26] MEDS ORDERED: Levothyroxine Sodium 0.175 MG TAB PO SCH (06:00)
[2025-06-26 06:40] LABS: Alanine Aminotransfer (ALT/SGP 53.0 U/L (12-78); Albumin, Blood 3.0 g/dL (3.4-5.0); Albumin/Globulin Ratio 0.8 (0.8-1.8); Anion Gap 12.0 mmol/L (3-11); Aspartate Aminotrans (AST/SGOT 83.0 U/L (12-37); Bilirubin, Total 0.7 mg/dL (0.1-1.0); Blood Urea Nitrogen 26.0 mg/dL (8-24); CO2, Blood 22.0 mmol/L (21-32); Calcium, Blood 8.6 mg/dL (8.5-10.1); Chloride, Blood 110.0 mmol/L (98-108); Creatinine, Blood 1.21 mg/dL (0.60-1.20); Globulin, Blood 3.8 g/dL (2.2-4.0); Glucose, Blood 153.0 mg/dL (70-99); Potassium, Blood 4.5 mmol/L (3.5-5.5); Sodium, Blood 139.0 mmol/L (136-145); Total Protein, Blood 6.8 g/dL (6.4-8.2)
[2025-06-26] MEDS ORDERED: Insulin Glargine-Yfgn 100 Unit/mL 3 ML SYR SC SCH (09:00)
[2025-06-26] MEDS ORDERED: CefTRIAXone Sodium 2,000 MG in NS 100 ML IV SCH (09:00)
--- NOTE | 2025-06-26 09:48 | NUR ---
AM NOTE... ASSUMED CARE OF PT AT 0700, PT IS A&Ox4. PT DENIES ANY CHEST PAIN/PRESSURE N/V OR SOB. PT IS IN SR IN THE 90'S BP IS STABLE WITH SBPs 110'S-90'S MAPS>65. NO SWELLING OR EDEMA NOTED ON THIS ASSESSMENT. L/S ARE DIM T/O PT IS ON RA WITH O2 SATS>90%. BT PRESENT AND NORMOACTIVE, ABD IS LARGE WITH MINIMAL DISTENTION, SOFT AND NONTENDER TO PALPATION. PT HAS A MALE PURWICK IN PLACE TO LOW SUCTION WITH YELLOW URINE NOTED. 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 EKG DONE PER ORDERS. CALL LIGHT IN REACH.
[2025-06-26] MEDS ORDERED: Heparin Sodium 5000 Units/ML 1ML MDV IV ONE (13:05)
[2025-06-26] MEDS ORDERED: NS 1,000 ML IV SCH (16:00)
--- NOTE | 2025-06-26 17:00 | NUR ---
CALLED DR. ZAPATA ABOUT PUPIL PATIENT RIGHT PUPIL IS LARGER THAN LEFT PUPIL VITALS STABLE WITH NO OTHER NEURO DEFICITS CONFIRMED WITH ICU THAT THEY WERE EQAUL BEFORE TRANSFERED TO PCU. ALSO PATIENT HAD HEADACHE THAT IMPROVED WITH PRN TYLENOL. NO NEW ORDERS RECIEVED.
--- NOTE | 2025-06-26 18:00 | NUR ---
SHIFT SUMMARY PATIENT AOX4 ABLE TO MAKE NEEDS KNOWN DENIES CP AND SOB TOLERATING HIS MEALS AND VOIDING IN THE PUREWICK HE HAS NOT HAD A BM SINCE HE HAS BEEN IN PCU. HIS R PUPIL IS LARGER THAN THE LEFT PUPIL WHICH THE PATIENT AND SAY IS NEW. PATIENT HAD NO OTHER ACUTE NEURO DEFICITS. PATIENT CAME FROM ICU AND ICU NURSE SAID PUPILS WERE EQUAL IN ICU. DR ZAPATA WAS NOTIFIED OF THE CHANGE AND NO ORDERS RECEIVED. PATIENT AWARE OF CARDIAC CATH TOMORROW AND WILL BE NPO AFER MIDNIGHT.
[2025-06-27 04:20] VITALS: BP 118/65
[2025-06-27 05:14] LABS: BASOPHILS ABSOLUTE AUTO 0.04 K/mm3 (0.00-0.23); BASOPHILS PERCENT AUTO 0 % (0-2); EOSINOPHILS ABSOLUTE AUTO 0.09 K/mm3 (0.00-0.68); EOSINOPHILS PERCENT AUTO 1 % (0-6); Hematocrit 32.9 % (37.0-53.0); Hemoglobin 10.8 g/dL (13.5-17.5); IMMATURE GRAN ABSOLUTE AUTO 0.04 K/mm3 (0.00-0.10); IMMATURE GRAN PERCENT AUTO 0 % (0-1); LYMPHOCYTES ABSOLUTE AUTO 1.12 K/mm3 (0.84-5.20); LYMPHOCYTES PERCENT AUTO 8 % (21-46); MONOCYTES ABSOLUTE AUTO 1.00 K/mm3 (0.16-1.47); MONOCYTES PERCENT AUTO 7 % (4-13); Mean Corpuscular HGB Conc 32.8 g/dL (31.5-36.5); Mean Corpuscular Volume 92 fL (80-100); NEUTROPHILS ABSOLUTE AUTO 12.71 K/mm3 (1.96-9.15); NEUTROPHILS PERCENT AUTO 85 % (41-73); NRBC ABSOLUTE 0.00 K/mm3 (0.00-0.02); NRBC Auto 0.0 /100 WBC (0.0-0.2); Platelet Count 208 K/mm3 (150-400); RDW Coefficient Variation 15.9 % (11.7-14.2); RDW Standard Deviation 53.6 fL (35.1-46.3)
[2025-06-27 05:51] LABS: Magnesium, Blood 2.0 mg/dL (1.6-2.4)
[2025-06-27 05:54] LABS: Alanine Aminotransfer (ALT/SGP 43 U/L (12-78); Albumin, Blood 2.6 g/dL (3.4-5.0); Albumin/Globulin Ratio 0.7 (0.8-1.8); Anion Gap 9 mmol/L (3-11); Aspartate Aminotrans (AST/SGOT 76 U/L (12-37); Bilirubin, Total 0.6 mg/dL (0.1-1.0); Blood Urea Nitrogen 25 mg/dL (8-24); CO2, Blood 21 mmol/L (21-32); Calcium, Blood 8.4 mg/dL (8.5-10.1); Chloride, Blood 109 mmol/L (98-108); Creatinine, Blood 1.02 mg/dL (0.60-1.20); Globulin, Blood 3.7 g/dL (2.2-4.0); Glucose, Blood 113 mg/dL (70-99); Potassium, Blood 4.3 mmol/L (3.5-5.5); Sodium, Blood 135 mmol/L (136-145); Total Protein, Blood 6.3 g/dL (6.4-8.2); Vancomycin, Trough 23.2 ug/mL (5.0-10.0)
[2025-06-27] MEDS ORDERED: Dose Adjust by Pharmacy XX STA (06:00)
--- NOTE | 2025-06-27 06:30 | NUR ---
SHIFT SUMMARY PATIENT A/OX4. DENIED CP DURING SHIFT. VSS. COOPERATIVE WITH ALL CARE. FREQUENT TURNING. PATIENT ABLE TO MOVE IND IN BED. VOIDING WITH PURE WICK IN PLACE. NPO AFTER MIDNIGHT. NO ACUTE EVENTS OVERNIGHT. PLAN OF CARE ONGOING.
[2025-06-27] MEDS ORDERED: Furosemide 10 MG / ML 2ML Vial IV ONE (07:15)
[2025-06-27 07:48] VITALS: BP 111/64
[2025-06-27] MEDS ORDERED: NS 250 ML IV ONE (10:55)
[2025-06-27] MEDS ORDERED: Heparin Sodium 1000 Units/ML 10ML MDV ONE ×2 (10:55→12:39)
[2025-06-27] MEDS ORDERED: NS 1,000 ML IV ONE ×2 (10:55→10:56)
[2025-06-27] MEDS ORDERED: Verapamil HCL 2.5 MG/ML 2ML Injection ONE (10:55)
[2025-06-27] MEDS ORDERED: Nitroglycerin 2 MG/20 ML BTL ONE (10:56)
[2025-06-27] MEDS ORDERED: FentaNYL Citrate 50 MCG/ML 2 ML Injection ONE (11:40)
[2025-06-27] MEDS ORDERED: Midazolam HCl 1MG / ML 2ML Vial ONE (11:40)
[2025-06-27 13:59] VITALS: BP 115/52
[2025-06-27 16:34] VITALS: BP 131/85
--- NOTE | 2025-06-27 18:01 | NUR ---
THIS RN TO TAKE OVER PRIMARY CARE OF PT 1630-APPROX 1900. NO ACUTE CHANGES. TR BAND RECOVERED, NO BRUISING, SWELLING, OR BLEEDING NOTED. ARM BOARD IN PLACE. PT CONFIRMED WITH DR RASMUSSEN PLAN OF CARE TO BE TRANSFERED. CALL LIGHT IN REACH, CARE CONTINUES
[2025-06-27 20:00] VITALS: BP 127/66
[2025-06-27 23:27] VITALS: BP 124/72
[2025-06-28 03:29] VITALS: BP 111/65
--- NOTE | 2025-06-28 04:14 | NUR ---
SHIFT SUMMARY: PATIENT IS A&OX4 AND IS ABLE TO MAKE HIS NEEDS KNOWN AND CALLS APPROPRIATELY. VITALS ARE STABLE AND HAS BEEN ON ROOM AIR WITH >90% SPO2. Xencor Mayito'JOSE ANTONIO REPORTS PATIENT HAS BEEN IN SINUS RHYTHM IN THE 80'S-90'S BPM. HEPARIN GTT STARTED YESTERDAY AT 2230 - 4HR POST TR BAND REMOVAL ON RIGHT RADIAL SITE - PER PHARMACY PATIENTS HEPARIN GTT WAS STARTED AND CONTINUES TO BE AT 31.9ML/HR PER EMAR. RIGHT RADIAL SITE HAS TEGADERM WITH NO BRUISING OR ACTIVE BLEEDING NOTED THROUGHOUT TONIGHT. PATIENT IS ABLE TO WIGGLE ALL FINGERS AND LEFT FOOT TOES - HX OF RIGHT BKA. MALE PUREWICK IN PLACE WITH YELLOW URINE OUTPUT IN WALL CANESTER WITH CONTINUOUS LOW WALL SUCTION. PATIENT IS CURRENTLY LAYING IN BED WITH CALL LIGHT IN REACH.
[2025-06-28 05:11] LABS: BASOPHILS ABSOLUTE AUTO 0.03 K/mm3 (0.00-0.23); BASOPHILS PERCENT AUTO 0 % (0-2); EOSINOPHILS ABSOLUTE AUTO 0.05 K/mm3 (0.00-0.68); EOSINOPHILS PERCENT AUTO 0 % (0-6); Hematocrit 33.5 % (37.0-53.0); Hemoglobin 10.8 g/dL (13.5-17.5); IMMATURE GRAN ABSOLUTE AUTO 0.10 K/mm3 (0.00-0.10); IMMATURE GRAN PERCENT AUTO 1 % (0-1); LYMPHOCYTES ABSOLUTE AUTO 1.12 K/mm3 (0.84-5.20); LYMPHOCYTES PERCENT AUTO 7 % (21-46); MONOCYTES ABSOLUTE AUTO 1.03 K/mm3 (0.16-1.47); MONOCYTES PERCENT AUTO 7 % (4-13); Mean Corpuscular HGB Conc 32.2 g/dL (31.5-36.5); Mean Corpuscular Volume 91 fL (80-100); NEUTROPHILS ABSOLUTE AUTO 12.89 K/mm3 (1.96-9.15); NEUTROPHILS PERCENT AUTO 85 % (41-73); NRBC ABSOLUTE 0.00 K/mm3 (0.00-0.02); NRBC Auto 0.0 /100 WBC (0.0-0.2); Platelet Count 202 K/mm3 (150-400); RDW Coefficient Variation 16.1 % (11.7-14.2); RDW Standard Deviation 54.0 fL (35.1-46.3)
[2025-06-28] MEDS ORDERED: Dose Adjust by Pharmacy XX STA ×2 (05:45→13:54)
--- NOTE | 2025-06-28 05:51 | NUR ---
HEPARIN GTT RATE CHANGED TO NOW 20 UNITS/KG/HR OR 33.6ML/HR PER PHARMACY'S ORDERS.
[2025-06-28 07:18] VITALS: BP 128/79
[2025-06-28] MEDS ORDERED: Ipratropium/Albuterol SulF 2.5-0.5MG/3 ML Amp INH PRN (10:55)
[2025-06-28] MEDS ORDERED: Insulin Glargine-Yfgn 100 Unit/mL 3 ML SYR SC SCH (11:00)
[2025-06-28 12:06] VITALS: BP 123/63
[2025-06-28 15:24] VITALS: BP 117/57
--- NOTE | 2025-06-28 19:20 | NUR ---
SHIFT SUMMARY CASE PARNELL ABLE TO MAKE NEEDS KNOWN DENIES CP PAIN BUT DOES HAVE INTERMITTENT SOB GETTING PRN TREATMENTS SATS >90% RA. ON HEP GTT VITALS ARE STABLE TOLERATING HIS MEALS WAITING TO BE TRANSFERED TO [facility]
[2025-06-28 19:33] VITALS: BP 111/67
[2025-06-29] VITALS (55 sets, daily range): BP systolic 89–164; BP diastolic 56–105
[2025-06-29 03:13] LABS: BASOPHILS ABSOLUTE AUTO 0.04 K/mm3 (0.00-0.23); BASOPHILS PERCENT AUTO 0 % (0-2); EOSINOPHILS ABSOLUTE AUTO 0.17 K/mm3 (0.00-0.68); EOSINOPHILS PERCENT AUTO 1 % (0-6); Hematocrit 36.3 % (37.0-53.0); Hemoglobin 11.2 g/dL (13.5-17.5); IMMATURE GRAN ABSOLUTE AUTO 0.09 K/mm3 (0.00-0.10); IMMATURE GRAN PERCENT AUTO 1 % (0-1); LYMPHOCYTES ABSOLUTE AUTO 1.13 K/mm3 (0.84-5.20); LYMPHOCYTES PERCENT AUTO 9 % (21-46); MONOCYTES ABSOLUTE AUTO 0.93 K/mm3 (0.16-1.47); MONOCYTES PERCENT AUTO 8 % (4-13); Mean Corpuscular HGB Conc 30.9 g/dL (31.5-36.5); Mean Corpuscular Volume 95 fL (80-100); NEUTROPHILS ABSOLUTE AUTO 10.08 K/mm3 (1.96-9.15); NEUTROPHILS PERCENT AUTO 81 % (41-73); NRBC ABSOLUTE 0.00 K/mm3 (0.00-0.02); NRBC Auto 0.0 /100 WBC (0.0-0.2); Platelet Count 201 K/mm3 (150-400); RDW Coefficient Variation 15.9 % (11.7-14.2); RDW Standard Deviation 55.8 fL (35.1-46.3)
--- NOTE | 2025-06-29 04:09 | NUR ---
ACUTE RESPIRATORY DISTRESS 06/29/25 AT 0409 SITUATION: PATIENT USED CALL LIGHT. STREET CONTRACTOR PAVEL RESPONDED AND REPORTED PATIENT STATED, "I FEEL LIKE I CAN'T BREATHE." ASSESSMENT UPON STREET CONTRACTOR ARRIVAL: -PATIENT FOUND WITH OPEN FACE MASK OXYGEN OFF AND RESTING ON BEDSIDE TABLE. -PATIENT DECLINED WANTING THE OPEN FACE MASK OXYGEN TO BE BACK ON, STATING "IT MAKES IT WORSE." -PATIENTS CONTINUOUS SPO2 MONITOR READ 91% ON ROOM AIR. -PATIENTS HEAD OF BED POSITIONED <30 DEGREES THAN PREVIOUSLY REPOSITIONED BY THIS NURSE AND STREET CONTRACTOR ABOUT 1 HOUR PRIOR TO THIS EVENT. -PATIENT NOTED TO BE DIAPHORETIC, PALE, AND TACHYCARDIC PER TELE MONITOR BEING BETWEEN 100'S-110'S BPM (NONE OF THESE SYMPTOMS PRESENT 1 HOUR PRIOR). -PATIENT DENIED CHEST PAIN. -PATIENTS BP LOWERED (SEE VITAL SIGNS CHARTED). INTERVENTIONS: -STREET CONTRACTOR ELEVATED HOB TO APPROX. 60 DEGREES. -STREET CONTRACTOR NOTIFIED PCU PROCUREMENT AGENT SAIGE AND THIS RN WHO ENTERED THE ROOM IMMEDIATELY WITH MOTOR ASSEMBLER. -PATIENT PLACED ON 4L OXYGEN VIA NC WITH SPO2 IMPROVED TO >90%. FURTHER ACTIONS: -STAT EKG OBTAINED. -PROVIDER DR. PINTO NOTIFIED AND ARRIVED AT BEDSIDE. -ICU PROCUREMENT AGENT FLOYD VERDUGO AND RESPIRATORY THERAPIST LORENZO ALSO NOTIFIED AND PRESENT AT BEDSIDE. -THIS RN INFORMED DR. PINTO OF PATIENT'S RECENT ECHO FROM 06/25/25 SHOWING EF OF 25-30% AND GAVE A BRIEF PATIENT REPORT. -DR. PINTO REVIEWED EKG, ORDERED LAB WORK, AND A CHEST X-RAY. POST-INTERVENTIONS/FURTHER ACTIONS GIVEN TO PATIENT OBSERVATIONS: -IT WAS NOTED THE PATIENT HAD AGAIN LOWERED HIS HOB INDEPENDANTLY <30 DEGREES. -AFTER INTERVENTIONS AND REPOSITIONING, PATIENTS FACIAL COLOR IMPROVED, DIAPHORESIS RESOLVED, HR DECREASED TO THE 70'S-80'S BPM, AND BP INCREASED (SEE VIAL SIGNS CHARTED). -PATIENT REPORTED, "I FEEL A LOT BETTER." EDUCATION PROVIDED TO PATIENT: -REINFORCED IMPORTANCE OF REMAINING UPRIGHT AND WITH HOB AT LEAST >45 DEGREES AND TO AVOID HAVING HOB <45 DEGREES DUE TO HX OF CHF AND RISK OF DYSPNEA. -EDUCATED PATIENT TO AVOID ROLLING FULLY ONTO HIS RIGHT SIDE IT CAN WORSEN DYSPNEA SYMPTOMS. -PATIENT VERBALIZED UNDERSTANDING OF EDUCATION. CURRENT STATUS OF 499: -PATIENT IS RESTING IN BED, HOB AT LEAST 60 DEGREES, CALL LIGHT WITHIN REACH. -PATIENT IS CURRENTLY ON 4L OXYGEN VIA NC WITH >90% SPO2. -AWAITING LABS AND CHEST X-RAY RESULTS.
[2025-06-29 04:25] LABS: pH Blood Venous 7.45 (7.34-7.37)
[2025-06-29] MEDS ORDERED: Dose Adjust by Pharmacy XX STA (04:47)
[2025-06-29 04:49] LABS: Alanine Aminotransfer (ALT/SGP 41.0 U/L (12-78); Albumin, Blood 2.6 g/dL (3.4-5.0); Albumin/Globulin Ratio 0.6 (0.8-1.8); Anion Gap 12.0 mmol/L (3-11); Aspartate Aminotrans (AST/SGOT 62.0 U/L (12-37); Bilirubin, Total 0.9 mg/dL (0.1-1.0); Blood Urea Nitrogen 30.0 mg/dL (8-24); CO2, Blood 20.0 mmol/L (21-32); Calcium, Blood 8.8 mg/dL (8.5-10.1); Chloride, Blood 106.0 mmol/L (98-108); Creatinine, Blood 1.01 mg/dL (0.60-1.20); Globulin, Blood 4.4 g/dL (2.2-4.0); Glucose, Blood 130.0 mg/dL (70-99); Potassium, Blood 4.2 mmol/L (3.5-5.5); Sodium, Blood 134.0 mmol/L (136-145); Total Protein, Blood 7.0 g/dL (6.4-8.2)
--- NOTE | 2025-06-29 06:01 | NUR ---
SHIFT SUMMARY: PATIENT HAD AN ACUTE RESPIRATORY DISTRESS THIS MORNING (SEE PREVIOUS NURSE NOTE). PATIENT IS A&OX4. TELE SHOWS SINUS RHYTHM WITH 90'S BPM. PATIENT IS CURRENTLY ON 4L OXYGEN VIA NC WITH >90% SPO2. PATIENT HAS DENIED PAIN THROUGHOUT SHIFT. HEPARIN GTT CURRENTLY RUNNING AT 38.6ML/HR PER EMAR. MALE PUREWICK IN PLACE WITH LOW CONTINUOUS WALL SUCTION AND DARK YELLOW URINE OUTPUT. Q2H REPOSITIONING. PATIENT IS TOLERATING PO INTAKE AND IS PASSING FLATUS BUT NO BM THIS SHIFT. PATIENT IS LAYING IN BED WITH HOB AT LEAST AT 60 DEGREES WITH CALL LIGHT IN REACH. PATIENT IS ABLE TO MAKE HIS NEEDS KNOWN AND CALLS APPRORPRIATELY.
--- NOTE | 2025-06-29 10:53 | NUR ---
MORNING NOTE PT IS A&0 X4, PUREWICK SET UP TO SUCTION. Q2 TURNS. COOPERATIVE WITH CARE. SATTING > 93% ON 4L-6L. PT HAS NOT BEEN OUT OF BED THIS SHIFT DUE TO INCREASED SOB/WORK OF BREATHING AND ACCESSORY MUSCLE USE. ON TELE SR 90s WITH STABLE BP. PT DENIES CHEST PAIN/PRESSURE AT THIS TIME. DR. ZAPATA CALLED, DISCUSSED EPISODE OF INCREASED SOB, DIAPHORESIS, PALLOR, AND ELEVATED TROPONIN THAT PT HAD AROUND 0400, PER REPORT. ORDERS PLACED FOR BNP DRAW AND LASIX. DISCUSSED X- RAY, O2 REQUIREMENTS, AND PT AWAITING BED AT [facility]. HE ALSO WANTED DR. CASTILLO TO SEE THE PATIENT. DR. CASTILLO CAME TO SEE PT AND . ORDERS PLACED FOR BIPAP, STAT LACTIC DRAW, PT WILL TRANSFER TO ICU DUE TO WORSENING OF SYMPTOMS AND SYMPTOMS RESEMBLING THOSE OF HIS NSTEMI PRIOR TO ADMISSION. DR. CASTILLO CALLED [facility], BED EXPECTED TO BE AVAILABLE IN ABOUT 4 HOURS. PT TO BE TRANSFERRED [facility]IA [facility] UNLESS SYMPTOMS WORSEN, IN WHICH CASE HE IS TO GO BY HELICOPTER. PT IS CURRENTLY ON THE BIPAP 04/23 @40% AND WILL BE TRANSFERING TO ICU 12. SEE NOTES FOR UPDATES.
--- NOTE | 2025-06-29 12:44 | NUR ---
TRANSFER TO ICU PT ARRIVED TO ICU 12 AT 1150 VIA BED. PT IS AWAKE, ALERT, AND ORIENTED UPON ARRIVAL. PT SLID OVER TO NEW BED. PT IS SLOW TO RESPOND, BUT ANSWERS ALL QUESTIONS APPROPRIATELY AND IS ABLE TO MAKE NEEDS KNOWN. PT DENIES SOB AT THIS TIME. PT ON 4L O2 NC. PT DENIES CHEST PAIN, BUT REPORTS CHEST PRESSURE THAT IS SIMILAR TO PRIOR FEELING. PT MOVES ALL EXTREMITIES INDEPENDENTLY. PT WITH LEFT BKA. PT WITH HEPARIN GTT INFUSING AT 23 UNITS/KG/HR. LS CLEAR T/O. PT WITH PUREWICK IN PLACE, PT INCONTINENT AT BASELINE. PT SPOUSE AT BEDSIDE AT THIS TIME. AWAITING BED ASSIGNMENT FOR TRANSFER FOR [facility]. WILL CONTINUE TO MONITOR.
[2025-06-29 13:52] LABS: Vancomycin, Trough 19.3 ug/mL (5.0-10.0)
--- NOTE | 2025-06-29 14:49 | NUR ---
"Spiritual Care | Nurse/Family request Pt. is awake in bed and welcomes my visit. Spouse is at bedside. Pt. is pleasant. Facilitated a life review and listened with empathy and interest. Pt. verbalized some critical details regarding his need for a higher level of cardiac care. Spouse displays some subtle evidence of anxiety or the Ptas. care plan. Seek to normalize the Pt. experience. Consider other matters of mark and belief. Prayed with the family. 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
--- NOTE | 2025-06-29 16:37 | NUR ---
SHIFT SUMMARY NO ACUTE CHANGES THIS AFTERNOON. PT HAS BEEN RESTING OFF AND ON. PT REMAINS ALERT AND ORIENTED WHEN AWAKE. PT HAS DENIED CHEST PAIN OR DISCOMFORT THIS AFTERNOON. PT WITH HEPARIN GTT INFUSING AT 23 UNITS/KG/HR. PT TAKING SMALL SIPS OF WATER, BUT OTHERWISE NPO. PUREWICK REMAINS IN PLACE WITH LARGE AMOUNT OF YELLOW URINE OUTPUT NOTED. PT SPOUSE AT BEDSIDE FOR MOST OF THE AFTERNOON. PT PENDING TRANSFER TO [facility], NO UPDATE ON BED AVAILABLITY AT THIS TIME. VITAL SIGNS STABLE. WILL CONTINUE TO MONITOR AND REPORT OFF TO ONCOMING RN.
[2025-06-29] MEDS ORDERED: Clarify Drug Order XX ONE (18:00)
[2025-06-30] VITALS (21 sets, daily range): BP systolic 95–133; BP diastolic 38–82
[2025-06-30 03:59] LABS: BASOPHILS ABSOLUTE AUTO 0.04 K/mm3 (0.00-0.23); BASOPHILS PERCENT AUTO 0 % (0-2); EOSINOPHILS ABSOLUTE AUTO 0.34 K/mm3 (0.00-0.68); EOSINOPHILS PERCENT AUTO 3 % (0-6); Hematocrit 33.1 % (37.0-53.0); Hemoglobin 10.8 g/dL (13.5-17.5); IMMATURE GRAN ABSOLUTE AUTO 0.14 K/mm3 (0.00-0.10); IMMATURE GRAN PERCENT AUTO 1 % (0-1); LYMPHOCYTES ABSOLUTE AUTO 1.04 K/mm3 (0.84-5.20); LYMPHOCYTES PERCENT AUTO 9 % (21-46); MONOCYTES ABSOLUTE AUTO 1.09 K/mm3 (0.16-1.47); MONOCYTES PERCENT AUTO 10 % (4-13); Mean Corpuscular HGB Conc 32.6 g/dL (31.5-36.5); Mean Corpuscular Volume 93 fL (80-100); NEUTROPHILS ABSOLUTE AUTO 8.51 K/mm3 (1.96-9.15); NEUTROPHILS PERCENT AUTO 76 % (41-73); NRBC ABSOLUTE 0.00 K/mm3 (0.00-0.02); NRBC Auto 0.0 /100 WBC (0.0-0.2); Platelet Count 218 K/mm3 (150-400); RDW Coefficient Variation 16.1 % (11.7-14.2); RDW Standard Deviation 55.2 fL (35.1-46.3)
--- NOTE | 2025-06-30 06:44 | NUR ---
TRANSFER TO [facility] REPORT CALLED TO [facility], AMBULANCE PICKED UP AND LEFT WITH PATIENT AT 0644. VSS UPON TRANSFER TO EMS.
[2025-06-30] MEDS ORDERED: Clarify Drug Order XX ONE (06:45)
== END 2025-06-30 06:45 | disposition short-term general hospital (02) | DRG 871 ==
LOC: ER 11:03 → ICUE 11:04 → ER 15:45 → ICUE 16:26 → PCU 06-26 14:26 → ICUE 06-29 11:42
PROVIDERS: Internal Medicine Critical Care Medicine; Nurse Practitioner Acute Care; Student in an Organized Health Care Education/Training Program; ADMIT Internal Medicine
PROC: 3E03329 Introduction of Other Anti-infective into Peripheral Vein, Percutaneous Approach (ICD-10-PCS; principal; 2025-06-25)
PROC: 3E033XZ Introduction of Vasopressor into Peripheral Vein, Percutaneous Approach (ICD-10-PCS; 2025-06-25)
PROC: 4A023N7 Measurement of Cardiac Sampling and Pressure, Left Heart, Percutaneous Approach (ICD-10-PCS; 2025-06-27)
PROC: B2111ZZ Fluoroscopy of Multiple Coronary Arteries using Low Osmolar Contrast (ICD-10-PCS; 2025-06-27)
PROC: 5A09357 Assistance with Respiratory Ventilation, Less than 24 Consecutive Hours, Continuous Positive Airway Pressure (ICD-10-PCS; 2025-06-29)
DX: A41.9 Sepsis, unspecified organism (principal); G92.8 Other toxic encephalopathy; I21.4 Non-ST elevation (NSTEMI) myocardial infarction; J18.9 Pneumonia, unspecified organism; R65.21 Severe sepsis with septic shock; R57.0 Cardiogenic shock; I50.43 Acute on chronic combined systolic (congestive) and diastolic (congestive) heart failure; J44.0 Chronic obstructive pulmonary disease with (acute) lower respiratory infection; N17.9 Acute kidney failure, unspecified; I13.0 Hypertensive heart and chronic kidney disease with heart failure and stage 1 through stage 4 chronic kidney disease, or unspecified chronic kidney disease; T82.855A Stenosis of coronary artery stent, initial encounter; I25.10 Atherosclerotic heart disease of native coronary artery without angina pectoris; E11.51 Type 2 diabetes mellitus with diabetic peripheral angiopathy without gangrene; G47.33 Obstructive sleep apnea (adult) (pediatric); F32.A Depression, unspecified; E66.9 Obesity, unspecified; E78.5 Hyperlipidemia, unspecified; E03.9 Hypothyroidism, unspecified; N18.9 Chronic kidney disease, unspecified; E11.22 Type 2 diabetes mellitus with diabetic chronic kidney disease; I25.5 Ischemic cardiomyopathy; Y71.2 Prosthetic and other implants, materials and accessory cardiovascular devices associated with adverse incidents; M79.7 Fibromyalgia; E11.65 Type 2 diabetes mellitus with hyperglycemia; Z88.8 Allergy status to other drugs, medicaments and biological substances; Z79.890 Hormone replacement therapy; Z79.4 Long term (current) use of insulin; Z95.5 Presence of coronary angioplasty implant and graft; Z89.512 Acquired absence of left leg below knee; Z79.82 Long term (current) use of aspirin; Z79.02 Long term (current) use of antithrombotics/antiplatelets; Z86.73 Personal history of transient ischemic attack (TIA), and cerebral infarction without residual deficits; Z86.718 Personal history of other venous thrombosis and embolism; Z98.1 Arthrodesis status; Z95.820 Peripheral vascular angioplasty status with implants and grafts; Z87.891 Personal history of nicotine dependence; Z68.36 Body mass index [BMI] 36.0-36.9, adult; Z79.85 Long-term (current) use of injectable non-insulin antidiabetic drugs
CPT/HCPCS: 36415; 71045; 71260; 74177; 76937; 80048; 80053; 80202; 81001; 82803; 82947; 83605; 83690; 83735; 83880; 84484; 85014; 85018; 85025; 85049; 85347; 85520; 85610; 85730; 87040; 87637; 93005; 93010; 93458; 94640; 94660; 94664; 94760; 94762; 96365; 96367; 96375; 99152; 99153; 99285-25; A9270; C1769; C1887; C1894; C8929; G0378; J0456; J0696; J1644; J1815; J1938; J2250; J2405; J3010; J3373; J7030; J7040; J7050; Q9957; Q9967